=== PATIENT | female | born 1935 | race Caucasian/White ===

== ENCOUNTER 2016-07-22 18:20 | Inpatient (IN) ==
[2016-07-22] MEDS ORDERED: HYDROmorphone 2 MG/1 ML VIAL IV STA ×2 (19:20→23:40)
[2016-07-22] MEDS ORDERED: SODIUM CHLORIDE 0.9% 1,000 ML IV STA (19:20)
[2016-07-22] MEDS ORDERED: ONDANSETRON 4 MG/2 ML VIAL IV STA (19:20)
[2016-07-22 19:30] LABS: Basophils # 0.1 10*3/uL (0.0-0.2); Basophils % 0.7 % (0.0-0.8); Eosinophils % 0.1 % (0.00-10.9); Hematocrit 42.9 VOL% (35.7-47.0); Hemoglobin 14.5 GM/DL (12.0-16.0); Immature Granulocytes % 0.4 %; Immature Granulocytes Absolute 0.08 #; Lymphocytes # 6.6 10*3/uL (1.4-4.0); Lymphocytes % 33.1 % (21.3-54.2); Mean Corpuscular HGB Conc 33.8 GM/DL (32-36); Mean Corpuscular Hemoglobin 32 PG (27-34); Mean Corpuscular Volume 93.9 FL (87-102); Mean Platelet Volume 10.7 FL (9.6-12.0); Monocytes # 0.7 10*3/uL (0.11-0.8); Monocytes % 3.7 % (1.7-12.7); Neutrophils # 12.3 10*3/uL (1.4-7.4); Platelet Count 189 T/CUMM (130-400); Red Blood Count 4.57 MC/CUMM (3.8-5.5); Red Cell Distribution Width 12.9 % (9.3-17.3); White Blood Count 19.8 T/CUMM (4-12)
[2016-07-22 19:52] LABS: Alanine Aminotransferase 14 U/L (13-56); Albumin 3.2 G/DL (3.4-5.0); Alkaline Phosphatase 75 U/L (45-117); Aspartate Amino Transferase 17 U/L (0-37); Blood Urea Nitrogen 15 MG/DL (7-18); Calcium 8.5 MG/DL (8.5-10.1); Glucose 131 MG/DL (74-106); Magnesium 1.8 MG/DL (1.8-2.4); Osmolality,Calculated 277.7 MOS/KG (273-304); Potassium 3.8 MMOL/L (3.5-5.1); Sodium 138 MMOL/L (136-145); Total Protein 5.5 G/DL (6.4-8.3); Troponin I Only < 0.015 NG/ML (0.00-0.045)
[2016-07-22] MEDS ORDERED: HYDROmorphone 2 MG/1 ML VIAL ONE (19:52)
[2016-07-22] MEDS ORDERED: ONDANSETRON 4 MG/2 ML VIAL ONE (19:52)
--- NOTE | 2016-07-22 19:53 | EKG Report ---
Stationary ECG Study 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
--- NOTE | 2016-07-22 20:13 | CT Report ---
Referring physician: Michelle Estrella DO EXAM: CT abdomen and pelvis with contrast DATE: 07/22/2016 COMPARISON: 03/21/2010 REASON: Generalized abdominal and pelvic pain TECHNIQUE: Axial images of the abdomen and pelvis were obtained after administration of 100 cc of Omnipaque 350 IV contrast. Coronal and sagittal reformatted images were also provided. Total DLP is 382.8 mGy*cm. FINDINGS: Chronic scarring with progressive atelectasis/infiltration especially in the right lower lobe. Persistent right paraspinal abnormalities at the level of T10-T11 and T11-T12. Some of the measurements fall in the water density range. The more superior finding measures 22 mm on both exams. The more inferior finding measures 28 mm compared to 26 mm. The liver is normal in size with no masses or significant dilatation of the bile ducts in patient with prior cholecystectomy. Calcified granuloma in the nonenlarged spleen. The pancreas is atrophic in size with unremarkable adrenal glands. No acute findings in the kidneys. Calcification in the aortic wall with no significant adjacent adenopathy. Small hiatal hernia with ring like device at the GE junction. Mild gaseous distention of the stomach with dilatation of the small bowel. The small bowel is distended with fluid with the largest loop measuring 37 mm in diameter. There is a transition zone with more distal small bowel nondilated. The transition zone appears to be in the ileum in the pelvis. Diverticulosis of the colon with increased fecal material. No evidence of diverticulitis, appendicitis, or free air. Minimal free fluid in the pelvis. Prior hysterectomy with decompressed urinary bladder. Levoscoliosis of the lumbar spine with degenerative changes and postoperative changes. IMPRESSION: Persistent right paraspinal abnormalities at T10-T11 and T11-T12. The findings have not changed significantly in size and are probably related to neurogenic cysts, etc. Prior cholecystectomy, hysterectomy, laminectomy and postoperative findings in the stomach with ringlike device at the GE junction. Findings consistent with recurrent small bowel obstruction with minimal ascites. Diverticulosis of the colon with increased fecal material. Atrophic pancreas with progress and levoscoliosis of the lumbar spine and degenerative changes. The CT exam was performed using one or more of the following dose reduction techniques: Automated exposure control and adjustment of the mA and/or kV according to patient size. PROCEDURE INTERPRETED AT [facility] DEPARTMENT OF RADIOLOGY Final Report Signed by: Dr. Rosette Perdomo
[2016-07-22 20:23] LABS: Lactic Acid 1.6 MMOL/L (0.4-2.0)
[2016-07-22 21:52] LABS: Apearance,Urine CLEAR (Clear); Bacteria,Urine Occasional /HPF (Few); Bilirubin,Urine Negative (Negative); Blood, Urine Moderate mg/dL (Negative); Glucose,Urine (UA) Negative (Negative); Ketones,Urine 5 mg/dL (Negative); Mucus,Urine Occasional /LPF (Occasional); Nitrite,Urine Negative (Negative); Protein,Urine Negative; RBC,Urine 34 /HPF (0-4); Squamous Epithelial Cell,Urine Occasional /HPF (0-10); Urine Color Yellow (Yellow); Urine Specific Gravity > 1.060 (1.001-1.035); Urine Urobilinogen < 2.0 EU/DL (0.2-1.0)
[2016-07-22] MEDS ORDERED: HYDROmorphone 2 MG/1 ML VIAL IV PRN (22:54)
--- NOTE | 2016-07-22 22:54 | Emergency Department Note ---
Roger Richardson Brittany, am scribing for, and in the presence of, Michelle Estrella DO 19:16. Sameer Richardson Catherine, DO, personally performed the services described in this documentation, ascribed by Cherie Duran in my presence, and it is both accurate and complete . Arrival - Arrival Chief Complaint: Abdominal / Flank Pain Stated Complaint: abdominal pain ED Nursing Triage Note: Brought in per EMS from home with c/o abdominal pain onset yesterday. Describes as cramping. +nausea/vomiting. +subjective fever-- 99.1. Last bowel movement this am--describes as hard. Also c/o cough. Mode of Arrival: Stretcher Limitations: No Limitations Source: Patient, RN Notes Reviewed Time Seen by Provider: 07/22/16 18:39 - History of Present Illness HPI Narrative: Patient is a 81 y/o white female with a history significant for Diverticulitis presenting to the ED with c/o severe lower abdominal pain with an onset of yesterday. Patient reports that she has had some associated nausea and vomiting , but denies having any diarrhea. Patient notes last bowel movement was this morning, but describes consistency as hard. Last normal bowel movement without difficulties was 2-3 days ago. Patient states that she has ran a fever today, but attributes this to recent upper respiratory symptoms. Patient reports that she has not been seen by PCP Dr. Monsivais in about 3 months due to difficulty trying to get in to see him. Patient was diagnosed with Diverticulitis some years ago after having a Upper GI Scope. She was in the process of getting a Colonoscopy prior to the Upper GI Scope, but was not able to fulfill due to collapse of her colon. Patient notes that current GI upset secondary to Diverticulitis is the first in 3 years. She reports that she has been taking Coreg and a Potassium supplement as prescribed. No other complaint/pain. Patient has a surgical history of Cholecystectomy, Appendectomy, Hysterectomy, Caesarean Section x2, Lumpectomy. Onset (ago): day(s) (1) Consistency: constant Severity: severe Severity scale (1-10): 9 Quality: aching Allergies/Adverse Reactions: Allergies Allergy/AdvReac Type Severity Reaction Status Date / Time aspirin Allergy Palpitation Verified 07/22/16 18:29 s levofloxacin [From Levaquin] Allergy HIVES Verified 07/22/16 19:56 Penicillins Allergy UNCONSCIOUS Verified 07/22/16 18:29 Sulfa (Sulfonamide Allergy HIVES Verified 07/22/16 18:29 Antibiotics) Home Medications: Home Medications Medication Instructions Recorded Confirmed Type HYDROcodone/ACETAMIN 7.5-325 1 tablet PO Q4H PRN #20 tablet 03/15/16 07/22/16 Rx [[place] 7.5-325] Carvedilol [Coreg] 12.5 mg PO BID 07/22/16 07/22/16 History Losartan [Cozaar] 25 mg PO BEDTIME 07/22/16 07/22/16 History Review of System - Review of System 12 point system: reviewed and no additional remarkable complaints except as stated - Review of System Constitutional: Present: fever. Absent: chills Eyes: Absent: vision change Head/Ears/Nose/Throat: Present: nasal drainage, sore throat Respiratory: Present: cough. Absent: respiratory distress Cardiovascular: Absent: chest pain Gastrointestinal: Present: as per HPI, abdominal pain, nausea, vomiting. Absent : diarrhea, constipation Genitourinary female: Absent: dysuria, frequency, urgency Musculoskeletal: Absent: arm pain, back pain, leg pain, neck pain Skin: Absent: rash Neurological: Absent: headache Psychiatric: Absent: anxiety, depression Hematological/Lymphatic: Absent: easy bleeding, easy bruising Medical,Surgical,& Family Hx - Medical History Cardio: History of: Cardiac Dysrhythmia (history of SVT ), Hypertension, [place] Neurology: History of: Cerebrovascular Accident, Migraine Respiratory: History of: Bronchitis Gastrointestinal: History of: Diverticulitis/ Diverticulosis, GI Problems ( constipation) Musculoskeletal: History of: Herniated Disk, Musculoskeletal Problems (arthritis ) Other: No history of: Cancer - Surgical History Cardiac Surgeries: Sugical HX of: Cardiac Catheterization Thoracic Surgeries: Patient denies;: Organ Transplant Abdominal Surgeries: Surgical HX of: Appendectomy, Cholecystectomy Reproductive Surgeries: Surgical HX of;: Section, Hysterectomy Orthopedic Surgeries: Surgical HX of;: Orthopedic Surgery - Family History Family History: Reports;: Family Cancer (two sisters (breast cancer)), Family Heart Disease (mother and father), Family Hypertension (mother and father), Family Stroke (mother and father) - Social History Smoking Status: Former smoker Frequency of Alcohol Use: None Type of Drug Use: None Exam Vital Signs: Vital Signs Temperature 98.0 F 04/14/17 18:43 Pulse Rate 70 07/22/16 18:43 Respiratory Rate 18 07/22/16 18:43 Blood Pressure 134/69 07/22/16 18:43 O2 Sat by Pulse Oximetry 96 07/22/16 18:20 - General General appearance: alert, in no apparent distress - Head Head exam: Present: atraumatic, normocephalic, normal inspection - Eye Eye exam: Present: normal appearance, PERRL, EOMI - ENT ENT exam: Present: normal exam, normal oropharynx, mucous membranes moist - Neck Neck exam: Present: normal inspection, full ROM, trachea midline - Chest Chest inspection: Present: normal inspection, symmetric chest wall rise - Respiratory Respiratory exam: Present: normal lung sounds bilaterally. Absent: rales, rhonchi, wheezes - Cardiovascular Cardiovascular exam: Present: regular rate, normal rhythm, normal heart sounds. Absent: murmur, rubs, gallop - Abdominal Exam Abdominal exam: Present: soft, tenderness (diffuse lower abdominal pain to palpation), normal bowel sounds. Absent: distention - Extremities Exam Extremities exam: Present: normal inspection - Back Exam Back exam: Present: normal inspection - Neurological Exam Neurological exam: Present: alert, oriented X3, CN II-XII intact. Absent: motor sensory deficit - Psychiatric Psychiatric exam: Present: normal affect - Skin Skin exam: Present: warm, dry Course Course Narrative: This is an 81-year-old female who is coming into the ER today complaining of 2 days of lower abdominal pain. She does have a history of diverticulitis and thought that that's what was going on. She reports she is unable to E because it causes pain she's been having normal bowel movements however she was slightly constipated this morning she's had no urinary complaints she's had no fever or chills. Her sense that she normally does not complain and was very uncomfortable today with her pain. She was last admitted for her diverticulitis approximately 3-4 months ago. No symptoms are reported physical exam she is awake alert viral signs are stable HEENT exam is drawn neck is supple heart is regular rhythm her lungs are clear abdomen is round soft she is diffusely tender but she seems to localize her pain to the left lower quadrant and the suprapubic area did not appreciate rebound or guarding bowel sounds are hyperactive at this time. History of his were intact neurologic exam is nonfocal treatment included IV hydration we did give her 70 for pain and placed an NG tube and a full workup. Her CT scan shows a partial small bowel obstruction. Her blood work was also reviewed. I did place a phone call to the general surgeon Dr. Hardy we will be placing her inside the hospital for treatment of the diverticulitis. She will be placed on clindamycin and given an NG tube. The patient and her family's agreement with this treatment. - Consultations Consultation #1: Dr. Noland Time: 22:53 Results - Labs CBC & BMP: 07/22/16 19:14 07/22/16 19:14 Lab Results: I have reviewed the patients labs - EKG EKG results: WNL, no acute changes - Diagnostic Findings Procedure: CT Abdomen and Pelvis: report reviewed by me (partial SBO) Disposition Clinical Impression: Abdominal pain, Small bowel obstruction Case discussed with: patient, patient's family Disposition: Still a Patient Condition: Stable Time of Disposition: 22:54
[2016-07-23] MEDS: SODIUM CHLORIDE 0.9% 1,000 ML IV SCH ×2 (00:46→14:18)
[2016-07-23] MEDS: CLINDAMYCIN INJ 600 MG in PREMIX 1 EACH IV SCH ×3 (01:23→16:41)
[2016-07-23] MEDS ORDERED: AMIODARONE INJ 450 MG in DEXTROSE 5% 241 ML IV SCH ×2 (04:00→22:00)
--- NOTE | 2016-07-23 08:09 | XRay Report ---
Portable chest Date: 07/23/2016 Clinical history: Nasogastric tube placement Comparison: 03/14/2016 Technique: Portable AP sitting chest Findings: The heart is normal in size. Chronic scarring in the lungs with minimal atelectasis. The nasogastric tube is in satisfactory position. Postoperative findings in the upper abdomen with gaseous distention of the visualized bowel. Impression: Nasogastric tube in satisfactory position in the stomach. Chronic scarring in the lungs with atelectasis. Postoperative findings in the upper abdomen. PROCEDURE INTERPRETED AT [facility] DEPARTMENT OF RADIOLOGY Final Report Signed by: Dr. Rosette Perdomo
--- NOTE | 2016-07-23 08:24 | General Surg History&Physical ---
Assessment and Plan - Time spent with patient Time spent with patient: Greater than 30 minutes (1) Small bowel obstruction Status: Acute Assessment and plan: She has a small bowel obstruction likely secondary to intra-abdominal adhesions. I reviewed her CT scan and she has a patent superior mesenteric artery and I think it would be unlikely that she has ischemic bowel. She has nothing that shows acidosis or signs of ischemia on her lab work. Her white blood cell count is a little bit elevated. Patient states she recently has had a urinary tract infection recently had an upper respiratory infection. We will check follow-up lab work. I'm going to treat her with IV fluids and nasogastric suction for now. I explained to her that if her small bowel obstruction does not resolve with this conservative treatment and we may need to look at surgery. Current Visit: Yes (2) Leukocytosis Status: Acute Assessment and plan: It is unclear if this is related to her intra-abdominal process. I'm treating her with IV antibiotics and IV fluids. Current Visit: Yes History of Present Illness Chief complaint: abdominal pain History of present illness: Ms. Ryan is a 81 year old female Yesterday morning had a gradual onset of lower abdominal pain which was cramping and poorly localized. She describes the pain is moderately severe and actually feels a little bit better this morning. She had a nasogastric tube placed several hours ago and is had about 700 mL of output. She describes the pain is being in her lower abdomen more on the left side than the right side. She does not know of any aggravating or alleviating factors. She is recently had an upper respiratory infection and has had some low-grade fever related to this couple of days ago. She is had some cough as well. CT scan was obtained last night showing a small bowel obstruction. She has had multiple previous abdominal operations. Home Medications Medication Instructions Recorded Confirmed Type HYDROcodone/ACETAMIN 7.5-325 1 tablet PO Q4H PRN #20 tablet 03/15/16 07/22/16 Rx [[place] 7.5-325] Carvedilol [Coreg] 12.5 mg PO BID 07/22/16 07/22/16 History Losartan [Cozaar] 25 mg PO BEDTIME 07/22/16 07/22/16 History Allergies Allergy/AdvReac Type Severity Reaction Status Date / Time aspirin Allergy Palpitation Verified 07/22/16 18:29 s levofloxacin [From Levaquin] Allergy HIVES Verified 07/22/16 19:56 Penicillins Allergy UNCONSCIOUS Verified 07/22/16 18:29 Sulfa (Sulfonamide Allergy HIVES Verified 07/22/16 18:29 Antibiotics) Medical,Surgical,& Family Hx - Medical History Cardio: History of: Cardiac Dysrhythmia (history of SVT ), Hypertension, [place] Neurology: History of: Cerebrovascular Accident, Migraine HEENT: History of: Eye Problem Respiratory: History of: Bronchitis Gastrointestinal: History of: Diverticulitis/ Diverticulosis, GI Problems ( constipation) Musculoskeletal: History of: Herniated Disk, Musculoskeletal Problems (arthritis ) Other: No history of: Cancer - Surgical History Cardiac Surgeries: Sugical HX of: Cardiac Catheterization Thoracic Surgeries: Patient denies;: Organ Transplant Abdominal Surgeries: Surgical HX of: Appendectomy, Cholecystectomy Reproductive Surgeries: Surgical HX of;: Section, Hysterectomy Orthopedic Surgeries: Surgical HX of;: Orthopedic Surgery - Family History Family History: Reports;: Family Cancer (two sisters (breast cancer)), Family Heart Disease (mother and father), Family Hypertension (mother and father), Family Stroke (mother and father) - Social History Smoking Status: Former smoker Frequency of Alcohol Use: None Type of Drug Use: None Exam - Constitutional Vitals: Period Temp Pulse Resp BP Sys/Watt Pulse Ox Last 24 Hr 70 F-98.3 F 59-63 14-18 116-129/51-57 95-98 General appearance: no acute distress - Head Head exam: Present: normocephalic - Eye Eye exam: Absent: scleral icterus - ENT Mouth exam: Present: normal voice - Neck Neck exam: Present: trachea midline. Absent: tenderness - Respiratory Respiratory exam: Present: clear to auscultation bilaterally. Absent: accessory muscle use - Cardiovascular Cardiovascular exam: Present: RRR - GI/Abdominal GI/Abdominal exam: Present: hyperactive bowel sounds, soft. Absent: distended, tenderness, rebound - Extremities Exam Extremities exam: Absent: edema - Neurological Exam Neurological exam: Present: alert, oriented X3. Absent: motor sensory deficit Speech: Present: normal - Skin Skin exam: Present: normal color - Constitutional Constitutional: Present: anorexia. Absent: chills, fever(s), weight loss - EENT Nose, mouth and throat: Absent: dysphagia - Cardiovascular Cardiovascular: Absent: chest pain at rest, chest pain with activity, dyspnea, dyspnea on exertion, palpitations, syncope - Respiratory Respiratory: Present: cough. Absent: dyspnea, hemoptysis, dyspnea on exertion - Gastrointestinal Gastrointestinal: Present: abdominal pain, bloating, cramping, nausea, vomiting. Absent: coffee ground emesis, diarrhea, hematemesis, hematochezia, melena, jaundice - Genitourinary Genitourinary: Absent: hematuria - Musculoskeletal Musculoskeletal: Absent: back pain - Neurological Neurological: Absent: focal weakness, syncope - Endocrine Endocrine: Absent: polyuria Hematologic/Lymphatic: Absent: easy bleeding, easy bruising Results - Labs CBC & BMP: 07/22/16 19:14 07/22/16 19:14 Lab Results: I have reviewed the past 24 hour labs - Diagnostic Findings Procedure: CT Abdomen and Pelvis: image reviewed by me, report reviewed by me
[2016-07-23] MEDS: MORPHINE 2 MG/1 ML SYRINGE IV PRN ×2 (09:32→13:35)
[2016-07-23] MEDS: ONDANSETRON 4 MG/2 ML VIAL IV PRN (09:34)
[2016-07-23] MEDS ORDERED: METOPROLOL TARTRATE 5 MG/5 ML VIAL IV ONE ×2 (20:00)
[2016-07-23 20:17] LABS: Basophils # 0.1 10*3/uL (0.0-0.2); Basophils % 0.7 % (0.0-0.8); Eosinophils % 0.1 % (0.00-10.9); Hematocrit 40.9 VOL% (35.7-47.0); Hemoglobin 13.5 GM/DL (12.0-16.0); Immature Granulocytes % 0.5 %; Immature Granulocytes Absolute 0.09 #; Lymphocytes % 32.5 % (21.3-54.2); Mean Corpuscular Hemoglobin 32 PG (27-34); Mean Platelet Volume 10.6 FL (9.6-12.0); Monocytes # 1.2 10*3/uL (0.11-0.8); Monocytes % 6.4 % (1.7-12.7); Neutrophils % 59.8 % (38.7-73.9); Platelet Count 178 T/CUMM (130-400); Red Blood Count 4.26 MC/CUMM (3.8-5.5); Red Cell Distribution Width 13.1 % (9.3-17.3); White Blood Count 18.5 T/CUMM (4-12)
--- NOTE | 2016-07-23 20:17 | XRay Report ---
Portable chest Date: 07/23/2016 Clinical history: Chest pain Comparison: 07/23/2016 Technique: Portable AP sitting chest Findings: The heart is normal in size. Chronic scarring in the lungs with progressive atelectasis/infiltration at right lung base. Nasogastric tube in the stomach. Postoperative findings in the upper abdomen. Osteopenia with degenerative changes. Impression: Nasogastric tube remains in satisfactory position. Progressive atelectasis/infiltration at right lung base. PROCEDURE INTERPRETED AT [facility] DEPARTMENT OF RADIOLOGY Final Report Signed by: Dr. Rosette Perdomo
[2016-07-23 20:31] LABS: Magnesium 1.7 MG/DL (1.8-2.4); Phosphorous 3.5 MG/DL (2.5-4.9)
--- NOTE | 2016-07-23 21:02 | Hospitalist Consult Note ---
Assessment and Plan - Time spent with patient Time spent with patient: Greater than 30 minutes (45 minutes of critical care time spent with this patient.) (1) Chest pain Status: Acute Current Visit: Yes Qualifiers: Chest pain type: chest pain due to myocardial ischemia Ischemic chest pain type: unspecified angina pectoris type Qualified Code(s): I20.9 - Angina pectoris, unspecified (2) Atrial fibrillation with RVR Status: Acute Assessment and plan: Admit to CCU. Amiodarone drip. Telemetry. Cardiac markers. ECHO. Replace lytes as needed. Check TSH. Cardiology consult in AM. Add Arixtra. Current Visit: No (3) Small bowel obstruction Status: Acute Assessment and plan: Management per primary service Current Visit: Yes (4) Hypertension Status: Acute Assessment and plan: Blood pressure was actually low likely due to tachycardia and decreased cardiac output. Will monitor closely. Gentle IVF. Current Visit: Yes History of Present Illness - Data of Consult Consult date: 07/23/16 Requesting Physician: Omar Noland III. - Consult Narrative Reason for consult: cardiac alert History of present illness: Ms. Ryan is a 81 year old female with a history of afib, HTN, CAD s /p VT and COPD and multiple abdominal surgeries who presented to the hospital with nausea, vomiting and abdominal pain. She was found to have SBO and was being treated by surgery with conservative treatment. We were called to see patient via cardiac alert due to complaints of left sided intermittent sharp/ dull chest pain that radiated to left arm associated with SOB. No nausea, vomiting, abdominal pain, diaphoresis. She has had a wet sounding coarse cough. No fever. No lightheadedness or dizziness. She reports a moderate throbbing diffuse headache without photo/phonophobia, parasthesias, or paralysis. No neck stiffness. EKG showed afib with RPR at [address] depression in V4-V6. Cardiac panel, BMP , MG, Phos were ordered Stat. CXR showed hyperaeration chronic interstitial findings but no infiltrate or edema. She was given Lopressor 5mg IV x 1. She developed hypotension to 80/50's. She was transferred to CCU for further treatment. A 10-point review of systems was reviewed with the patient and was otherwise unremarkable. CC: Omar Noland III., - Home Medications and Allergies Home Medications: Home Medications Medication Instructions Recorded Confirmed Type HYDROcodone/ACETAMIN 7.5-325 1 tablet PO Q4H PRN #20 tablet 03/15/16 07/22/16 Rx [[place] 7.5-325] Carvedilol [Coreg] 12.5 mg PO BID 07/22/16 07/22/16 History Losartan [Cozaar] 25 mg PO BEDTIME 07/22/16 07/22/16 History Allergies/Adverse Reactions: Allergies Allergy/AdvReac Type Severity Reaction Status Date / Time aspirin Allergy Palpitation Verified 07/22/16 18:29 s levofloxacin [From Levaquin] Allergy HIVES Verified 07/22/16 19:56 Penicillins Allergy UNCONSCIOUS Verified 07/22/16 18:29 Sulfa (Sulfonamide Allergy HIVES Verified 07/22/16 18:29 Antibiotics) Medical,Surgical,& Family Hx - Medical History Cardio: History of: Cardiac Dysrhythmia (history of SVT ), Hypertension, [place] Neurology: History of: Cerebrovascular Accident, Migraine HEENT: History of: Eye Problem Respiratory: History of: Bronchitis Gastrointestinal: History of: Diverticulitis/ Diverticulosis, GI Problems ( constipation) Musculoskeletal: History of: Herniated Disk, Musculoskeletal Problems (arthritis ) Other: No history of: Cancer - Surgical History Cardiac Surgeries: Sugical HX of: Cardiac Catheterization Thoracic Surgeries: Patient denies;: Organ Transplant Abdominal Surgeries: Surgical HX of: Appendectomy, Cholecystectomy Reproductive Surgeries: Surgical HX of;: Section, Hysterectomy Orthopedic Surgeries: Surgical HX of;: Orthopedic Surgery - Family History Family History: Reports;: Family Cancer (two sisters (breast cancer)), Family Heart Disease (mother and father), Family Hypertension (mother and father), Family Stroke (mother and father) - Social History Smoking Status: Former smoker Frequency of Alcohol Use: None Type of Drug Use: None 12 point system: reviewed and no additional remarkable complaints except as stated Exam - Constitutional Vitals: Period Temp Pulse Resp BP Sys/Watt Pulse Ox Last 24 Hr 70 F-100.1 F 59-75 14-18 116-147/51-83 90-99 General appearance: no acute distress, cachectic, other (chronically ill appearing, elderly) Exam: GEN: chronically ill appearing, elderly, NAD HEENT: PERRL, EOMI, sclera clear, conjunctiva slightly pale NECK: supple, no thyromegaly or masses appreciated. No JVD CV: irregularly irregular rate and rhythm, No obvious murmursm rubs, gallops LUNGS: slightly coarse bilaterally, fair aeration, nonlabored breathing noted ABDOMEN: Soft, hypoactive bowel sounds, NTTP, no HSM or masses appreciated EXTREMITIES: Warm no c/c/e. NEURO: CN2-12 intact, 4/5 strength of upper and lower extremities bilaterally. No dysmetria noted. Sensory exam grossly intact. Gait not assessed. Results - Labs CBC & BMP: 07/23/16 20:03 07/22/16 19:14 - EKG EKG shows: atrial fibrillation - Diagnostic Findings Procedure: Chest x-ray: image reviewed by me (hyperaeration with no acute process noted.)
[2016-07-23] MEDS ORDERED: KETOROLAC 15 MG/1 ML VIAL IV ONE (21:17)
[2016-07-23 21:18] LABS: Albumin 3.1 G/DL (3.4-5.0); Calcium 8.2 MG/DL (8.5-10.1); Magnesium 1.7 MG/DL (1.8-2.4); Osmolality,Calculated 281.3 MOS/KG (273-304); Potassium 3.7 MMOL/L (3.5-5.1); Total Protein 5.3 G/DL (6.4-8.3); Troponin I Only 0.022 NG/ML (0.00-0.045)
[2016-07-23] MEDS ORDERED: AMIODARONE 150 MG/3 ML VIAL ONE (21:22)
[2016-07-23] MEDS ORDERED: MAGNESIUM SULF RIDER 4 GM in PREMIX 1 EACH IV PRN (21:26)
[2016-07-23] MEDS ORDERED: AMIODARONE INJ 150 MG in DEXTROSE 5% 100 ML IV ONE (21:30)
[2016-07-23] MEDS: MAGNESIUM SULF RIDER 2 GM in PREMIX 1 EACH IV PRN (22:14)
[2016-07-23 22:18] LABS: Troponin I Only 0.035 NG/ML (0.00-0.045)
[2016-07-23] MEDS: BUDESONIDE/FORMOTEROL 80-4.5 INHALER 6.9 GM INH SCH (22:21)
[2016-07-23 22:23] LABS: Free T4 (Free Thyroxine) 1.55 NG/DL (0.76-1.46); Thyroid Stimulating Hormone 0.728 uIU/ml (0.358-3.74)
[2016-07-23] MEDS: LEVALBUTEROL 1.25 MG/3 ML NEB RESP TX SCH (22:48)
[2016-07-24] MEDS: CLINDAMYCIN INJ 600 MG in PREMIX 1 EACH IV SCH ×3 (00:11→17:12)
--- NOTE | 2016-07-24 00:58 | Event Note ---
Patient is on amiodarone infusion for atrial fibrillation with rapid ventricular rate reported to have some frequent sinus pauses. Her blood pressure is low in 90s over 60s I will stop amiodarone infusion patient to be seen by cardiology. Will watch and start on Cardizem if rate remained elevated and the patient able to tolerate
[2016-07-24] MEDS ORDERED: SODIUM CHLORIDE 0.9% 500 ML IV ONE (01:06)
[2016-07-24] MEDS: DILTIAZEM INJ 100 MG in SODIUM CHLORIDE 0.9% 100 ML IV SCH ×2 (01:30→05:22)
[2016-07-24] MEDS: SODIUM CHLORIDE 0.9% 1,000 ML IV SCH ×4 (01:50→22:05)
[2016-07-24 02:09] LABS: Apearance,Urine Slightly Hazy (Clear); Bilirubin,Urine Negative (Negative); Blood, Urine Large mg/dL (Negative); Glucose,Urine (UA) Negative (Negative); Hyaline Casts,Urine 13 /LPF (0-3); Ketones,Urine 20 mg/dL (Negative); Mucus,Urine Occasional /LPF (Occasional); Nitrite,Urine Negative (Negative); Protein,Urine 30 MG/DL; RBC,Urine 7 /HPF (0-4); Squamous Epithelial Cell,Urine Occasional /HPF (0-10); Urine Color Yellow (Yellow); Urine Specific Gravity 1.018 (1.001-1.035); Urine Urobilinogen < 2.0 EU/DL (0.2-1.0); WBC,Urine 3 /HPF (0-6)
[2016-07-24] MEDS ORDERED: AMIODARONE INJ 450 MG in DEXTROSE 5% 241 ML IV SCH ×2 (04:00→13:30)
[2016-07-24 05:03] LABS: Basophils # 0.2 10*3/uL (0.0-0.2); Eosinophils % 0.1 % (0.00-10.9); Hematocrit 39.7 VOL% (35.7-47.0); Immature Granulocytes % 0.4 %; Immature Granulocytes Absolute 0.06 #; Lymphocytes # 6.6 10*3/uL (1.4-4.0); Lymphocytes % 38.9 % (21.3-54.2); Mean Corpuscular HGB Conc 32.7 GM/DL (32-36); Mean Corpuscular Hemoglobin 32 PG (27-34); Mean Corpuscular Volume 96.4 FL (87-102); Mean Platelet Volume 11.3 FL (9.6-12.0); Monocytes # 1.1 10*3/uL (0.11-0.8); Monocytes % 6.5 % (1.7-12.7); Neutrophils % 53.1 % (38.7-73.9); Platelet Count 151 T/CUMM (130-400); Red Blood Count 4.12 MC/CUMM (3.8-5.5); Red Cell Distribution Width 13.1 % (9.3-17.3); White Blood Count 16.9 T/CUMM (4-12)
[2016-07-24 05:37] LABS: Magnesium 2.4 MG/DL (1.8-2.4); Osmolality,Calculated 278.3 MOS/KG (273-304); Potassium 3.5 MMOL/L (3.5-5.1)
[2016-07-24 05:38] LABS: Albumin 2.5 G/DL (3.4-5.0); Calcium 7.9 MG/DL (8.5-10.1); Osmolality,Calculated 278.3 MOS/KG (273-304); Phosphorous 3.4 MG/DL (2.5-4.9); Potassium 3.6 MMOL/L (3.5-5.1)
[2016-07-24 06:07] LABS: Troponin I Only 0.059 NG/ML (0.00-0.045)
[2016-07-24] MEDS ORDERED: KETOROLAC 15 MG/1 ML VIAL IV ONE (06:07)
--- NOTE | 2016-07-24 06:22 | General Surgery Progress Note ---
Assessment and Plan (1) Small bowel obstruction Status: Acute Assessment and plan: She has a small bowel obstruction likely secondary to intra-abdominal adhesions. I reviewed her CT scan and she has a patent superior mesenteric artery and I think it would be unlikely that she has ischemic bowel. She has nothing that shows acidosis or signs of ischemia on her lab work. Her white blood cell count is a little bit elevated. Patient states she recently has had a urinary tract infection recently had an upper respiratory infection. We will check follow-up lab work. I'm going to treat her with IV fluids and nasogastric suction for now. I explained to her that if her small bowel obstruction does not resolve with this conservative treatment and we may need to look at surgery. 07/24: She denies any abdominal pain this morning. Her abdomen seems less distended and is not tender at all. During the night she went into atrial fibrillation with a rapid ventricular response is a question whether or not there was a cardiac event. She is moved to the CCU in her right has been managed by Hospital medicine and cardiology has been consulted. There is also question of developing pneumonia in her right lower lobe. She is on IV antibiotics. His may be the source of her elevated white blood cell count. It appears that her small bowel obstruction is responding to conservative treatment. Certainly we would like to avoid surgery if possible in this patient with multiple other medical issues. Current Visit: Yes (2) Leukocytosis Status: Acute Assessment and plan: It is unclear if this is related to her intra-abdominal process. I'm treating her with IV antibiotics and IV fluids. Current Visit: Yes Subjective Patient reports: Present: feels better. Absent: still having pain, nausea, vomiting, fever Exam - Constitutional Vitals: Period Temp Pulse Resp BP Sys/Watt Pulse Ox Last 24 Hr 97 F-100.1 F 64-145 12-26 59-147/47-87 90-100 General appearance: no acute distress - Head Head exam: Present: normocephalic - Eye Eye exam: Absent: scleral icterus - ENT Mouth exam: Present: normal voice - Respiratory Respiratory exam: Absent: accessory muscle use - GI/Abdominal GI/Abdominal exam: Present: soft. Absent: distended, guarding, tenderness, rebound - Neurological Exam Neurological exam: Present: alert, oriented X3 Speech: Present: normal Results - Labs CBC & BMP: 07/24/16 04:18 07/24/16 04:18 Lab Results: I have reviewed the past 24 hour labs
[2016-07-24] MEDS: LEVALBUTEROL 1.25 MG/3 ML NEB RESP TX SCH ×3 (07:13→23:14)
--- NOTE | 2016-07-24 07:54 | Cardiology Consult Note ---
History of Present Illness - Data of Consult Patient: new to practice Consult date: 07/24/16 - Consult Narrative History of present illness: Cardiology consult 81-year-old woman admitted with lower abdominal pain. She has small bowel obstruction secondary to adhesions. Today she went into rapid atrial fibrillation with ventricular rates of 140-150. She was placed on IV Cardizem and has been having long pauses of up to 6 seconds. The patient has a history of paroxysmal atrial fibrillation and takes Coreg 12.5 mg twice daily. She has been followed by Dr. Scott for 20 years who recently retired. No history of stroke. She quit smoking 3 years ago but did smoke 60 years. She does not drink any alcohol. No history of diabetes. No history of peptic ulcer disease. She denies melena. She is 5 feet 4 inches tall and weighs 111 pounds. She has always been diminutive. Yesterday's EKG showed sinus rhythm with left axis and ST-T wave changes. Chest x-ray shows a normal heart size with chronic interstitial changes. Surgeries include appendectomy, cholecystectomy, , hysterectomy, lumbar laminectomy, bilateral cataract extractions. Multiple allergies including sulfa penicillin and Levaquin. Aspirin causes tachycardia. Blood pressure 114/76 pulse is 120-140 and irregular. O2 sat is 95% on on 4 L cannula. Alert and responsive. Soft right carotid bruit. Decreased breath sounds but fairly clear. Irregular rhythm and tachycardic no murmur Abdomen mildly tender on the left side femoral pulses 2+ without bruits of pulses 2+ no edema Impression Small bowel obstruction surgery to adhesions Paroxysmal atrial fibrillation with pauses up to 6 seconds while on IV Cardizem Hypertension History of paroxysmal atrial fibrillation on Coreg 12.5 mg twice daily COPD Longtime tobacco abuse. 60 pack years, she quit 2013 Multiple surgeries Multiple allergies Plan Echo now Cardioversion. Her son Ilya is in route to the hospital now CC: Omar Noland, III., - Home Medications and Allergies Home Medications: Home Medications Medication Instructions Recorded Confirmed Type HYDROcodone/ACETAMIN 7.5-325 1 tablet PO Q4H PRN #20 tablet 03/15/16 07/22/16 Rx [Valentine 7.5-325] Carvedilol [Coreg] 12.5 mg PO BID 07/22/16 07/22/16 History Losartan [Cozaar] 25 mg PO BEDTIME 07/22/16 07/22/16 History Allergies/Adverse Reactions: Allergies Allergy/AdvReac Type Severity Reaction Status Date / Time aspirin Allergy Palpitation Verified 07/22/16 18:29 s levofloxacin [From Levaquin] Allergy HIVES Verified 07/22/16 19:56 Penicillins Allergy UNCONSCIOUS Verified 07/22/16 18:29 Sulfa (Sulfonamide Allergy HIVES Verified 07/22/16 18:29 Antibiotics) Medical,Surgical,& Family Hx - Medical History Cardio: History of: Cardiac Dysrhythmia (history of SVT ), Hypertension, [place] Neurology: History of: Cerebrovascular Accident, Migraine HEENT: History of: Eye Problem Respiratory: History of: Bronchitis Gastrointestinal: History of: Diverticulitis/ Diverticulosis, GI Problems ( constipation) Musculoskeletal: History of: Herniated Disk, Musculoskeletal Problems (arthritis ) Other: No history of: Cancer - Surgical History Cardiac Surgeries: Sugical HX of: Cardiac Catheterization Thoracic Surgeries: Patient denies;: Organ Transplant Abdominal Surgeries: Surgical HX of: Appendectomy, Cholecystectomy Reproductive Surgeries: Surgical HX of;: Section, Hysterectomy Orthopedic Surgeries: Surgical HX of;: Orthopedic Surgery - Family History Family History: Reports;: Family Cancer (two sisters (breast cancer)), Family Heart Disease (mother and father), Family Hypertension (mother and father), Family Stroke (mother and father) - Social History Smoking Status: Former smoker Frequency of Alcohol Use: None Type of Drug Use: None Physical Examination Vital Signs Temp Pulse Resp BP Pulse Ox 98.0 F 70 18 134/69 96 07/22/16 18:20 07/22/16 18:20 07/22/16 18:20 07/22/16 18:20 07/22/16 18:20 Result/EKG - Labs CBC & BMP: 07/24/16 04:18 07/24/16 04:18 Labs: Laboratory Results - last 24 hr 07/23/16 07/23/16 07/23/16 20:03 20:03 20:03 WBC 18.5 H RBC 4.26 Hgb 13.5 Hct 40.9 MCV 96.0 MCH 32 MCHC 33.0 RDW 13.1 Plt Count 178 MPV 10.6 Neut % (Auto) 59.8 Lymph % (Auto) 32.5 [place] % (Auto) 6.4 Eos % (Auto) 0.1 Baso % (Auto) 0.7 Neut # (Auto) 11.0 H Lymph # (Auto) 6.0 H [place] # (Auto) 1.2 H Eos # (Auto) 0.0 Baso # (Auto) 0.1 Immature Gran % 0.5 Nucleated RBC % 0.0 Immature Gran # 0.09 Nucleated RBCs # 0.00 Sodium 141 Potassium 3.7 Chloride 104 Carbon Dioxide 25 Anion Gap 15.7 H BUN 12 Creatinine 0.50 L GFR Calculation 79 BUN/Creatinine Ratio 24.00 H Glucose 114 H Calculated Osmolality 281.3 Calcium 8.2 L Phosphorus 3.5 Magnesium 1.7 L 1.7 L Total Bilirubin 1.00 AST 25 ALT 25 Alkaline Phosphatase 76 Total Creatine Kinase CK-MB (CK-2) Troponin I 0.022 Total Protein 5.3 L Albumin 3.1 L Globulin 2.2 L Albumin/Globulin Ratio 1.4 Free T4 TSH 3rd Generation Urine Color Urine Appearance Urine pH Ur Specific Henriette Urine Protein Urine Glucose (UA) Urine Ketones Urine Blood Urine Nitrate Urine Bilirubin Urine Urobilinogen Urine Leukocytes Urine RBC Urine WBC Ur Squamous Epith Cells Hyaline Casts Urine Mucus Ur Culture Indicated? 07/23/16 07/23/16 07/24/16 21:46 21:47 01:45 WBC RBC Hgb Hct MCV MCH MCHC RDW Plt Count MPV Neut % (Auto) Lymph % (Auto) [place] % (Auto) Eos % (Auto) Baso % (Auto) Neut # (Auto) Lymph # (Auto) [place] # (Auto) Eos # (Auto) Baso # (Auto) Immature Gran % Nucleated RBC % Immature Gran # Nucleated RBCs # Sodium Potassium Chloride Carbon Dioxide Anion Gap BUN Creatinine GFR Calculation BUN/Creatinine Ratio Glucose Calculated Osmolality Calcium Phosphorus Magnesium Total Bilirubin AST ALT Alkaline Phosphatase Total Creatine Kinase 30 CK-MB (CK-2) 1.4 Troponin I 0.035 Total Protein Albumin Globulin Albumin/Globulin Ratio Free T4 1.55 H TSH 3rd Generation 0.728 Urine Color Yellow Urine Appearance Slightly hazy Urine pH 5.0 Ur Specific Henriette 1.018 Urine Protein 30 Urine Glucose (UA) Negative Urine Ketones 20 Urine Blood Large Urine Nitrate Negative Urine Bilirubin Negative Urine Urobilinogen < 2.0 H Urine Leukocytes Negative Urine RBC 7 Urine WBC 3 Ur Squamous Epith Cells Occasional Hyaline Casts 13 Urine Mucus Occasional Ur Culture Indicated? Not indicated 07/24/16 07/24/16 07/24/16 04:17 04:17 04:18 WBC 16.9 H RBC 4.12 Hgb 13.0 Hct 39.7 MCV 96.4 MCH 32 MCHC 32.7 RDW 13.1 Plt Count 151 MPV 11.3 Neut % (Auto) 53.1 Lymph % (Auto) 38.9 [place] % (Auto) 6.5 Eos % (Auto) 0.1 Baso % (Auto) 1.0 H Neut # (Auto) 9.0 H Lymph # (Auto) 6.6 H [place] # (Auto) 1.1 H Eos # (Auto) 0.0 Baso # (Auto) 0.2 Immature Gran % 0.4 Nucleated RBC % 0.0 Immature Gran # 0.06 Nucleated RBCs # 0.00 Sodium 141 Potassium 3.5 Chloride 105 Carbon Dioxide 26 Anion Gap 13.5 BUN 10 Creatinine 0.40 L GFR Calculation 85 BUN/Creatinine Ratio 25.00 H Glucose 86 Calculated Osmolality 278.3 Calcium 8.0 L Phosphorus Magnesium 2.4 Total Bilirubin AST ALT Alkaline Phosphatase Total Creatine Kinase 33 CK-MB (CK-2) 1.8 Troponin I 0.059 H D Total Protein Albumin Globulin Albumin/Globulin Ratio Free T4 TSH 3rd Generation Urine Color Urine Appearance Urine pH Ur Specific Henriette Urine Protein Urine Glucose (UA) Urine Ketones Urine Blood Urine Nitrate Urine Bilirubin Urine Urobilinogen Urine Leukocytes Urine RBC Urine WBC Ur Squamous Epith Cells Hyaline Casts Urine Mucus Ur Culture Indicated? 07/24/16 04:18 WBC RBC Hgb Hct MCV MCH MCHC RDW Plt Count MPV Neut % (Auto) Lymph % (Auto) [place] % (Auto) Eos % (Auto) Baso % (Auto) Neut # (Auto) Lymph # (Auto) [place] # (Auto) Eos # (Auto) Baso # (Auto) Immature Gran % Nucleated RBC % Immature Gran # Nucleated RBCs # Sodium 141 Potassium 3.6 Chloride 105 Carbon Dioxide 25 Anion Gap 14.6 BUN 11 Creatinine 0.40 L GFR Calculation 85 BUN/Creatinine Ratio 27.00 H Glucose 86 Calculated Osmolality 278.3 Calcium 7.9 L Phosphorus 3.4 Magnesium Total Bilirubin AST ALT Alkaline Phosphatase Total Creatine Kinase CK-MB (CK-2) Troponin I Total Protein Albumin 2.5 L Globulin Albumin/Globulin Ratio Free T4 TSH 3rd Generation Urine Color Urine Appearance Urine pH Ur Specific Henriette Urine Protein Urine Glucose (UA) Urine Ketones Urine Blood Urine Nitrate Urine Bilirubin Urine Urobilinogen Urine Leukocytes Urine RBC Urine WBC Ur Squamous Epith Cells Hyaline Casts Urine Mucus Ur Culture Indicated?
--- NOTE | 2016-07-24 07:55 | History and Physical Update ---
Sedation H&P Update - History and Physical H&P was reviewed, the patient examined and there: are no changes in the patients condition since last H&P was completed. - Dictation Physical: refer to H&P completed by admitting physician - Physical Exam Mental Status: alert and oriented Heart: regular rate and rhythm Lung: clear to auscultation Abdomen: within normal limits Vitals: within normal limits - Sedation Plan for Sedation: moderate Patient Consent: Procedure disscussed with patient and patinet has consented., Risks and benefits were discussed with patient,including infection,, bleeding, injury to surrounding structures, seizure, temporary nerve, Patient understands and accepts potential risks/benefits and agrees to, proceed. ASA Class: II Airway Assessment: Class II: Soft palate, uvula, fauces visible
--- NOTE | 2016-07-24 09:33 | ECHO Report ---
Francy Ryan Exam Date: 07/24/2016 08:16 Referring Physician: Technologist: Frieda Zamora LRCP Age: 81 Ht (in): 65 Wt (lb): 111 Gender: F Exam Location: [facility] Echo Indications: chest pain, afib, HTN, palp BP: 130 / 62 HR: 100 Rhythm: Atrial fibrillation Technical Quality: Good IMPRESSIONS EF 60 %. Normal right ventricular size. The right atrium is mildly enlarged. Moderately increased left atrial size. Mildly thickened mitral valve. Trace mitral valve regurgitation. Aortic valve sclerosis. No aortic valve regurgitation. Mild tricuspid valve regurgitation. LDH46-97 mmHG. Pulmonic valve not well visualized. No pericardial effusion. Normal size aortic root and proximal ascending aorta. MEASUREMENTS (Male / Female) Normal Values 2D ECHO LV Diastolic Diameter PLAX 2.3 cm 4.2 - 5.9 / 3.9 - 5.3 cm LV Systolic Diameter PLAX 1.8 cm LV Fractional Shortening PLAX 22.6 % IVS Diastolic Thickness 1.6 cm 0.6 - 1.0 / 0.6 - 0.9 cm LVPW Diastolic Thickness 1.2 cm 0.6 - 1.0 / 0.6 - 0.9 cm RV Internal Dim ED PLAX 2.0 cm Aortic Root Diameter 2.3 cm LA Systolic Diameter LX 3.7 cm 3.0 - 4.0 / 2.7 - 3.8 cm DOPPLER TR Peak Velocity 225.0 cm/s TR Peak Gradient 20.3 mmHg FINDINGS Left Ventricle EF 60 %. Right Ventricle Normal right ventricular size. Right Atrium The right atrium is mildly enlarged. Left Atrium Moderately increased left atrial size. Mitral Valve Mildly thickened mitral valve. Trace mitral valve regurgitation. Aortic Valve Aortic valve sclerosis. No aortic valve regurgitation. Tricuspid Valve Morphologically normal tricuspid valve. Mild tricuspid valve regurgitation. WGE53-10 mmHG. Pulmonic Valve Pulmonic valve not well visualized. Pericardium No pericardial effusion. Aorta Normal size aortic root and proximal ascending aorta. Scott Brand (Electronically Signed) Final Date: 24 July 2016 09:32
[2016-07-24] MEDS ORDERED: MIDAZOLAM 10 MG/2 ML VIAL ONE (09:52)
--- NOTE | 2016-07-24 09:57 | EKG Report ---
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
[2016-07-24 10:11] LABS: Apearance,Urine CLOUDY (Clear); Bilirubin,Urine Negative (Negative); Blood, Urine Large mg/dL (Negative); Glucose,Urine (UA) Negative (Negative); Hyaline Casts,Urine 20 /LPF (0-3); Ketones,Urine 20 mg/dL (Negative); Mucus,Urine Many /LPF (Occasional); Nitrite,Urine Negative (Negative); Protein,Urine 30 MG/DL; RBC,Urine 18 /HPF (0-4); Urine Color Amber (Yellow); Urine Specific Gravity 1.018 (1.001-1.035); Urine Urobilinogen < 2.0 EU/DL (0.2-1.0); WBC,Urine 4 /HPF (0-6)
[2016-07-24] MEDS ORDERED: FLUMAZENIL 0.5 MG/5 ML VIAL IV ONE (10:28)
[2016-07-24] MEDS ORDERED: AMIODARONE INJ 150 MG in DEXTROSE 5% 100 ML IV ONE (10:35)
[2016-07-24] MEDS ORDERED: AMIODARONE 150 MG/3 ML VIAL ONE (10:36)
[2016-07-24] MEDS ORDERED: PHENYLEPHRINE DRIP 40 MG/250 ML PREMIX IV ONE (10:43)
--- NOTE | 2016-07-24 10:45 | Event Note ---
Event note. Synchronized cardioversion procedure note Preop diagnosis new onset rapid atrial fib with pauses Postop diagnosis same The patient has a small bowel obstruction due to adhesions. Today she developed rapid atrial fibrillation. While on Cardizem she developed prolonged pauses greater than 6 seconds. Echo shows ejection fraction of 60% with moderate dilated left atrium but no thrombus. I discussed criteria with the patient and with her sons Ilya and Jules and daughter Olga. All questions answered. Consent form was signed. The patient received a total dose of 3 mg IV Versed to achieve and maintain adequate anesthesia throughout the procedure. Continuous O2 sat monitoring was performed. Apical and sternal patches were placed. Synchronized cardioversion was attempted at 200 and 275 J. She had brief P-wave activity but would not hold. Plan IV amiodarone Watch rhythm closely Discussed with family
--- NOTE | 2016-07-24 11:24 | XRay Report ---
Portable chest Date: 07/24/2016 Clinical history: Shortness of breath Comparison: 07/23/2016 Technique: Portable AP sitting chest Findings: The heart is slightly larger in size. Nasogastric tube seen entering the stomach. Artifactual densities limit the exam. Progressive parenchymal findings at the right lung base with small right pleural effusion. Underlying chronic scarring. Stable mediastinum and osseous structures. Postoperative findings in the upper abdomen. Impression: Limited exam. Progressive atelectasis/infiltration/edema at the right lung base with small right pleural effusion. Underlying chronic scarring with nasogastric tube in stomach. PROCEDURE INTERPRETED AT [facility] DEPARTMENT OF RADIOLOGY Final Report Signed by: Dr. Rosette Perdomo
--- NOTE | 2016-07-24 12:47 | EKG Report ---
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
[2016-07-24] MEDS: BUDESONIDE/FORMOTEROL 80-4.5 INHALER 6.9 GM INH SCH ×2 (13:05→21:03)
[2016-07-24] MEDS: MORPHINE 2 MG/1 ML SYRINGE IV PRN ×2 (13:57→21:08)
[2016-07-24] MEDS ORDERED: MIDAZOLAM 2 MG/2 ML VIAL IV ONE ×2 (14:52→14:53)
[2016-07-24] MEDS ORDERED: FLUMAZENIL 1 MG/10 ML VIAL IV ONE (14:52)
--- NOTE | 2016-07-24 14:56 | Hospitalist Progress Note ---
Assessment and Plan - Time spent with patient Time spent with patient: Less than 30 minutes (1) Atrial fibrillation with RVR Status: Acute Assessment and plan: (2) Atrial fibrillation with RVR Assessment and plan: ASs per cardiology continue Amiodarone drip. Telemetry. Cardiac markers. ECHO. Replace lytes as needed. Check TSH. AC once able to from surgical standpoint (3) Small bowel obstruction Status: Acute Assessment and plan: Management per primary service surgical management deferred for now Current Visit: Yes (4) Hypertension Status: Acute Assessment and plan: Blood pressure was actually low likely due to tachycardia and decreased cardiac output. Will monitor closely. Gentle IVF. Current Visit: Yes Current Visit: No (2) Heart palpitations Status: Acute Current Visit: No (3) Abdominal pain Status: Acute Current Visit: Yes (4) Small bowel obstruction Status: Acute Current Visit: Yes Hospitalist: Subjective Interval history: pt was in and out of afib RVR and significant pauses got shocks x2 unsuccessful had to have sedation reversed on amio converted on her own to NSR in the 60s given cardiac issues surgical intervention on hold at the current time pt otherwise feeling improved Exam - Constitutional Vitals: Period Temp Pulse Resp BP Sys/Watt Pulse Ox Last 24 Hr 97 F-98.8 F 55-145 12-27 59-147/47-96 84-100 General appearance: normal weight, no acute distress - Head Head exam: Present: normal inspection, normocephalic - Eye Eye exam: Present: EOMI Pupils: Present: LOVELY - ENT ENT exam: Present: normal exam - Neck Neck exam: Present: normal inspection - Respiratory Respiratory exam: Present: clear to auscultation bilaterally - Cardiovascular Cardiovascular exam: Present: regular rate and rhythm. Absent: diastolic murmur , irregular rhythm, JVD - GI/Abdominal GI/Abdominal exam: Present: normal bowel sounds, guarding, hypoactive bowel sounds, tenderness, soft. Absent: ascites, distended, firm - Extremities Exam Extremities exam: Present: normal inspection, full ROM - Back Exam Back exam: Present: normal inspection. Absent: CVA tenderness (L), CVA tenderness (R) - Neurological Exam Neurological exam: Present: alert, oriented X3 - Psychiatric Psychiatric exam: Present: normal affect, normal mood - Skin Skin exam: Present: normal color, warm Results - Labs CBC & BMP: 07/24/16 04:18 07/24/16 04:18 Lab Results: I have reviewed the past 24 hour labs
[2016-07-24] MEDS: AMIODARONE INJ 450 MG in DEXTROSE 5% 241 ML IV SCH (18:13)
[2016-07-25] MEDS: CLINDAMYCIN INJ 600 MG in PREMIX 1 EACH IV SCH ×3 (00:13→17:51)
[2016-07-25] MEDS: DILTIAZEM INJ 100 MG in SODIUM CHLORIDE 0.9% 100 ML IV SCH (00:46)
[2016-07-25] MEDS: AMIODARONE INJ 450 MG in DEXTROSE 5% 241 ML IV SCH ×2 (02:00→11:35)
[2016-07-25] MEDS: SODIUM CHLORIDE 0.9% 1,000 ML IV SCH ×2 (04:36→19:15)
[2016-07-25] MEDS: MORPHINE 2 MG/1 ML SYRINGE IV PRN ×4 (04:43→21:18)
[2016-07-25 05:25] LABS: Basophils # 0.1 10*3/uL (0.0-0.2); Basophils % 0.9 % (0.0-0.8); Eosinophils # 0.1 10*3/uL (0.0-0.87); Eosinophils % 0.6 % (0.00-10.9); Hematocrit 35.7 VOL% (35.7-47.0); Hemoglobin 11.5 GM/DL (12.0-16.0); Immature Granulocytes % 0.4 %; Immature Granulocytes Absolute 0.05 #; Lymphocytes # 4.7 10*3/uL (1.4-4.0); Lymphocytes % 34.7 % (21.3-54.2); Mean Corpuscular HGB Conc 32.2 GM/DL (32-36); Mean Corpuscular Hemoglobin 32 PG (27-34); Mean Corpuscular Volume 97.8 FL (87-102); Mean Platelet Volume 11.4 FL (9.6-12.0); Monocytes % 7.3 % (1.7-12.7); Neutrophils # 7.7 10*3/uL (1.4-7.4); Neutrophils % 56.1 % (38.7-73.9); Platelet Count 155 T/CUMM (130-400); Red Blood Count 3.65 MC/CUMM (3.8-5.5); Red Cell Distribution Width 13.1 % (9.3-17.3); White Blood Count 13.6 T/CUMM (4-12)
[2016-07-25 05:47] LABS: Calcium 7.6 MG/DL (8.5-10.1); Osmolality,Calculated 287.7 MOS/KG (273-304); Potassium 3.8 MMOL/L (3.5-5.1)
[2016-07-25] MEDS: LEVALBUTEROL 1.25 MG/3 ML NEB RESP TX SCH ×2 (07:30→14:26)
--- NOTE | 2016-07-25 07:48 | General Surgery Progress Note ---
Assessment and Plan - Time spent with patient Time spent with patient: Less than 30 minutes (1) Small bowel obstruction Status: Acute Assessment and plan: She has a small bowel obstruction likely secondary to intra-abdominal adhesions. I reviewed her CT scan and she has a patent superior mesenteric artery and I think it would be unlikely that she has ischemic bowel. She has nothing that shows acidosis or signs of ischemia on her lab work. Her white blood cell count is a little bit elevated. Patient states she recently has had a urinary tract infection recently had an upper respiratory infection. We will check follow-up lab work. I'm going to treat her with IV fluids and nasogastric suction for now. I explained to her that if her small bowel obstruction does not resolve with this conservative treatment and we may need to look at surgery. 07/24: She denies any abdominal pain this morning. Her abdomen seems less distended and is not tender at all. During the night she went into atrial fibrillation with a rapid ventricular response is a question whether or not there was a cardiac event. She is moved to the CCU in her right has been managed by Hospital medicine and cardiology has been consulted. There is also question of developing pneumonia in her right lower lobe. She is on IV antibiotics. His may be the source of her elevated white blood cell count. It appears that her small bowel obstruction is responding to conservative treatment. Certainly we would like to avoid surgery if possible in this patient with multiple other medical issues. 07/25: She feels better from an abdominal standpoint. She is not having chest pain or shortness of breath. She denies any abdominal pain and is had some flatus. She still has some nasogastric output. I will keep her nasogastric tube today. I am okay with her going to the floor if it is okay with cardiology. I will leave it up to them since she did have a cardioversion yesterday. Hopefully we can avoid surgical intervention on her abdomen appears to be improving. Current Visit: Yes (2) Leukocytosis Status: Acute Assessment and plan: It is unclear if this is related to her intra-abdominal process. I'm treating her with IV antibiotics and IV fluids. Current Visit: Yes Subjective Patient reports: Present: feels better, flatus, no bowel movement. Absent: still having pain, nausea, vomiting Exam - Constitutional Vitals: Period Temp Pulse Resp BP Sys/Watt Pulse Ox Last 24 Hr 97 F-97.6 F 59-138 12-27 86-147/35-96 84-100 General appearance: no acute distress - Head Head exam: Present: normocephalic - Eye Eye exam: Absent: scleral icterus - Respiratory Respiratory exam: Absent: accessory muscle use - GI/Abdominal GI/Abdominal exam: Present: soft. Absent: distended, tenderness - Extremities Exam Extremities exam: Absent: edema - Neurological Exam Neurological exam: Present: alert, oriented X3 Speech: Present: normal Results - Labs CBC & BMP: 07/25/16 04:28 07/25/16 04:28 Lab Results: I have reviewed the past 24 hour labs
--- NOTE | 2016-07-25 08:29 | Hospitalist Progress Note ---
Assessment and Plan (1) Atrial fibrillation with RVR Status: Acute Assessment and plan: Impression: 1. Atrial fibrillation with rapid ventricular rate 2. Headache, possibly migraine 3. Small bowel obstruction Plan: We will continue current care for the atrial fibrillation. She remains on an amiodarone infusion while the NG tube is in place. With regard to headache, we are somewhat limited and therapeutic options due to the NG tube being in place. We will try some Reglan and see if this is helpful This note was completed using [employer] voice recognition software. There may be liquor inspector errors as a result. Current Visit: No Hospitalist: Subjective Interval history: Follow-up atrial fibrillation and small bowel obstruction. The patient remains in sinus mechanism on the monitor. Her only complaint is a left-sided headache. She says that she had migraines many years ago, but has not really been bothered with them lately. She describes a dull left-sided headache with nausea but denies photophobia or throbbing. She reports positive bowel sounds and flatus, but has not passed any stool. Exam - Constitutional Vitals: Period Temp Pulse Resp BP Sys/Watt Pulse Ox Last 24 Hr 97 F-97.6 F 59-138 12-27 86-147/35-96 84-100 Heart is regular with a 2/6 systolic murmur. Chest is clear. Abdomen has positive bowel sounds with no significant mass or tenderness. Results - Labs CBC & BMP: 07/25/16 04:28 07/25/16 04:28 Lab Results: I have reviewed the past 24 hour labs
--- NOTE | 2016-07-25 08:31 | Physician Query Form ---
CLICK EDIT DOCUMENT TO SELECT QUERY ANSWER --> OK --> SIGN Deborah Agustin RN, CCDS Certified Clinical Resolution Manager W) [phone] (f) [phone] [email or web address] PROVIDERS: Make your selection(s) from the choices in EACH section by typing an "x" and enter comments in the comment section. Please use your independent medical judgment in providing your response. This request does not imply that any particular answer is desired or expected. CLINICAL INDICATORS: (Providers should not edit this section) The below diagnosis was documented in the record, but is not consistently noted in subsequent documentation. The medical record indicates that the patient was admitted with a small bowel obstruction, WBC 19.8, "also question of developing pneumonia in her right lower lobe" and the patient is on Antibiotics. Chest X-ray on the : "Progressive Atelectasis/ infiltrate at right lung base". Diagnosis: PNEUMONIA Please clarify the following: ( ) The above diagnosis was monitored, evaluated, and/or treated and is a confirmed diagnosis ( X) The above diagnosis was ruled out ( ) The above diagnosis is still a likely, suspected, probable diagnosis ( ) Other, please specify: ( ) Clinically unable to determine COMMENTS: Use of terms such as suspected, likely, or probable (associated with a specific diagnosis that is being evaluated, monitored, or treated as if it exists) are acceptable and can be restated in the discharge summary if not ruled out. MTDD
[2016-07-25] MEDS ORDERED: METOCLOPRAMIDE 10 MG/2 ML VIAL IV ONE (08:32)
[2016-07-25] MEDS ORDERED: METOPROLOL TARTRATE 5 MG/5 ML VIAL IV ONE (10:30)
--- NOTE | 2016-07-25 10:52 | Cardiology Progress Note ---
<Arleth Romero E - Last Filed: 07/25/16 10:46> Assessment and Plan - Time spent with patient Time spent with patient: Less than 30 minutes (1) Atrial fibrillation with RVR Status: Acute Assessment and plan: Currently on IV amiodarone. Has had recurrent paroxysmal atrial fibrillation since admission. She is currently NPO due to SBO. We gave her a one time dose of IV Lopressor this morning after she went back into AF RVR and this has helped her HR some. We will add this scheduled and monitor closesly. Current Visit: No (2) Paroxysmal atrial fibrillation Status: Chronic Assessment and plan: She also has a history of SVT. Has not previously been on chronic anticoagulation. Given her recent events of PAF, will further discuss with Dr. Serrano to determine if patient is a candidate for long-term anticoagulation. Current Visit: Yes (3) Small bowel obstruction Status: Acute Assessment and plan: Currently being treated conservatively with IV fluids and nasogastric suctioning. General surgery is following. Current Visit: Yes (4) COPD (chronic obstructive pulmonary disease) Status: Chronic Assessment and plan: Breathing comfortably on O2 via NBP. Current Visit: Yes (5) Hypertension Status: Chronic Assessment and plan: Currently well controlled. All PO medications are currently on hold. Will continue to monitor and treat accordingly. Current Visit: Yes (6) Leukocytosis Status: Acute Assessment and plan: Currently being followed by hospital medicine and general surgery. She is being treated with IVF and IV antibiotics. It is unclear if this is related to her intra-abdominal process. Blood and urine cultures have been negative. WBC is down to 13.6 from 16.9 today. Current Visit: Yes (7) Former tobacco use Status: Chronic Assessment and plan: Quit in 2013. Current Visit: Yes Cardiology - PN: Subj Interval history: TURBINE ROOM ATTENDANT: DR. HDZ - would like to establish care with Dr. Brand Ms. Ryan is an 81-year-old female who is admitted on 07/23/2016 with a small bowel obstruction likely secondary to intra-abdominal adhesions. She is being treated conservatively with IV fluids and low intermittent nasogastric suction for now. She has a history of paroxysmal atrial fibrillation and on the night of admission she went into atrial fibrillation with rapid ventricular response. She was placed on IV Cardizem and was noted to have long pauses of up to 6 seconds. Synchronized cardioversion was attempted at 200 and 275J yesterday but was unsuccessful. She was subsequently placed on an amiodarone infusion and subsequently converted to normal sinus rhythm in the 60s. Echocardiogram shows ejection fraction of 60% with moderate dilated left atrium but no thrombus. This morning she had been in normal sinus rhythm with rates in the 60s when she had coughing spell and went back into atrial fibrillation with increased ventricular response. She has had rates in the 130s-140s. She remains n.p.o. with an NG tube to low intermittent wall suction. We have given her a one-time dose of 5 mg IV Lopressor and this seems to be helping her heart rate a little bit. We may need to continue this scheduled until she is able to tolerate p.o. medications. I discussed this plan with the patient and her family and they voiced understanding. She had a cardiac catheterization done in 2012 that did not reveal any significant disease. She had a small nondominant right with possibly a 40% lesion. Exam (Progress Note) - Constitutional Vitals: Period Temp Pulse Resp BP Sys/Watt Pulse Ox Last 24 Hr 96.9 F-97.6 F 59-74 12-25 86-160/35-91 96-100 Exam: General: Present: Appears Well, No Apparent Distress. Pleasant and cooperative. Appears comfortable. HEENT: Present: PERRL, Normocephaly, atraumatic. Mucus Membranes Moist. No jaundice noted. Conjunctiva moist and clear, sclerae anicteric. NG tube in place , connected to LIWS. Neck: Present: Supple Neck, Midline Trachea, No Masses, No Bruit, No tenderness Cardiac: Present: Irregular Rate and Rhythm, No Murmur Lungs: Present: Clear to auscultation bilaterally, diminished breath sounds to bilateral bases. Neuro: Present: Awake, alert, and oriented x3. Moves all extremities well without hemiparesis or paralysis. Grossly Intact. Absent: Resting Tremor, Essential Tremor Abdomen: Present: Soft, Active Bowel Sounds, No Masses, Non-Tender, nondistended. No abdominal bruit or thrill noted. Skin: Present: Clear. Absent: Rash, No skin breakdown. Back: Normal inspection, no vertebral tenderness. Musculoskeletal: Present: No Fluid Collection, No Pain, Normal Range of Motion Extremities: Present: Normal Gait, No Clubbing, No Cyanosis, Upper Extr. Pulses 2+, Lower Extr. Pulses diminished, No edema. Capillary refill less than 3 seconds. Result/EKG - Labs CBC & BMP: 07/25/16 04:28 07/25/16 04:28 Lab Results: I have reviewed the past 24 hour labs Labs: Laboratory Results - last 24 hr 07/25/16 07/25/16 04:28 04:28 WBC 13.6 H RBC 3.65 L Hgb 11.5 L Hct 35.7 MCV 97.8 MCH 32 MCHC 32.2 RDW 13.1 Plt Count 155 MPV 11.4 Neut % (Auto) 56.1 Lymph % (Auto) 34.7 [place] % (Auto) 7.3 Eos % (Auto) 0.6 Baso % (Auto) 0.9 H Neut # (Auto) 7.7 H Lymph # (Auto) 4.7 H [place] # (Auto) 1.0 H Eos # (Auto) 0.1 Baso # (Auto) 0.1 Immature Gran % 0.4 Nucleated RBC % 0.0 Immature Gran # 0.05 Nucleated RBCs # 0.00 Sodium 145 Potassium 3.8 Chloride 109 H Carbon Dioxide 23 Anion Gap 16.8 H BUN 14 Creatinine 0.30 L GFR Calculation 93 BUN/Creatinine Ratio 46.00 H Glucose 85 Calculated Osmolality 287.7 Calcium 7.6 L Magnesium 2.0 - EKG EKG results: interpreted by me EKG shows: atrial fibrillation <Ruben Serrano - Last Filed: 07/25/16 11:30> Cardiology - PN: Subj Interval history: Patient's chart reviewed and the patient interviewed and examined. Discussed case with Shane Romero RODBUSTER. Patient bowel obstruction and with recurrent atrial fibrillation. She converted yesterday and IV amiodarone to sinus rhythm but this morning had a coughing event and went back into atrial fibrillation. She fell on cardioversion yesterday. Her heart rates are all facet this time but is nothing by mouth. Her echocardiogram on review of report reveals ejection fraction 60% with normal left ventricular size and right atrium mildly dilated and moderate dilation of the left atrium. Nose isn't valve abnormalities noted. Her blood pressures are stable in the biggest issue now is her rate management. She may tolerate IV metoprolol which. She is given one dose previously and now has ordered when necessary. We will continue to monitor her rates and be cautious about causing pauses or bradycardia arrhythmia with her medications. Cardioversion may be in the future. I don't see any contraindications to her being on low dose DVT prophylaxis with Lovenox. Exam (Progress Note) - Constitutional Vitals: Period Temp Pulse Resp BP Sys/Watt Pulse Ox Last 24 Hr 96.9 F-97.6 F 59-74 12-25 86-160/35-91 96-100 Exam: At the time of my examination she was tachycardic and irregular. She was certain though in no distress. Exam is as noted. Result/EKG - Labs CBC & BMP: 07/25/16 04:28 07/25/16 04:28 Labs: Laboratory Results - last 24 hr 07/25/16 07/25/16 04:28 04:28 WBC 13.6 H RBC 3.65 L Hgb 11.5 L Hct 35.7 MCV 97.8 MCH 32 MCHC 32.2 RDW 13.1 Plt Count 155 MPV 11.4 Neut % (Auto) 56.1 Lymph % (Auto) 34.7 [place] % (Auto) 7.3 Eos % (Auto) 0.6 Baso % (Auto) 0.9 H Neut # (Auto) 7.7 H Lymph # (Auto) 4.7 H [place] # (Auto) 1.0 H Eos # (Auto) 0.1 Baso # (Auto) 0.1 Immature Gran % 0.4 Nucleated RBC % 0.0 Immature Gran # 0.05 Nucleated RBCs # 0.00 Sodium 145 Potassium 3.8 Chloride 109 H Carbon Dioxide 23 Anion Gap 16.8 H BUN 14 Creatinine 0.30 L GFR Calculation 93 BUN/Creatinine Ratio 46.00 H Glucose 85 Calculated Osmolality 287.7 Calcium 7.6 L Magnesium 2.0
[2016-07-25] MEDS ORDERED: METOPROLOL TARTRATE 5 MG/5 ML VIAL IV PRN (11:08)
[2016-07-25] MEDS: BUDESONIDE/FORMOTEROL 80-4.5 INHALER 6.9 GM INH SCH ×2 (11:33→21:21)
[2016-07-25] MEDS: ENOXAPARIN 40 MG/0.4 ML SYRINGE SUBCUT SCH (13:05)
[2016-07-25] MEDS: ONDANSETRON 4 MG/2 ML VIAL IV PRN (21:24)
[2016-07-26] MEDS: CLINDAMYCIN INJ 600 MG in PREMIX 1 EACH IV SCH ×3 (01:07→18:41)
[2016-07-26] MEDS: MORPHINE 2 MG/1 ML SYRINGE IV PRN ×4 (01:07→21:18)
[2016-07-26] MEDS: DILTIAZEM INJ 100 MG in SODIUM CHLORIDE 0.9% 100 ML IV SCH (01:08)
[2016-07-26] MEDS: LEVALBUTEROL 1.25 MG/3 ML NEB RESP TX SCH ×3 (01:24→15:58)
[2016-07-26] MEDS: ONDANSETRON 4 MG/2 ML VIAL IV PRN (03:57)
[2016-07-26] MEDS: AMIODARONE INJ 450 MG in DEXTROSE 5% 241 ML IV SCH ×2 (04:04→22:23)
[2016-07-26 04:44] LABS: Basophils # 0.1 10*3/uL (0.0-0.2); Eosinophils # 0.1 10*3/uL (0.0-0.87); Eosinophils % 0.5 % (0.00-10.9); Hematocrit 33.2 VOL% (35.7-47.0); Hemoglobin 11.2 GM/DL (12.0-16.0); Immature Granulocytes % 0.7 %; Lymphocytes # 5.6 10*3/uL (1.4-4.0); Lymphocytes % 38.3 % (21.3-54.2); Mean Corpuscular HGB Conc 33.7 GM/DL (32-36); Mean Corpuscular Hemoglobin 31 PG (27-34); Mean Corpuscular Volume 92.7 FL (87-102); Mean Platelet Volume 10.4 FL (9.6-12.0); Monocytes # 1.3 10*3/uL (0.11-0.8); Monocytes % 8.8 % (1.7-12.7); Neutrophils # 7.4 10*3/uL (1.4-7.4); Neutrophils % 50.7 % (38.7-73.9); Platelet Count 184 T/CUMM (130-400); Red Blood Count 3.58 MC/CUMM (3.8-5.5); Red Cell Distribution Width 12.8 % (9.3-17.3); White Blood Count 14.5 T/CUMM (4-12)
[2016-07-26 05:14] LABS: Calcium 7.2 MG/DL (8.5-10.1); Magnesium 1.7 MG/DL (1.8-2.4); Osmolality,Calculated 270.8 MOS/KG (273-304); Potassium 3.2 MMOL/L (3.5-5.1)
--- NOTE | 2016-07-26 07:32 | General Surgery Progress Note ---
Assessment and Plan (1) Small bowel obstruction Status: Acute Assessment and plan: She has a small bowel obstruction likely secondary to intra-abdominal adhesions. I reviewed her CT scan and she has a patent superior mesenteric artery and I think it would be unlikely that she has ischemic bowel. She has nothing that shows acidosis or signs of ischemia on her lab work. Her white blood cell count is a little bit elevated. Patient states she recently has had a urinary tract infection recently had an upper respiratory infection. We will check follow-up lab work. I'm going to treat her with IV fluids and nasogastric suction for now. I explained to her that if her small bowel obstruction does not resolve with this conservative treatment and we may need to look at surgery. 07/24: She denies any abdominal pain this morning. Her abdomen seems less distended and is not tender at all. During the night she went into atrial fibrillation with a rapid ventricular response is a question whether or not there was a cardiac event. She is moved to the CCU in her right has been managed by Hospital medicine and cardiology has been consulted. There is also question of developing pneumonia in her right lower lobe. She is on IV antibiotics. His may be the source of her elevated white blood cell count. It appears that her small bowel obstruction is responding to conservative treatment. Certainly we would like to avoid surgery if possible in this patient with multiple other medical issues. 07/25: She feels better from an abdominal standpoint. She is not having chest pain or shortness of breath. She denies any abdominal pain and is had some flatus. She still has some nasogastric output. I will keep her nasogastric tube today. I am okay with her going to the floor if it is okay with cardiology. I will leave it up to them since she did have a cardioversion yesterday. Hopefully we can avoid surgical intervention on her abdomen appears to be improving. 07/26: She has no abdominal complaints this morning. It appears that her small bowel obstruction is resolved. We will discontinue her nasogastric tube. She apparently had another episode of rapid ventricular rate yesterday. I will leave it up to the medical service as to when she is ready to be moved out of the ICU. Current Visit: Yes (2) Leukocytosis Status: Acute Assessment and plan: It is unclear if this is related to her intra-abdominal process. I'm treating her with IV antibiotics and IV fluids. Current Visit: Yes Subjective Patient reports: Present: feels better, flatus. Absent: still having pain, nausea, vomiting, shortness of breath Exam - Constitutional Vitals: Period Temp Pulse Resp BP Sys/Watt Pulse Ox Last 24 Hr 96.9 F-99.9 F 57-131 12-29 92-167/37-131 94-100 General appearance: no acute distress - Head Head exam: Present: normocephalic - Eye Eye exam: Absent: scleral icterus - ENT Mouth exam: Present: normal voice - Respiratory Respiratory exam: Absent: accessory muscle use - GI/Abdominal GI/Abdominal exam: Present: soft. Absent: distended, tenderness Results - Labs CBC & BMP: 07/26/16 04:26 07/26/16 04:26 Lab Results: I have reviewed the past 24 hour labs
--- NOTE | 2016-07-26 10:00 | Cardiology Progress Note ---
<Arleth Romero E - Last Filed: 07/26/16 09:57> Assessment and Plan - Time spent with patient Time spent with patient: Less than 30 minutes (1) Atrial fibrillation with RVR Status: Acute Assessment and plan: Currently on IV amiodarone. Has had recurrent paroxysmal atrial fibrillation since admission. We added IV metoprolol as needed yesterday and with the amiodarone, this has kept her rate controlled. Sometime this morning, she converted to normal sinus rhythm. We will attempt to reintroduce her p.o. medications and wean her from the IV amiodarone if okay with her general surgeon and medical doctor. Will further discuss with Dr. Serrano, but I believe she can be transferred to the floor with a monitored bed from a cardiology standpoint. Current Visit: No (2) Paroxysmal atrial fibrillation Status: Chronic Assessment and plan: She also has a history of SVT. Has not previously been on chronic anticoagulation. She has been started on low-dose Lovenox daily. Current Visit: Yes (3) Small bowel obstruction Status: Acute Assessment and plan: General surgery is following. Her small bowel obstruction is felt to be resolved at this point. Her NG tube has been discontinued. Current Visit: Yes (4) COPD (chronic obstructive pulmonary disease) Status: Chronic Assessment and plan: Breathing comfortably on O2 via NBP. Current Visit: Yes (5) Hypertension Status: Chronic Assessment and plan: Currently well controlled. Will continue to monitor and treat accordingly. Current Visit: Yes (6) Leukocytosis Status: Acute Assessment and plan: Currently being followed by [facility] medicine and general surgery. She is being treated with IVF and IV antibiotics. It is unclear if this is related to her intra-abdominal process. Blood and urine cultures have been negative. Current Visit: Yes (7) Former tobacco use Status: Chronic Assessment and plan: Quit in 2013. Current Visit: Yes Cardiology - PN: Subj Interval history: MANAGER EVENT: DR. HDZ - WOULD LIKE TO ESTABLISH CARE WITH DR. BARRAZA Ms. Ryan is doing well today. She has remained on IV amiodarone and did require IV metoprolol throughout the night for elevated heart rate, but has since converted to normal sinus rhythm with rates in the 60s. She has been seen by general surgery this morning and appears her small bowel obstruction has resolved. Her NG tube has been discontinued. She is tolerating a few ice chips and sips of water at this time. If it is okay with her medical doctor and general surgeon, we will resume some of her p.o. medications and try to wean her from the IV amiodarone. She denies any cardiac complaints this morning. She only reports that her stomach is gurgling and she feels hungry. Exam (Progress Note) - Constitutional Vitals: Period Temp Pulse Resp BP Sys/Watt Pulse Ox Last 24 Hr 97.5 F-99.9 F 57-131 12-29 92-167/37-131 94-100 Exam: General: Present: Appears Well, No Apparent Distress. Pleasant and cooperative. Appears comfortable. HEENT: Present: PERRL, Normocephaly, atraumatic. Mucus Membranes Moist. No jaundice noted. Conjunctiva moist and clear, sclerae anicteric. Neck: Present: Supple Neck, Midline Trachea, No Masses, No Bruit, No tenderness Cardiac: Present: Regular Rate and Rhythm, No Murmur Lungs: Present: Clear to auscultation bilaterally, diminished breath sounds to bilateral bases. Neuro: Present: Awake, alert, and oriented x3. Moves all extremities well without hemiparesis or paralysis. Grossly Intact. Absent: Resting Tremor, Essential Tremor Abdomen: Present: Soft, Active Bowel Sounds, No Masses, Non-Tender, nondistended. No abdominal bruit or thrill noted. Skin: Present: Clear. Absent: Rash, No skin breakdown. Back: Normal inspection, no vertebral tenderness. Musculoskeletal: Present: No Fluid Collection, No Pain, Normal Range of Motion Extremities: Present: Normal Gait, No Clubbing, No Cyanosis, Upper Extr. Pulses 2+, Lower Extr. Pulses diminished, No edema. Capillary refill less than 3 seconds. Result/EKG - Labs CBC & BMP: 07/26/16 04:26 07/26/16 04:26 Lab Results: I have reviewed the past 24 hour labs Labs: Laboratory Results - last 24 hr 07/26/16 07/26/16 04:26 04:26 WBC 14.5 H RBC 3.58 L Hgb 11.2 L Hct 33.2 L MCV 92.7 MCH 31 MCHC 33.7 RDW 12.8 Plt Count 184 MPV 10.4 Neut % (Auto) 50.7 Lymph % (Auto) 38.3 [place] % (Auto) 8.8 Eos % (Auto) 0.5 Baso % (Auto) 1.0 H Neut # (Auto) 7.4 Lymph # (Auto) 5.6 H [place] # (Auto) 1.3 H Eos # (Auto) 0.1 Baso # (Auto) 0.1 Immature Gran % 0.7 Nucleated RBC % 0.0 Immature Gran # 0.10 Nucleated RBCs # 0.00 Sodium 137 Potassium 3.2 L Chloride 101 Carbon Dioxide 27 Anion Gap 12.2 BUN 6 L Creatinine 0.40 L GFR Calculation 85 BUN/Creatinine Ratio 15.00 Glucose 92 Calculated Osmolality 270.8 L Calcium 7.2 L Magnesium 1.7 L - EKG EKG results: interpreted by me, sinus rhythm <Ruben Serrano - Last Filed: 07/26/16 10:51> Cardiology - PN: Subj Interval history: Patient personally interviewed and examined by me and chart reviewed. Have reviewed the case with Shane Romero BUTCHER APPRENTICE and agree with his assessment. The patient's bowel obstruction is noted has apparently resolved NG tube is out. We would like to switch her to oral amiodarone but we need to make sure she is committed to take oral fluids before stopping the amiodarone. She is in sinus rhythm at this time. She has no pacific complaints is stable. Her exam is as noted in unremarkable and stable. We'll continue present therapy. I think it is okay for the patient to go to a monitored bed but while she is on IV amiodarone will require telemetry bed. Exam (Progress Note) - Constitutional Vitals: Period Temp Pulse Resp BP Sys/Watt Pulse Ox Last 24 Hr 97.5 F-99.9 F 57-131 12-29 92-167/37-131 94-100 Result/EKG - Labs CBC & BMP: 07/26/16 04:26 07/26/16 04:26 Labs: Laboratory Results - last 24 hr 07/26/16 07/26/16 04:26 04:26 WBC 14.5 H RBC 3.58 L Hgb 11.2 L Hct 33.2 L MCV 92.7 MCH 31 MCHC 33.7 RDW 12.8 Plt Count 184 MPV 10.4 Neut % (Auto) 50.7 Lymph % (Auto) 38.3 [place] % (Auto) 8.8 Eos % (Auto) 0.5 Baso % (Auto) 1.0 H Neut # (Auto) 7.4 Lymph # (Auto) 5.6 H [place] # (Auto) 1.3 H Eos # (Auto) 0.1 Baso # (Auto) 0.1 Immature Gran % 0.7 Nucleated RBC % 0.0 Immature Gran # 0.10 Nucleated RBCs # 0.00 Sodium 137 Potassium 3.2 L Chloride 101 Carbon Dioxide 27 Anion Gap 12.2 BUN 6 L Creatinine 0.40 L GFR Calculation 85 BUN/Creatinine Ratio 15.00 Glucose 92 Calculated Osmolality 270.8 L Calcium 7.2 L Magnesium 1.7 L
[2016-07-26] MEDS: BUDESONIDE/FORMOTEROL 80-4.5 INHALER 6.9 GM INH SCH ×2 (11:29→20:42)
--- NOTE | 2016-07-26 12:09 | Hospitalist Progress Note ---
Assessment and Plan (1) Atrial fibrillation with RVR Status: Acute Assessment and plan: Impression: 1. Atrial fibrillation with rapid ventricular rate 2. Headache, possibly migraine 3. Small bowel obstruction Plan: She has improved. We will transfer to the floor. Will place on monitored bed in order to follow rhythm. This note was completed using [employer] voice recognition software. There may be real estate operations manager errors as a result. Current Visit: No Hospitalist: Subjective Interval history: Follow-up atrial fibrillation, headache, and small bowel obstruction. The patient continues to do well. Her NG tube has been removed. She offers no new complaints. She would like to move out of the ICU. This has been cleared by cardiology and the primary service. Exam - Constitutional Vitals: Period Temp Pulse Resp BP Sys/Watt Pulse Ox Last 24 Hr 97.5 F-99.9 F 57-131 12-29 92-167/37-131 94-100 Heart is regular with no murmur or gallop. Lungs are clear with no rales or wheezes. Abdomen is soft. Bowel sounds are present. Results - Labs CBC & BMP: 07/26/16 04:26 07/26/16 04:26 Lab Results: I have reviewed the past 24 hour labs
[2016-07-26] MEDS: PANTOPRAZOLE 40 MG TABLET PO SCH (16:14)
[2016-07-26] MEDS: CARVEDILOL 12.5 MG TABLET PO SCH ×2 (16:14→20:43)
[2016-07-26] MEDS: ENOXAPARIN 40 MG/0.4 ML SYRINGE SUBCUT SCH (16:22)
[2016-07-26] MEDS: POTASSIUM CHLORIDE RIDER 10 MEQ in PREMIX 1 EACH IV PRN (17:42)
[2016-07-26] MEDS: SODIUM CHLORIDE 0.9% 1,000 ML IV SCH (21:10)
[2016-07-27] MEDS: LEVALBUTEROL 1.25 MG/3 ML NEB RESP TX SCH ×4 (00:31→22:30)
[2016-07-27] MEDS: CLINDAMYCIN INJ 600 MG in PREMIX 1 EACH IV SCH ×3 (00:57→17:25)
[2016-07-27] MEDS: MORPHINE 2 MG/1 ML SYRINGE IV PRN ×4 (01:40→22:54)
[2016-07-27] MEDS: ONDANSETRON 4 MG/2 ML VIAL IV PRN ×3 (01:40→18:26)
[2016-07-27 04:50] LABS: Basophils # 0.1 10*3/uL (0.0-0.2); Basophils % 0.8 % (0.0-0.8); Eosinophils % 0.4 % (0.00-10.9); Hematocrit 31.8 VOL% (35.7-47.0); Hemoglobin 10.9 GM/DL (12.0-16.0); Immature Granulocytes Absolute 0.11 #; Lymphocytes # 3.5 10*3/uL (1.4-4.0); Lymphocytes % 32.1 % (21.3-54.2); Mean Corpuscular HGB Conc 34.3 GM/DL (32-36); Mean Corpuscular Hemoglobin 32 PG (27-34); Mean Corpuscular Volume 93.8 FL (87-102); Mean Platelet Volume 11.1 FL (9.6-12.0); Monocytes # 0.9 10*3/uL (0.11-0.8); Monocytes % 8.7 % (1.7-12.7); Neutrophils # 6.1 10*3/uL (1.4-7.4); Platelet Count 186 T/CUMM (130-400); Red Blood Count 3.39 MC/CUMM (3.8-5.5); Red Cell Distribution Width 12.5 % (9.3-17.3); White Blood Count 10.8 T/CUMM (4-12)
[2016-07-27 05:17] LABS: Calcium 7.6 MG/DL (8.5-10.1); Osmolality,Calculated 274.5 MOS/KG (273-304); Potassium 3.2 MMOL/L (3.5-5.1)
[2016-07-27] MEDS: POTASSIUM CHLORIDE RIDER 10 MEQ in PREMIX 1 EACH IV PRN ×4 (06:05→10:07)
--- NOTE | 2016-07-27 08:06 | General Surgery Progress Note ---
Assessment and Plan (1) Small bowel obstruction Status: Acute Assessment and plan: She has a small bowel obstruction likely secondary to intra-abdominal adhesions. I reviewed her CT scan and she has a patent superior mesenteric artery and I think it would be unlikely that she has ischemic bowel. She has nothing that shows acidosis or signs of ischemia on her lab work. Her white blood cell count is a little bit elevated. Patient states she recently has had a urinary tract infection recently had an upper respiratory infection. We will check follow-up lab work. I'm going to treat her with IV fluids and nasogastric suction for now. I explained to her that if her small bowel obstruction does not resolve with this conservative treatment and we may need to look at surgery. 07/24: She denies any abdominal pain this morning. Her abdomen seems less distended and is not tender at all. During the night she went into atrial fibrillation with a rapid ventricular response is a question whether or not there was a cardiac event. She is moved to the CCU in her right has been managed by Hospital medicine and cardiology has been consulted. There is also question of developing pneumonia in her right lower lobe. She is on IV antibiotics. His may be the source of her elevated white blood cell count. It appears that her small bowel obstruction is responding to conservative treatment. Certainly we would like to avoid surgery if possible in this patient with multiple other medical issues. 07/25: She feels better from an abdominal standpoint. She is not having chest pain or shortness of breath. She denies any abdominal pain and is had some flatus. She still has some nasogastric output. I will keep her nasogastric tube today. I am okay with her going to the floor if it is okay with cardiology. I will leave it up to them since she did have a cardioversion yesterday. Hopefully we can avoid surgical intervention on her abdomen appears to be improving. 07/26: She has no abdominal complaints this morning. It appears that her small bowel obstruction is resolved. We will discontinue her nasogastric tube. She apparently had another episode of rapid ventricular rate yesterday. I will leave it up to the medical service as to when she is ready to be moved out of the ICU. 07/27: She has no abdominal complaints this morning and feels like her abdomen is back to its baseline. She is had sips of liquids which gone okay and she is passing some flatus. Appears that her small bowel obstructions resolved. We' ll put her on a soft diet today. She understands that should if she shows further signs of bowel obstruction that she will probably need operative treatment but I think that her bowel obstruction has probably resolved with conservative treatment. Current Visit: Yes (2) Leukocytosis Status: Acute Assessment and plan: It is unclear if this is related to her intra-abdominal process. I'm treating her with IV antibiotics and IV fluids. Current Visit: Yes Subjective Patient reports: Present: feels better, flatus, no bowel movement. Absent: still having pain, nausea Exam - Constitutional Vitals: Period Temp Pulse Resp BP Sys/Watt Pulse Ox Last 24 Hr 97.8 F-99.4 F 59-71 12-24 99-152/43-77 91-100 General appearance: no acute distress - Head Head exam: Present: normocephalic - Eye Eye exam: Absent: scleral icterus - ENT Mouth exam: Present: normal voice - Respiratory Respiratory exam: Absent: accessory muscle use - GI/Abdominal GI/Abdominal exam: Present: soft. Absent: distended, tenderness, rebound Results - Labs CBC & BMP: 07/27/16 03:47 07/27/16 03:47 Lab Results: I have reviewed the past 24 hour labs
[2016-07-27] MEDS: DILTIAZEM INJ 100 MG in SODIUM CHLORIDE 0.9% 100 ML IV SCH (08:14)
[2016-07-27] MEDS: PANTOPRAZOLE 40 MG TABLET PO SCH (09:52)
[2016-07-27] MEDS: CARVEDILOL 12.5 MG TABLET PO SCH ×2 (09:52→23:02)
[2016-07-27] MEDS: BUDESONIDE/FORMOTEROL 80-4.5 INHALER 6.9 GM INH SCH ×2 (09:59→23:03)
[2016-07-27] MEDS: SODIUM CHLORIDE 0.9% 1,000 ML IV SCH ×2 (10:31→23:03)
[2016-07-27] MEDS: ENOXAPARIN 40 MG/0.4 ML SYRINGE SUBCUT SCH (11:54)
--- NOTE | 2016-07-27 12:13 | Hospitalist Progress Note ---
Assessment and Plan - Time spent with patient Time spent with patient: Greater than 30 minutes (1) Small bowel obstruction Status: Acute Assessment and plan: Continue current diet plan. Monitor closely. Continue IV antibiotics. Current Visit: Yes (2) Paroxysmal atrial fibrillation Status: Chronic Assessment and plan: Continue current treatment plan. Afib but rate controlled now. Cardiology f/u. Current Visit: Yes (3) Hypokalemia Status: Acute Assessment and plan: Replenish K. BMP in am. Current Visit: No (4) Hypertension Status: Chronic Assessment and plan: Continue current medical treatment regimen. Current Visit: Yes (5) COPD (chronic obstructive pulmonary disease) Status: Chronic Assessment and plan: Continue current treatment plan regimen Current Visit: Yes Hospitalist: Subjective Interval history: No overnight acute event. Afib rate controlled. On IV amiodarone drip and IV metoprolol PRN. Cardiology f/u. On diet for SBO. Deny fever, chest pain, cough, dairrhea, dysuria or edema, leukocytosis improving. On IV antibiotics. Interval history: Follow-up atrial fibrillation, headache, and small bowel obstruction. The patient continues to do well. Pt is on diet per Surgery. She offers no new complaints. Afib but rate controlled and Cardiology f/u. Exam - Constitutional Vitals: Period Temp Pulse Resp BP Sys/Watt Pulse Ox Last 24 Hr 97.4 F-99.4 F 59-71 18-24 99-152/57-77 96-100 Exam: GENERAL: Lying in bed supine, AAOx3. HEENT: Pupils equally round and reactive to light, conjunctivae clear. Normal lips, teeth and gums. NECK: Supple without mass. CHEST: Normal shape, good air movement, no retractions. CV: Irregularly irregular, 2+ peripheral pulses LUNGS: Clear to auscultation; no rales, rhonchi, or wheezes. ABDOMEN: Soft, mildly distended. +BS, SKIN: No rash or edema. NEURO: No gross motor deficits noted. Results - Labs CBC & BMP: 07/27/16 03:47 07/27/16 03:47
--- NOTE | 2016-07-27 12:33 | Cardiology Progress Note ---
<Arleth Romero E - Last Filed: 07/27/16 12:28> Assessment and Plan - Time spent with patient Time spent with patient: Less than 30 minutes (1) Atrial fibrillation with RVR Status: Acute Assessment and plan: Currently on IV amiodarone. Has had recurrent paroxysmal atrial fibrillation since admission. She has also had IV metoprolol as needed for rate control. This morning she was in a normal rhythm with rates in the 60s, however since then she has had some tachycardia bradycardia with rate dropping into the 30s. After discussing with Dr. Serrano, we will plan on dual-chamber pacemaker placement tomorrow. Current Visit: No (2) Paroxysmal atrial fibrillation Status: Chronic Assessment and plan: She also has a history of SVT. Has not previously been on chronic anticoagulation. She has been started on low-dose Lovenox daily. Current Visit: Yes (3) Small bowel obstruction Status: Acute Assessment and plan: General surgery is following. Her small bowel obstruction is felt to be resolved at this point. Her NG tube has been discontinued. Current Visit: Yes (4) COPD (chronic obstructive pulmonary disease) Status: Chronic Assessment and plan: Breathing comfortably on O2 via NBP. Current Visit: Yes (5) Hypertension Status: Chronic Assessment and plan: Currently well controlled. Will continue to monitor and treat accordingly. Current Visit: Yes (6) Leukocytosis Status: Acute Assessment and plan: Currently being followed by hospital medicine and general surgery. She is being treated with IVF and IV antibiotics. It is unclear if this is related to her intra-abdominal process. Blood and urine cultures have been negative. Current Visit: Yes (7) Former tobacco use Status: Chronic Assessment and plan: Quit in 2013. Current Visit: Yes (8) Migraine headache Status: Acute Assessment and plan: Ms. Ryan reports she has had a severe headache since Monday. This is been associated with nausea and occasional vomiting. She has been receiving IV morphine and Zofran as needed. We will get a CT of her head and ask neurology for their input. Current Visit: Yes Cardiology - PN: Subj Interval history: PUPPY SITTER: DR. HDZ - WOULD LIKE TO ESTABLISH CARE WITH DR. BARRAZA Ms. Ryan was transferred to telemetry last night. She remains on IV amiodarone. We had hoped today of transitioning her to p.o. since her heart rates this morning where sinus rhythm in the 60s but upon exam, she is back in atrial fibrillation with elevated heart rate. She is also having periods of tachybradycardia with rates dropping into the 30s and 40s periodically. This severely limits however able to treat her atrial fibrillation and after discussing with Dr. Serrano, he believes she may require pacemaker placement in the near future. We will continue with IV amiodarone and current therapy for now. She has had some leukocytosis during this hospitalization and has received prophylactic treatment with IV fluids and IV antibiotics. It has been unclear if this is related to her intra-abdominal process. However blood and urine cultures have both been negative and she has shown no signs of infection. She did have a low-grade temperature of 100.1 on July 23. She has also been complaining of a severe headache since Monday. This is accompanied by nausea and occasional vomiting. She does report a history of migraines several years ago. She has been receiving Zofran IV and morphine IV as needed. We will get a CT head and neurology consult for further evaluation. Exam (Progress Note) - Constitutional Vitals: Period Temp Pulse Resp BP Sys/Watt Pulse Ox Last 24 Hr 97.4 F-99.4 F 59-71 18-21 99-152/57-77 96-100 Exam: General: Present: Appears Well, No Apparent Distress. Pleasant and cooperative. Appears comfortable. HEENT: Present: PERRL, Normocephaly, atraumatic. Mucus Membranes Moist. No jaundice noted. Conjunctiva moist and clear, sclerae anicteric. Neck: Present: Supple Neck, Midline Trachea, No Masses, No Bruit, No tenderness Cardiac: Present: Irregular rate and Rhythm, No Murmur Lungs: Present: Clear to auscultation bilaterally, diminished breath sounds to bilateral bases. Neuro: Present: Awake, alert, and oriented x3. Moves all extremities well without hemiparesis or paralysis. Grossly Intact. Absent: Resting Tremor, Essential Tremor Abdomen: Present: Soft, Active Bowel Sounds, No Masses, Non-Tender, nondistended. No abdominal bruit or thrill noted. Skin: Present: Clear. Absent: Rash, No skin breakdown. Back: Normal inspection, no vertebral tenderness. Musculoskeletal: Present: No Fluid Collection, No Pain, Normal Range of Motion Extremities: Present: Normal Gait, No Clubbing, No Cyanosis, Upper Extr. Pulses 2+, Lower Extr. Pulses diminished, No edema. Capillary refill less than 3 seconds. Result/EKG - Labs CBC & BMP: 07/27/16 03:47 07/27/16 03:47 Lab Results: I have reviewed the past 24 hour labs Labs: Laboratory Results - last 24 hr 07/27/16 07/27/16 03:47 03:47 WBC 10.8 RBC 3.39 L Hgb 10.9 L Hct 31.8 L MCV 93.8 MCH 32 MCHC 34.3 RDW 12.5 Plt Count 186 MPV 11.1 Neut % (Auto) 57.0 Lymph % (Auto) 32.1 [place] % (Auto) 8.7 Eos % (Auto) 0.4 Baso % (Auto) 0.8 Neut # (Auto) 6.1 Lymph # (Auto) 3.5 [place] # (Auto) 0.9 H Eos # (Auto) 0.0 Baso # (Auto) 0.1 Immature Gran % 1.0 Nucleated RBC % 0.0 Immature Gran # 0.11 Nucleated RBCs # 0.00 Sodium 139 Potassium 3.2 L Chloride 99 Carbon Dioxide 26 Anion Gap 17.2 H BUN 6 L Creatinine 0.20 L GFR Calculation 107 BUN/Creatinine Ratio 30.00 H Glucose 101 Calculated Osmolality 274.5 Calcium 7.6 L Magnesium 2.0 - EKG EKG results: interpreted by me EKG shows: atrial fibrillation (Tachybradycardia) <Ruben Serrano Tez - Last Filed: 07/27/16 13:06> Cardiology - PN: Subj Interval history: Patient is personally interviewed and examined and chart reviewed. Family is present at the time of my seeing the patient. I reviewed this case with Arleth Romero BARREL HEADER. I agree with the history, exam and assessment. In addition estimation the patient had been in sinus rhythm on the IV amiodarone but has just in the last couple hours come back and atrial fibrillation with increased ventricular response and to some degree variable. It is noted though she did having episodes of severe sinus bradycardia with heart rates in the 30s. She has a normal ejection fraction 60% based on echocardiogram. In reviewing her chart we see that on diltiazem and she had long pauses up to 6 seconds was limited her therapy initially. With her bradycardia and other symptomatology I suspect this patient is going to have issues with tachycardia bradycardia/sick sinus syndrome due to sinus node dysfunction. She certainly has indications for pacemaker and would benefit from from this and allow medical treatment for her dysrhythmia. She had had elevated white count on admission he may have been associated with her intra- abdominal process but there is no gross evidence of infection with her blood cultures urine cultures all being negative. White count is now normal. Certainly her elevated white count/leukocytosis could be related to acute intra- abdominal process that would be noninfectious. This is all stable at this time. I have discussed pacemaker implantation with the patient and her family. I reviewed the the indication procedure as well as how would be carried out the risk. I discussed pacemaker implantation procedure with the patient and available family. I reviewed with them the indications of the procedure as well as the basis of how the procedure itself would be carried out. I also reviewed with them the possible risks which include but not necessarily limited to surgical site bruising pain swelling or pocket hematoma that may require surgical evacuation. Discussed that the pain, swelling, bruising could be significant. Also discussed the possibility of surgical site or pocket infection that may require oral or IV antibiotics or even the possibility of surgical drainage of the pocket or even removal of the pacemaker system. Also discussed the possibility of hemothorax or pneumothorax that may require chest tube and possible blood transfusion. Also discussed the possibility of myocardial perforation that may lead to pericardial tamponade and the need for pericardiocentesis and blood transfusion. They voice understanding and agree to proceed. We will plan on carrying this out tomorrow. We may have to carry out cardioversion to time of the procedure in order to better obtain placement atrial lead. She is complaining of severe headaches. We will proceed with getting a CT of the head and asking neurology see the patient. She has a prior history that is remote of having migraine headaches. Exam (Progress Note) - Constitutional Vitals: Period Temp Pulse Resp BP Sys/Watt Pulse Ox Last 24 Hr 97.4 F-99.4 F 59-123 18-21 99-152/57-78 92-100 Result/EKG - Labs CBC & BMP: 07/27/16 03:47 07/27/16 03:47 Labs: Laboratory Results - last 24 hr 07/27/16 07/27/16 03:47 03:47 WBC 10.8 RBC 3.39 L Hgb 10.9 L Hct 31.8 L MCV 93.8 MCH 32 MCHC 34.3 RDW 12.5 Plt Count 186 MPV 11.1 Neut % (Auto) 57.0 Lymph % (Auto) 32.1 [place] % (Auto) 8.7 Eos % (Auto) 0.4 Baso % (Auto) 0.8 Neut # (Auto) 6.1 Lymph # (Auto) 3.5 [place] # (Auto) 0.9 H Eos # (Auto) 0.0 Baso # (Auto) 0.1 Immature Gran % 1.0 Nucleated RBC % 0.0 Immature Gran # 0.11 Nucleated RBCs # 0.00 Sodium 139 Potassium 3.2 L Chloride 99 Carbon Dioxide 26 Anion Gap 17.2 H BUN 6 L Creatinine 0.20 L GFR Calculation 107 BUN/Creatinine Ratio 30.00 H Glucose 101 Calculated Osmolality 274.5 Calcium 7.6 L Magnesium 2.0
[2016-07-27] MEDS ORDERED: diphenhydrAMINE CAP 25 MG CAPSULE PO ONE (12:50)
[2016-07-27] MEDS ORDERED: MAGNESIUM SULF RIDER 2 GM in PREMIX 1 EACH IV PRN (13:06)
[2016-07-27] MEDS ORDERED: POTASSIUM CHLORIDE RIDER 10 MEQ in PREMIX 1 EACH IV PRN (13:06)
--- NOTE | 2016-07-27 13:43 | CT Report ---
CT brain Indication: Headache Comparison: 14 July 2011 Technique: Axial CT imaging of the brain is performed without contrast with 3 mm increments. Findings: No evidence of hemorrhage, mass mass effect midline shift or acute infarct seen. The brain parenchyma attenuation and differentiation appears within normal limits. The ventricles and cisterns are normal in caliber. No cranial or skull base abnormality is identified. Impression: No evidence of abnormality demonstrated. This CT exam was performed using one or more the following dose reduction techniques: Automated exposure control, adjustment of the MA and/or KV according to patient size, or use of iterative reconstruction technique. PROCEDURE INTERPRETED AT [facility] DEPARTMENT OF RADIOLOGY Final Report Signed by: Dr. Kong Marina
[2016-07-27] MEDS: AMIODARONE INJ 450 MG in DEXTROSE 5% 241 ML IV SCH (15:00)
[2016-07-27] MEDS: POTASSIUM CHLORIDE 20 MEQ PACK PO SCH (23:02)
[2016-07-28] MEDS: CLINDAMYCIN INJ 600 MG in PREMIX 1 EACH IV SCH ×3 (02:17→16:45)
[2016-07-28] MEDS: DILTIAZEM INJ 100 MG in SODIUM CHLORIDE 0.9% 100 ML IV SCH (02:37)
[2016-07-28 04:04] LABS: Basophils # 0.2 10*3/uL (0.0-0.2); Basophils % 1.2 % (0.0-0.8); Eosinophils % 0.1 % (0.00-10.9); Hematocrit 35.6 VOL% (35.7-47.0); Hemoglobin 12.4 GM/DL (12.0-16.0); Immature Granulocytes Absolute 0.29 #; Lymphocytes # 5.4 10*3/uL (1.4-4.0); Lymphocytes % 38.1 % (21.3-54.2); Mean Corpuscular HGB Conc 34.8 GM/DL (32-36); Mean Corpuscular Hemoglobin 32 PG (27-34); Mean Corpuscular Volume 90.6 FL (87-102); Mean Platelet Volume 11.3 FL (9.6-12.0); Monocytes # 1.1 10*3/uL (0.11-0.8); Monocytes % 7.9 % (1.7-12.7); Neutrophils # 7.2 10*3/uL (1.4-7.4); Neutrophils % 50.7 % (38.7-73.9); Platelet Count 233 T/CUMM (130-400); Red Blood Count 3.93 MC/CUMM (3.8-5.5); Red Cell Distribution Width 12.8 % (9.3-17.3); White Blood Count 14.2 T/CUMM (4-12)
[2016-07-28 04:34] LABS: Calcium 7.7 MG/DL (8.5-10.1); Magnesium 1.8 MG/DL (1.8-2.4); Osmolality,Calculated 268.1 MOS/KG (273-304); Potassium 3.6 MMOL/L (3.5-5.1)
[2016-07-28] MEDS: ONDANSETRON 4 MG/2 ML VIAL IV PRN ×2 (05:34→21:15)
[2016-07-28] MEDS: AMIODARONE INJ 450 MG in DEXTROSE 5% 241 ML IV SCH ×2 (06:21→07:22)
[2016-07-28] MEDS: LEVALBUTEROL 1.25 MG/3 ML NEB RESP TX SCH ×3 (06:51→23:21)
[2016-07-28] MEDS ORDERED: diphenhydrAMINE CAP 25 MG CAPSULE PO ONE (07:00)
[2016-07-28] MEDS ORDERED: DIAZEPAM 5 MG TABLET PO ONE ×2 (07:00→07:10)
[2016-07-28] MEDS ORDERED: diphenhydrAMINE CAP 50 MG CAPSULE PO ONE (07:10)
--- NOTE | 2016-07-28 07:12 | EKG Report ---
Stationary ECG Study [facility] Test Date: 07/28/2016 7:11:22 AM Pat Name: SHANEL SHORT Department: Room: 264 Gender: F Movie Projectionist: BRENNEN : 1935 Requested by: Ruben Reagan Order Number: [id number] Reading MD: DEJON DONOVAN Intervals [place] Rate: 59 P: 63 [place]: 161 QRS: 39 QRSD: 86 T: 71 QT: 358 QTc: 358 Interpretive Statements SINUS RHYTHM NONSPECIFIC T-WAVE ABNORMALITY Electronically Signed On 08-01-16 11:38:39 CDT by DEJON DONOVAN [email or web address]
--- NOTE | 2016-07-28 07:14 | Cardiology Progress Note ---
Assessment and Plan (1) Sick sinus syndrome due to SA node dysfunction Status: Acute Assessment and plan: This led to the patient having a lot of atrial fibrillation and RVR as well as episodes of sinus rhythm with severe bradycardia heart rates in the lower 30s that are symptomatic. The patient needs a dual-chamber pacemaker with ATP capabilities. Again I have discussed this with the patient today as well as yesterday. We will plan on carrying this out today. Current Visit: Yes (2) Bradycardia Status: Acute Assessment and plan: This is secondary to her sick sinus syndrome and severe bradycardia symptomatic. Dual-chamber pacemaker is noted is plan for today. Current Visit: Yes (3) Paroxysmal atrial fibrillation Status: Chronic Assessment and plan: This morning her rhythm is sinus. Hopefully we will beta manages to some degree with pacemaker. Current Visit: Yes (4) Leukocytosis Status: Acute Assessment and plan: Her white count is still up and down. She has no overt evidence for infection. Her temperature is normal. Current Visit: Yes (5) Hypertension Status: Chronic Assessment and plan: This is stable. Current Visit: Yes (6) Former tobacco use Status: Chronic Current Visit: Yes (7) COPD (chronic obstructive pulmonary disease) Status: Chronic Current Visit: Yes Cardiology - PN: Subj Interval history: The patient generally has had an uneventful night. She has no complaints is morning. She's had no difficulty swallowing the pills preoperatively for her pacemaker but this is not new. This is not new and she has is recurrently. She denies any chest pain or shortness of breath. She denies any palpitations. Her rhythm this morning is sinus with normal rates. Her blood pressures are stable with systolics a little on the high side. She is afebrile. Her chemistries are stable. The patient is for dual-chamber pacemaker this morning I discussed this with the patient and the family again. Again reviewed indication procedure high be carried out in the risk. They voice understanding and agree to proceed. Exam (Progress Note) - Constitutional Vitals: Period Temp Pulse Resp BP Sys/Watt Pulse Ox Last 24 Hr 96.6 F-97.4 F 56-123 16-20 130-147/63-86 92-99 Exam: General appearance: She is a thin frail appearing female in no acute distress HEENT exam: normal inspection, atraumatic, some temporal wasting. Mucous membranes are moist. Neck exam: normal inspection no JVD. No carotid bruit. Trachea is in midline Respiratory/lungs exam: clear to auscultation bilaterally good air movement. Cardiovascular exam: regular rate and rhythm, no murmur or gallop or rub. No precordial lift. Chest wall exam: nontender GI/Abdominal exam: normal bowel sounds, soft, nontender, no abdominal bruits or pulsatile masses. Extremeties/musculoskeletal: normal inspection without edema or cyanosis. Neurological exam: alert, oriented X3, no focal deficits Psychiatric exam: normal affect, normal mood. Cognitive function is grossly normal. Skin exam: normal color, warm Result/EKG - Labs CBC & BMP: 07/28/16 03:05 07/28/16 03:05 Lab Results: I have reviewed the past 24 hour labs Labs: Laboratory Results - last 24 hr 07/28/16 07/28/16 03:05 03:05 WBC 14.2 H D RBC 3.93 Hgb 12.4 Hct 35.6 L MCV 90.6 MCH 32 MCHC 34.8 RDW 12.8 Plt Count 233 D MPV 11.3 Neut % (Auto) 50.7 Lymph % (Auto) 38.1 [place] % (Auto) 7.9 Eos % (Auto) 0.1 Baso % (Auto) 1.2 H Neut # (Auto) 7.2 Lymph # (Auto) 5.4 H [place] # (Auto) 1.1 H Eos # (Auto) 0.0 Baso # (Auto) 0.2 Immature Gran % 2.0 Nucleated RBC % 0.0 Immature Gran # 0.29 Nucleated RBCs # 0.00 Sodium 135 L Potassium 3.6 Chloride 98 Carbon Dioxide 26 Anion Gap 14.6 BUN 7 Creatinine 0.40 L GFR Calculation 89 BUN/Creatinine Ratio 17.00 Glucose 120 H Calculated Osmolality 268.1 L Calcium 7.7 L Magnesium 1.8 - Impressions Impressions: ECG this morning reveals sinus rhythm with a rate of 59. There are no acute changes. Telemetry continued to reveal sinus rhythm.
[2016-07-28] MEDS: SODIUM CHLORIDE 0.9% 1,000 ML IV SCH ×2 (07:22→15:12)
--- NOTE | 2016-07-28 07:41 | History and Physical Update ---
Sedation H&P Update - History and Physical H&P was reviewed, the patient examined and there: are no changes in the patients condition since last H&P was completed. - Dictation Physical: refer to H&P completed by admitting physician - Physical Exam Mental Status: alert and oriented Heart: regular rate and rhythm Lung: clear to auscultation Abdomen: within normal limits Vitals: within normal limits History and Physical Changes: none - Sedation Plan for Sedation: moderate Patient Consent: Procedure disscussed with patient and patinet has consented., Risks and benefits were discussed with patient,including infection,, bleeding, injury to surrounding structures, seizure, temporary nerve, Patient understands and accepts potential risks/benefits and agrees to, proceed. ASA Class: III Airway Assessment: Class II: Soft palate, uvula, fauces visible
[2016-07-28] MEDS ORDERED: LIDOCAINE 1% 20 ML VIAL ONE (07:43)
[2016-07-28] MEDS ORDERED: VANCOMYCIN 500 MG VIAL ONE ×2 (07:44→07:54)
[2016-07-28] MEDS ORDERED: MIDAZOLAM 2 MG/2 ML VIAL ONE (07:58)
[2016-07-28] MEDS ORDERED: fentaNYL 100 MCG/2 ML VIAL ONE (07:58)
--- NOTE | 2016-07-28 08:39 | Event Note ---
Patient gone for cardiac cath
[2016-07-28] MEDS ORDERED: TISSUE ADHESIVE 1 EACH APPLICATOR TOP ONE (08:46)
--- NOTE | 2016-07-28 09:15 | Operative Note ---
Date of procedure: 07/28/16 Procedure Preformed: Dual-chamber pacemaker system implantation Surgeon / Physician: Ruben Serrano Dramatic Critic: Vika Asencio Post-op diagnosis: same Findings: Successful implantation of dual-chamber pacemaker system without any complication. Specimens: none sent Estimated blood loss: minimal Condition: stable Anesthesia: local, conscious sedation Disposition: floor (clonidine 0.1 mg by mouth)
[2016-07-28] MEDS ORDERED: cloNIDine 0.1 MG TABLET ONE (09:16)
[2016-07-28] MEDS ORDERED: cloNIDine 0.1 MG TABLET PO PRN (09:18)
--- NOTE | 2016-07-28 09:38 | Cardiac Pacemaker ---
- Preoperative diagnosis Date of Procedure:: 07/28/16 Preoperative Diagnosis: Documented nonreversible symptomatic bradycardia due to , sinus node dysfunction Pre-op Diagnosis: Sick sinus syndrome due to sinus node dysfunction with severe bradycardia and that symptomatic. Post-op diagnosis: same Procedure: History: 81-year-old female who is having severe bradycardia heart rates in the 30s that is symptomatic. She also has paroxysmal atrial fibrillation with tachycardia/RVR requiring medications to manage this. The patient will be on medications that may exacerbate her bradycardia. Pre-Op diagnosis: Sick sinus syndrome due to sinus node dysfunction with symptomatic bradycardia Postop diagnosis: Same Procedures: 1. Left subclavian venogram. 2. Fluoroscopic positioning of right atrial and right ventricular leads. 3. Threshold testing of right atrial and right ventricular leads. 4. Surgical implantation dual-chamber pacemaker left chest. Contrast: Visipaque 10 ml. Medications: Preoperative Benadryl and Valium given orally. Lidocaine 1% SQ 20 ml; Versed 1 mgms total IVP; fentanyl 50 mcgs total IVP, vancomycin 1 gm IVPB, vancomycin flush. Estimated blood loss: minimal Sponge count: Correct Pacemaker equipment: 1. Pacemaker generator: [employer] Advisa MRI DR , model# A2DR01 , serial# [id number] . 2. Atrial lead: Medtronic model# 5076-52 , serial# [id number] . This is a bipolar active fixation lead. Sensed P-wave is 2.3 mv. At a pulse width of 0.5 ms the threshold is 1.4 volts, current 1.8 mA, resistance 776 ohms, slew rate 0.4 . 3. Ventricular lead: Medtronic model# 5076-58 , serial# [id number] . This is a bipolar active fixation lead. Sensed R-wave is 6.2 mv. At a pulse width of 0.5 ms the threshold is 1.0 volts, current 1.0 mA, resistance 1045 ohms, slew rate 0.9 . Discription of procedure: After informed consent the patient was given preoperative medication. They were then brought to the catheterization laboratory where their upper chest was prepped and draped in the usual sterile fashion. Patient then received IV sedation. Fluoroscopy and cinematography was used to obtain a left subclavian venogram for mapping. Local anesthesia with lidocaine below the left clavicle was obtained. Sharp dissection with scalpel was then used to cut through the skin and subcutaneous tissue to the pectoralis fascia. The Metzenbaums scissors were then used to create a superior and inferior pocket with also using blunt dissection. At this point using fluoroscopy and the subclavian venogram the subclavian vein was cannulated using needlestick and guidewires. Sheaths were then placed into the vein. Through the medial sheath the ventricular lead was advanced, through the lateral sheath the atrial lead was advanced. Under fluoroscopy the right ventricular lead was advanced into the RV outflow track and then positioned into the ventricle into a good position. It should be noted multiple attempts were made to place the lead on the intraventricular septum but either we had extremely poor sensing or extremely high impedance or thresholds. Eventually an apical position was obtained with good sensing and thresholds that remained stable. The atrial lead was then positioned and obtained good spot with good thresholds that remained stable. Sheaths were then peeled away. The leads were then sutured in position using 2- 0 Ethibond with 2 stitches on each sleeve. The pocket was irrigated with antibiotic solution. Stylettes were completely removed from the leads and final thresholds were measured that remained stable. Pacemaker generator was then connected to the ventricular and atrial lead. Each lead was identified by its serial number and then placed into the appropriate header position. Each header set screw was tightened on the appropriate lead and then each lead was tugged on demonstrating it was well seated. Counts were correct. Pacemaker generator was then placed into the pocket and sutured in position with one stitch of 2-0 Ethibond. Pacemaker pocket was then closed using 2 layers of 3-0 Vicryl and one subreticular layer of 4-0 Vicryl. Exofin was used to seal the wound. Patient, tolerated the procedure well and there were no immediate complications. Patient was returned to their room. Implants: See above Anesthesia: local, moderate conscious sedation Surgeon / Physician: Ruben Serrano Acid Extractor: other (Vika RIVERA) Estimated blood loss: minimal Specimens: none sent Condition: stable Disposition: floor - Medications / Follow-up
--- NOTE | 2016-07-28 09:42 | XRay Report ---
XR chest 1V portable Indication: Lead placement Comparison: 24 July 2016 Findings: The heart and mediastinum are stable in size and configuration. Pacemaker device is has been placed and appears in good position. The pulmonary vascularity is increased with bilateral increased interstitial lung density. No other lung infiltrates, effusions, pneumothorax or other abnormality is demonstrated. Impression: Findings suggest cardiac decompensation. Pacemaker appears within normal limits. PROCEDURE INTERPRETED AT [facility] DEPARTMENT OF RADIOLOGY Final Report Signed by: Dr. Kong Marina
[2016-07-28] MEDS: BUDESONIDE/FORMOTEROL 80-4.5 INHALER 6.9 GM INH SCH ×2 (09:52→22:00)
[2016-07-28] MEDS ORDERED: AMIODARONE 200 MG TABLET PO SCH ×2 (10:01→21:00)
--- NOTE | 2016-07-28 10:25 | Event Note ---
Patient is doing well post-pacemaker plantation. Her pacemaker site is without bruising or swelling. Chest x-ray looks good without pneumothorax or hemothorax. Leads in good position. The patient is waking up some. She certainly is arousable. The patient's family was not immediately available post procedure but were available in the room and eventually. I discussed our findings in status with them. We will continue to monitor her post procedure.
[2016-07-28] MEDS: POTASSIUM CHLORIDE 20 MEQ PACK PO SCH ×2 (10:33→21:21)
[2016-07-28] MEDS: CARVEDILOL 12.5 MG TABLET PO SCH ×2 (10:33→21:21)
[2016-07-28] MEDS: PANTOPRAZOLE 40 MG TABLET PO SCH (10:33)
[2016-07-28] MEDS: AMIODARONE 200 MG TABLET PO SCH ×2 (10:33→21:21)
--- NOTE | 2016-07-28 10:33 | General Surgery Progress Note ---
Assessment and Plan (1) Small bowel obstruction Status: Acute Assessment and plan: She has a small bowel obstruction likely secondary to intra-abdominal adhesions. I reviewed her CT scan and she has a patent superior mesenteric artery and I think it would be unlikely that she has ischemic bowel. She has nothing that shows acidosis or signs of ischemia on her lab work. Her white blood cell count is a little bit elevated. Patient states she recently has had a urinary tract infection recently had an upper respiratory infection. We will check follow-up lab work. I'm going to treat her with IV fluids and nasogastric suction for now. I explained to her that if her small bowel obstruction does not resolve with this conservative treatment and we may need to look at surgery. 07/24: She denies any abdominal pain this morning. Her abdomen seems less distended and is not tender at all. During the night she went into atrial fibrillation with a rapid ventricular response is a question whether or not there was a cardiac event. She is moved to the CCU in her right has been managed by Hospital medicine and cardiology has been consulted. There is also question of developing pneumonia in her right lower lobe. She is on IV antibiotics. His may be the source of her elevated white blood cell count. It appears that her small bowel obstruction is responding to conservative treatment. Certainly we would like to avoid surgery if possible in this patient with multiple other medical issues. 07/25: She feels better from an abdominal standpoint. She is not having chest pain or shortness of breath. She denies any abdominal pain and is had some flatus. She still has some nasogastric output. I will keep her nasogastric tube today. I am okay with her going to the floor if it is okay with cardiology. I will leave it up to them since she did have a cardioversion yesterday. Hopefully we can avoid surgical intervention on her abdomen appears to be improving. 07/26: She has no abdominal complaints this morning. It appears that her small bowel obstruction is resolved. We will discontinue her nasogastric tube. She apparently had another episode of rapid ventricular rate yesterday. I will leave it up to the medical service as to when she is ready to be moved out of the ICU. 07/27: She has no abdominal complaints this morning and feels like her abdomen is back to its baseline. She is had sips of liquids which gone okay and she is passing some flatus. Appears that her small bowel obstructions resolved. We' ll put her on a soft diet today. She understands that should if she shows further signs of bowel obstruction that she will probably need operative treatment but I think that her bowel obstruction has probably resolved with conservative treatment. 07/28: This note is a late entry. I actually saw the patient early this morning. Patient has had episodes of bradycardia and is planned for a pacemaker today. She had some nausea and vomiting yesterday. She is not having abdominal cramping or abdominal pain. We will check an abdominal x-ray. It is unclear if her small bowel obstruction is resolving. She is a very poor surgical candidate unfortunately. We may have no choice but to operate if this has not resolved. Current Visit: Yes (2) Leukocytosis Status: Acute Assessment and plan: It is unclear if this is related to her intra-abdominal process. I'm treating her with IV antibiotics and IV fluids. Current Visit: Yes Subjective Patient reports: Present: no flatus, no bowel movement, nausea, vomiting. Absent: still having pain Exam - Constitutional Vitals: Period Temp Pulse Resp BP Sys/Watt Pulse Ox Last 24 Hr 96.6 F-98 F 56-123 16-20 130-176/63-86 92-98 General appearance: no acute distress - Eye Eye exam: Absent: scleral icterus - Respiratory Respiratory exam: Absent: accessory muscle use - GI/Abdominal GI/Abdominal exam: Present: soft. Absent: distended, tenderness, rebound - Neurological Exam Neurological exam: Present: alert, oriented X3 Results - Labs CBC & BMP: 07/28/16 03:05 07/28/16 03:05 Lab Results: I have reviewed the past 24 hour labs Quality Measures - VTE Contraindication to Pharmacological VTE Prophylaxis: High Risk of Bleeding
[2016-07-28] MEDS: ENOXAPARIN 40 MG/0.4 ML SYRINGE SUBCUT SCH (11:31)
--- NOTE | 2016-07-28 12:53 | XRay Report ---
Exam: XR abdomen 1V Date: 07/28/2016 10:33 AM Indication: Small bowel obstruction Comparison: 03/24/2010 Findings: Low volume effusions are present with atelectatic change present bilaterally. Cardiac pacing device with atrial ventricular leads present. Mild cardiac enlargement. The nasogastric tube has been removed compared to previous exam. There is a curvilinear elliptical density in the left upper abdomen unchanged from prior exam with previous surgical changes in the right and left upper quadrant. Some dilated the loops of the large and small bowel are present. Moderate fecal debris in the rectal ampulla. Liver shadow is unremarkable. The spleen shadow reveal some granuloma changes the renal shadows are not well seen. Compound scoliosis is present with degenerative changes. Impression: 1. Removal nasogastric tube compared to the previous study 2. Interval placement of a pacing device with atrial ventricular leads 3. Cardiomegaly with low volume effusions and shunt vascularity suspected 4. Abdominal ileus pattern suspected with mild to moderate fecal debris early obstruction cannot be totally excluded without evidence of pneumoperitoneum PROCEDURE INTERPRETED AT [facility] DEPARTMENT OF RADIOLOGY Final Report Signed by: Dr. Trever Menard
--- NOTE | 2016-07-28 14:55 | Hospitalist Progress Note ---
Assessment and Plan - Time spent with patient Time spent with patient: Greater than 30 minutes (1) Small bowel obstruction Status: Acute Assessment and plan: Continue current diet plan. Monitor closely. Continue IV antibiotics. May need to insert NGT with suction in am if still no improvement. May have to do surgery per General Surgery though she is a poor candidate. Current Visit: Yes (2) Paroxysmal atrial fibrillation Status: Chronic Assessment and plan: Continue current treatment plan. Afib but rate controlled now. Cardiology f/u. Current Visit: Yes (3) Hypokalemia Status: Acute Assessment and plan: BMP in am. Current Visit: No (4) Hypertension Status: Chronic Assessment and plan: Continue current medical treatment regimen. Current Visit: Yes (5) COPD (chronic obstructive pulmonary disease) Status: Chronic Assessment and plan: Continue current treatment plan regimen Current Visit: Yes Hospitalist: Subjective Interval history: 07/28/16: Feeling nausea. Not passing gas yet. No bm. Had PM insertion this am. WBC 14 today. Sugery and Cardiology f/u. May need to reinsert NGT in am if still no improvement. 07/27/16:No overnight acute event. Afib rate controlled. On IV amiodarone drip and IV metoprolol PRN. Cardiology f/u. On diet for SBO. Deny fever, chest pain, cough, dairrhea, dysuria or edema, leukocytosis improving. On IV antibiotics. Interval history: Follow-up atrial fibrillation, headache, and small bowel obstruction. The patient continues to do well. Pt is on diet per Surgery. She offers no new complaints. Afib but rate controlled and Cardiology f/u. Exam - Constitutional Vitals: Period Temp Pulse Resp BP Sys/Watt Pulse Ox Last 24 Hr 96.6 F-98.4 F 56-103 16-20 124-176/55-86 92-98 Exam: GENERAL: Lying in bed supine, AAOx3. HEENT: Pupils equally round and reactive to light, conjunctivae clear. Normal lips, teeth and gums. NECK: Supple without mass. CHEST: Normal shape, good air movement, no retractions. CV: Irregularly irregular, 2+ peripheral pulses LUNGS: Clear to auscultation; no rales, rhonchi, or wheezes. ABDOMEN: Soft, mildly distended. Diminished BS, SKIN: No rash or edema. NEURO: No gross motor deficits noted. Results - Labs CBC & BMP: 07/28/16 03:05 07/28/16 03:05 Quality Measures - VTE Contraindication to Pharmacological VTE Prophylaxis: High Risk of Bleeding
[2016-07-28] MEDS ORDERED: SODIUM PHOSPHATE ENEMA 133 ML BOTTLE RECTAL ONE (14:57)
[2016-07-28] MEDS: MORPHINE 2 MG/1 ML SYRINGE IV PRN (15:59)
[2016-07-29] MEDS: CLINDAMYCIN INJ 600 MG in PREMIX 1 EACH IV SCH ×3 (01:33→17:38)
[2016-07-29] MEDS: SODIUM CHLORIDE 0.9% 1,000 ML IV SCH ×2 (01:36→17:38)
[2016-07-29] MEDS: ONDANSETRON 4 MG/2 ML VIAL IV PRN (03:13)
[2016-07-29] MEDS: MORPHINE 2 MG/1 ML SYRINGE IV PRN (04:25)
[2016-07-29 06:13] LABS: Basophils # 0.1 10*3/uL (0.0-0.2); Basophils % 0.9 % (0.0-0.8); Eosinophils # 0.1 10*3/uL (0.0-0.87); Eosinophils % 0.5 % (0.00-10.9); Hematocrit 33.1 VOL% (35.7-47.0); Hemoglobin 11.6 GM/DL (12.0-16.0); Immature Granulocytes % 3.2 %; Immature Granulocytes Absolute 0.41 #; Lymphocytes # 4.5 10*3/uL (1.4-4.0); Lymphocytes % 34.6 % (21.3-54.2); Mean Corpuscular Hemoglobin 32 PG (27-34); Mean Corpuscular Volume 91.9 FL (87-102); Mean Platelet Volume 10.2 FL (9.6-12.0); Monocytes # 0.9 10*3/uL (0.11-0.8); Monocytes % 7.3 % (1.7-12.7); Neutrophils # 6.9 10*3/uL (1.4-7.4); Neutrophils % 53.5 % (38.7-73.9); Platelet Count 195 T/CUMM (130-400); Red Cell Distribution Width 12.5 % (9.3-17.3); White Blood Count 12.9 T/CUMM (4-12)
[2016-07-29 06:36] LABS: Hypochromasia 1+; Platelet Estimate Normal
[2016-07-29 07:14] LABS: Calcium 7.4 MG/DL (8.5-10.1); Magnesium 1.5 MG/DL (1.8-2.4); Potassium 3.1 MMOL/L (3.5-5.1)
--- NOTE | 2016-07-29 07:24 | XRay Report ---
XR chest 2V Indication: Lead placement Comparison: 28 July 2016 Findings: The heart and mediastinum are stable in size and configuration. Pacemaker device is unchanged in position. The pulmonary vascularity is increased with bilateral increased interstitial lung density. There is increased right lower lung density and small effusion similar to previous. No other other lung infiltrates, effusions, pneumothorax or other abnormality is demonstrated. Impression: Findings suggest cardiac decompensation similar to previous. PROCEDURE INTERPRETED AT [facility] DEPARTMENT OF RADIOLOGY Final Report Signed by: Dr. Kong Marina
[2016-07-29] MEDS: LEVALBUTEROL 1.25 MG/3 ML NEB RESP TX SCH ×3 (08:03→23:38)
--- NOTE | 2016-07-29 08:15 | EKG Report ---
Stationary ECG Study [facility] Test Date: 07/29/2016 8:15:10 AM Pat Name: SHANEL SHORT Department: Room: 264 Gender: F Applications Engineer: JAKY : [id number] Requested by: Ruben Reagan Order Number: [id number] Reading MD: DEJON DONOVAN Intervals [place] Rate: 65 P: 175 NH: 203 QRS: -7 QRSD: 71 T: 51 QT: 395 QTc: 406 Interpretive Statements ELECTRONIC ATRIAL PACEMAKER LOW QRS COMPLEXES Electronically Signed On 08-01-16 12:16:09 CDT by DEJON DONOVAN [email or web address]
--- NOTE | 2016-07-29 09:43 | General Surgery Progress Note ---
Assessment and Plan (1) Small bowel obstruction Status: Acute Assessment and plan: She has a small bowel obstruction likely secondary to intra-abdominal adhesions. I reviewed her CT scan and she has a patent superior mesenteric artery and I think it would be unlikely that she has ischemic bowel. She has nothing that shows acidosis or signs of ischemia on her lab work. Her white blood cell count is a little bit elevated. Patient states she recently has had a urinary tract infection recently had an upper respiratory infection. We will check follow-up lab work. I'm going to treat her with IV fluids and nasogastric suction for now. I explained to her that if her small bowel obstruction does not resolve with this conservative treatment and we may need to look at surgery. 07/24: She denies any abdominal pain this morning. Her abdomen seems less distended and is not tender at all. During the night she went into atrial fibrillation with a rapid ventricular response is a question whether or not there was a cardiac event. She is moved to the CCU in her right has been managed by Hospital medicine and cardiology has been consulted. There is also question of developing pneumonia in her right lower lobe. She is on IV antibiotics. His may be the source of her elevated white blood cell count. It appears that her small bowel obstruction is responding to conservative treatment. Certainly we would like to avoid surgery if possible in this patient with multiple other medical issues. 07/25: She feels better from an abdominal standpoint. She is not having chest pain or shortness of breath. She denies any abdominal pain and is had some flatus. She still has some nasogastric output. I will keep her nasogastric tube today. I am okay with her going to the floor if it is okay with cardiology. I will leave it up to them since she did have a cardioversion yesterday. Hopefully we can avoid surgical intervention on her abdomen appears to be improving. 07/26: She has no abdominal complaints this morning. It appears that her small bowel obstruction is resolved. We will discontinue her nasogastric tube. She apparently had another episode of rapid ventricular rate yesterday. I will leave it up to the medical service as to when she is ready to be moved out of the ICU. 07/27: She has no abdominal complaints this morning and feels like her abdomen is back to its baseline. She is had sips of liquids which gone okay and she is passing some flatus. Appears that her small bowel obstructions resolved. We' ll put her on a soft diet today. She understands that should if she shows further signs of bowel obstruction that she will probably need operative treatment but I think that her bowel obstruction has probably resolved with conservative treatment. 07/28: This note is a late entry. I actually saw the patient early this morning. Patient has had episodes of bradycardia and is planned for a pacemaker today. She had some nausea and vomiting yesterday. She is not having abdominal cramping or abdominal pain. We will check an abdominal x-ray. It is unclear if her small bowel obstruction is resolving. She is a very poor surgical candidate unfortunately. We may have no choice but to operate if this has not resolved. 07/28: Her abdomen looks and feels better to her. She had an enema yesterday and may have had an element of impaction which is been relieved. She is eating a diet this morning. She is tolerating this fine this morning. She did have some nausea yesterday. I feel like her initial small bowel obstruction problem resolved with conservative treatment would probably have some issues with ileus and constipation. She is eating better but if this does not improve she may need supplemental nutrition. Current Visit: Yes (2) Leukocytosis Status: Acute Assessment and plan: It is unclear if this is related to her intra-abdominal process. I'm treating her with IV antibiotics and IV fluids. Current Visit: Yes Subjective Patient reports: Present: feels better, nausea. Absent: still having pain, vomiting, shortness of breath Exam - Constitutional Vitals: Period Temp Pulse Resp BP Sys/Watt Pulse Ox Last 24 Hr 98.4 F-99.2 F 59-70 16-20 124-166/55-81 91-96 General appearance: no acute distress - Head Head exam: Present: normocephalic - Eye Eye exam: Absent: scleral icterus - Respiratory Respiratory exam: Absent: accessory muscle use - GI/Abdominal GI/Abdominal exam: Present: soft. Absent: distended, guarding, tenderness, rebound Results - Labs CBC & BMP: 07/29/16 05:52 07/29/16 05:52 Lab Results: I have reviewed the past 24 hour labs - Diagnostic Findings Procedure: KUB x-ray: image reviewed by me Quality Measures - VTE Contraindication to Pharmacological VTE Prophylaxis: High Risk of Bleeding
[2016-07-29] MEDS: CARVEDILOL 12.5 MG TABLET PO SCH ×2 (10:15→21:05)
[2016-07-29] MEDS: POTASSIUM CHLORIDE 20 MEQ PACK PO SCH ×2 (10:16→21:05)
[2016-07-29] MEDS: LOSARTAN 25 MG TABLET PO SCH (10:16)
[2016-07-29] MEDS: PANTOPRAZOLE 40 MG TABLET PO SCH (10:16)
[2016-07-29] MEDS: AMIODARONE 200 MG TABLET PO SCH ×2 (10:21→21:06)
[2016-07-29] MEDS: BUDESONIDE/FORMOTEROL 80-4.5 INHALER 6.9 GM INH SCH ×2 (10:28→22:57)
--- NOTE | 2016-07-29 11:12 | Hospitalist Progress Note ---
Assessment and Plan - Time spent with patient Time spent with patient: Less than 30 minutes (1) Ileus Status: Acute Assessment and plan: Patient will have an NG tube placed today to suction intermittent Gomco. That peripheral nutrition with pericolic 50 mL/h. Supplement potassium and magnesium may have some influence on this ileus. Current Visit: Yes (2) Atrial fibrillation with RVR Status: Acute Assessment and plan: Rate today's below 100. We will continue to observe if there is any tachyarrhythmias appropriate measures to be taken. Patient's blood pressures are optimal at this point. Current Visit: No (3) Hypomagnesemia Status: Acute Assessment and plan: Supplement magnesium. Recheck BMP and magnesium in the morning. Current Visit: Yes (4) Hypokalemia Status: Acute Assessment and plan: Supplement potassium. Recheck BMP and magnesium tomorrow. Current Visit: No Hospitalist: Subjective Interval history: Patient is seen interviewed and examined and chart has been reviewed. Admitted to the hospital with GI dysmotility initially thought to be small bowel obstruction with patient was found to have ileus by CT scan. Her main complaint at this point is nausea and every now and then vomiting denies and ongoing abdominal pain that is tender to touch. She is acknowledging flatulence and burping she does have bowel sounds. NG tube was removed today for yesterday with intention to observe her however she has not improved I do believe she needs to have an NG tube suctioning. I will start her on peripheral nutrition at least. Exam - Constitutional Vitals: Period Temp Pulse Resp BP Sys/Watt Pulse Ox Last 24 Hr 98.4 F-99.2 F 59-70 16-20 124-166/55-81 91-96 General appearance: normal weight - Head Head exam: Present: normocephalic, atraumatic - Eye Eye exam: Present: EOMI Pupils: Present: LOVELY - ENT ENT exam: Present: normal oropharynx - Neck Neck exam: Present: normal inspection - Respiratory Respiratory exam: Present: clear to auscultation bilaterally - Cardiovascular Cardiovascular exam: Present: irregular rhythm, other (Rate below 100) - GI/Abdominal GI/Abdominal exam: Present: normal bowel sounds, soft, other - Extremities Exam Extremities exam: Present: other (Generalized weakness) - Psychiatric Psychiatric exam: Present: other (Subdued affect) - Skin Skin exam: Present: normal color, warm, dry Results - Labs CBC & BMP: 07/29/16 05:52 07/29/16 05:52 Lab Results: I have reviewed the past 24 hour labs (Noted modest elevation of white count of 12,900 with neutrophilia, patient also has type of kalemia and hypomagnesemia of 1.5 mg percent both of which need to be supplemented) Quality Measures - VTE Contraindication to Pharmacological VTE Prophylaxis: High Risk of Bleeding
[2016-07-29] MEDS ORDERED: MAGNESIUM SULF RIDER 2 GM in PREMIX 1 EACH IV PRN (11:22)
[2016-07-29] MEDS ORDERED: MAGNESIUM SULF RIDER 4 GM in PREMIX 1 EACH IV PRN (11:22)
[2016-07-29] MEDS: ENOXAPARIN 40 MG/0.4 ML SYRINGE SUBCUT SCH (11:56)
[2016-07-29] MEDS ORDERED: ZIPRASIDONE 20 MG/1 ML VIAL IM ONE (12:10)
--- NOTE | 2016-07-29 14:06 | Neurology Consult Note ---
History of Present Illness History of present illness: Ms. Ryan is a 81 year old right-handed white lady who is status post pacemaker placement complaining of headaches for last several days. Patient reported that she has had headache in the past. She is hurting presently in the left occipital region. A CT of the head done reveals no acute abnormalities. She reported similar to the headache is 6-7/10. Throbbing in character. Associated at times with nausea. No vision difficulties. Home Medications Medication Instructions Recorded Confirmed Type HYDROcodone/ACETAMIN 7.5-325 1 tablet PO Q4H PRN #20 tablet 03/15/16 07/22/16 Rx [[place] 7.5-325] Carvedilol [Coreg] 12.5 mg PO BID 07/22/16 07/22/16 History Losartan [Cozaar] 25 mg PO BEDTIME 07/22/16 07/22/16 History Allergies Allergy/AdvReac Type Severity Reaction Status Date / Time aspirin Allergy Palpitation Verified 07/22/16 18:29 s levofloxacin [From Levaquin] Allergy HIVES Verified 07/22/16 19:56 Penicillins Allergy UNCONSCIOUS Verified 07/22/16 18:29 Sulfa (Sulfonamide Allergy HIVES Verified 07/22/16 18:29 Antibiotics) 12 point system: reviewed and no additional remarkable complaints except as stated Medical,Surgical,& Family Hx - Medical History Cardio: History of: Cardiac Dysrhythmia (history of SVT ), Hypertension, [place] Neurology: History of: Cerebrovascular Accident, Migraine No history of: Seizures HEENT: History of: Eye Problem Respiratory: History of: Bronchitis Gastrointestinal: History of: Diverticulitis/ Diverticulosis, GI Problems ( constipation) Musculoskeletal: History of: Herniated Disk, Musculoskeletal Problems (arthritis ) Other: No history of: Cancer - Surgical History Cardiac Surgeries: Sugical HX of: Cardiac Catheterization Thoracic Surgeries: Patient denies;: Organ Transplant Abdominal Surgeries: Surgical HX of: Appendectomy, Cholecystectomy Reproductive Surgeries: Surgical HX of;: Section, Hysterectomy Orthopedic Surgeries: Surgical HX of;: Orthopedic Surgery - Family History Family History: Reports;: Family Cancer (two sisters (breast cancer)), Family Heart Disease (mother and father), Family Hypertension (mother and father), Family Stroke (mother and father) - Social History Smoking Status: Former smoker Frequency of Alcohol Use: None Type of Drug Use: None Exam - Constitutional Vitals: Period Temp Pulse Resp BP Sys/Watt Pulse Ox Last 24 Hr 97.8 F-99.2 F 63-98 16-20 129-166/67-89 91-96 Exam: GENERAL: Patient is in no acute distress. NECK: Neck is supple. There is no JVD. No carotid bruits present. No thyroid masses. CVS: First and second heart sounds are normal. There is no S3 present. Regular rate and rhythm. RESPIRATORY: Lungs are clear to auscultation without any rales or rhonchi. ABDOMEN: Soft and non-tender. Bowel sounds are present. There is no hepatosplenomegaly. EXT: There is no palpable edema. Peripheral pulses are present. Skin: No rashes Central Nervous system: General: Alert, awake and Oriented x 3 Speech: Fluent Comprehension: Intact and normal Facial expressions: Normal Cranial Nerves: CN1/Olfactory: Normal CN II/ Optic: Normal, Visual Mann unreliable CN III, and : LOVELY & EOMI CN V: Normal & intact CN VII: face is symmetric CNVIII: Normal CN XI/X/XI/XII: Intact and Normal Motor: Bulk and Tone is normal. Strength symmetrical Sensory: Grossly intact for all the modalities of PP, LT and temp sense Reflexes: 1+ and symmetrical Cerebellar function: Normal finger to nose and heel to rowland testing. Toes: Equivocal Gait: Not tested Results - Labs CBC & BMP: 07/29/16 05:52 07/29/16 05:52 Assessment and Plan (1) Migraine headache Status: Acute Assessment and plan: Geodon 20 mg IM 1 dose now No preventive treatment indicated at this time We will watch her closely Thank you for the consult Current Visit: Yes
[2016-07-29] MEDS: MAGNESIUM SULF RIDER 2 GM in PREMIX 1 EACH IV PRN (17:37)
[2016-07-29] MEDS: AMINO ACIDS/DEXT/LYTES 4.25-5% 2,000 ML IV SCH (19:04)
[2016-07-29] MEDS: POTASSIUM CHLORIDE RIDER 10 MEQ in PREMIX 1 EACH IV PRN ×2 (21:22→22:55)
[2016-07-29] MEDS: ACETAMINOPHEN 325 MG TABLET PO PRN (23:42)
[2016-07-30] MEDS: POTASSIUM CHLORIDE RIDER 10 MEQ in PREMIX 1 EACH IV PRN ×2 (00:31→02:06)
[2016-07-30] MEDS: CLINDAMYCIN INJ 600 MG in PREMIX 1 EACH IV SCH ×3 (01:54→16:54)
[2016-07-30 05:08] LABS: Basophils # 0.1 10*3/uL (0.0-0.2); Eosinophils # 0.1 10*3/uL (0.0-0.87); Eosinophils % 1.2 % (0.00-10.9); Hematocrit 32.2 VOL% (35.7-47.0); Hemoglobin 10.9 GM/DL (12.0-16.0); Immature Granulocytes % 2.3 %; Immature Granulocytes Absolute 0.27 #; Lymphocytes # 5.2 10*3/uL (1.4-4.0); Lymphocytes % 43.9 % (21.3-54.2); Mean Corpuscular HGB Conc 33.9 GM/DL (32-36); Mean Corpuscular Hemoglobin 32 PG (27-34); Mean Corpuscular Volume 93.3 FL (87-102); Mean Platelet Volume 10.2 FL (9.6-12.0); Monocytes # 0.7 10*3/uL (0.11-0.8); Neutrophils # 5.4 10*3/uL (1.4-7.4); Neutrophils % 45.6 % (38.7-73.9); Platelet Count 167 T/CUMM (130-400); Red Blood Count 3.45 MC/CUMM (3.8-5.5); White Blood Count 11.9 T/CUMM (4-12)
[2016-07-30] MEDS: SODIUM CHLORIDE 0.9% 1,000 ML IV SCH ×2 (05:32→17:09)
[2016-07-30 05:37] LABS: Hypochromasia Slight
[2016-07-30 05:38] LABS: Microcytosis 1+; Platelet Estimate Adequate
[2016-07-30 05:49] LABS: Calcium 7.4 MG/DL (8.5-10.1); Magnesium 2.3 MG/DL (1.8-2.4); Osmolality,Calculated 276.5 MOS/KG (273-304); Potassium 3.8 MMOL/L (3.5-5.1)
[2016-07-30] MEDS: LEVALBUTEROL 1.25 MG/3 ML NEB RESP TX SCH ×3 (06:47→23:49)
[2016-07-30] MEDS: AMIODARONE 200 MG TABLET PO SCH ×2 (09:56→20:52)
[2016-07-30] MEDS: POTASSIUM CHLORIDE 20 MEQ PACK PO SCH ×2 (09:56→20:52)
[2016-07-30] MEDS: PANTOPRAZOLE 40 MG TABLET PO SCH (09:56)
[2016-07-30] MEDS: LOSARTAN 25 MG TABLET PO SCH (09:56)
[2016-07-30] MEDS: CARVEDILOL 12.5 MG TABLET PO SCH ×2 (09:56→20:52)
[2016-07-30] MEDS: BUDESONIDE/FORMOTEROL 80-4.5 INHALER 6.9 GM INH SCH ×2 (09:57→20:52)
--- NOTE | 2016-07-30 11:47 | General Surgery Progress Note ---
Assessment and Plan (1) Ileus Status: Acute Assessment and plan: The patient is improving daily. She is passing a lot of gas. No bowel movements yesterday which she had 1 2 days ago. She has not gotten out of bed since she has been in the hospital. Her abdomen is slightly tympanic but she has good bowel sounds and if she appears to be improving so we will give her full liquids today and see how she does. Continue peripheral alimentation for now. Physical therapy consult Current Visit: Yes Subjective Patient reports: Present: no new complaints, feels better, tolerating liquids well, flatus, no bowel movement, afebrile Narrative: The patient had a bowel movement 2 days ago but did not have one yesterday. She feels much better as days go by. She has not gotten out of bed and walk yet. She would like to try a full liquid diet today. She is passing a lot of gas. Exam - Constitutional Vitals: Period Temp Pulse Resp BP Sys/Watt Pulse Ox Last 24 Hr 97.8 F-99.0 F 60-116 14-22 104-143/58-80 90-99 General appearance: normal weight, no acute distress - Head Head exam: Present: normal inspection, normocephalic - Eye Eye exam: Present: EOMI Pupils: Present: LOVELY - ENT ENT exam: Present: normal exam Mouth exam: Present: normal external inspection, normal voice - Neck Neck exam: Present: normal inspection, trachea midline - Respiratory Respiratory exam: Present: clear to auscultation bilaterally. Absent: accessory muscle use, chest wall tenderness - Cardiovascular Cardiovascular exam: Present: RRR. Absent: systolic murmur, tachycardia - GI/Abdominal GI/Abdominal exam: Present: normal bowel sounds, distended, soft, other (The abdomen is tympanic.). Absent: ascites, guarding, tenderness, rebound - Extremities Exam Extremities exam: Present: normal inspection, normal capillary refill - Back Exam Back exam: Present: normal inspection - Neurological Exam Neurological exam: Present: alert, oriented X3 Speech: Present: normal - Skin Skin exam: Present: normal color, warm Results - Labs CBC & BMP: 07/30/16 04:56 07/30/16 04:56 Quality Measures - VTE Contraindication to Pharmacological VTE Prophylaxis: High Risk of Bleeding
[2016-07-30] MEDS: ENOXAPARIN 40 MG/0.4 ML SYRINGE SUBCUT SCH (11:48)
--- NOTE | 2016-07-30 12:51 | Neurology Progress Note ---
Neurology - PN : Subjective Interval history: Patient seems to be doing really well this morning. No more headaches reported. Slept well last night. Exam (Progress Note) - Constitutional Vitals: Period Temp Pulse Resp BP Sys/Watt Pulse Ox Last 24 Hr 96.6 F-99.0 F 60-116 14-22 104-169/58-90 90-99 Exam: GENERAL: Patient is in no acute distress. NECK: Neck is supple. There is no JVD. No carotid bruits present. No thyroid masses. CVS: First and second heart sounds are normal. There is no S3 present. Regular rate and rhythm. RESPIRATORY: Lungs are clear to auscultation without any rales or rhonchi. ABDOMEN: Soft and non-tender. Bowel sounds are present. There is no hepatosplenomegaly. EXT: There is no palpable edema. Peripheral pulses are present. Skin: No rashes Central Nervous system: General: Alert, awake and Oriented x 3 Speech: Fluent Comprehension: Intact and normal Facial expressions: Normal Cranial Nerves: CN1/Olfactory: Normal CN II/ Optic: Normal, Visual Mann unreliable CN III, and : LOVELY & EOMI CN V: Normal & intact CN VII: face is symmetric CNVIII: Normal CN XI/X/XI/XII: Intact and Normal Motor: Bulk and Tone is normal. Strength symmetrical Sensory: Grossly intact for all the modalities of PP, LT and temp sense Reflexes: 1+ and symmetrical Cerebellar function: Normal finger to nose and heel to rowland testing. Toes: Equivocal Gait: Not tested Results - Labs CBC & BMP: 07/30/16 04:56 07/30/16 04:56 Assessment and Plan (1) Migraine headache Status: Acute Assessment and plan: Continue current supportive management No further intervention at this time Current Visit: Yes Quality Measures - VTE Contraindication to Pharmacological VTE Prophylaxis: High Risk of Bleeding
--- NOTE | 2016-07-30 13:11 | Cardiology Progress Note ---
Assessment and Plan (1) Sick sinus syndrome due to SA node dysfunction Status: Acute Assessment and plan: Her bradyarrhythmia secondary to this or managed. Her tachyarrhythmias will hopefully be managed with preferential atrial pacing. We will turn ATP pacing on in 3 months. At present her rhythm is stable electron atrial paced. Current Visit: Yes (2) Bradycardia Status: Acute Assessment and plan: This is now managed with her pacemaker. Current Visit: Yes (3) Paroxysmal atrial fibrillation Status: Chronic Assessment and plan: She is a pacing for most time now. She still had a few breakthroughs of her atrial fibrillation. Current Visit: Yes (4) Leukocytosis Status: Acute Assessment and plan: This is a little better today. Current Visit: Yes (5) Hypertension Status: Chronic Assessment and plan: Blood pressure been up and down some. Current Visit: Yes (6) Former tobacco use Status: Chronic Current Visit: Yes (7) COPD (chronic obstructive pulmonary disease) Status: Chronic Current Visit: Yes (8) Cardiac pacemaker in situ Status: Acute Assessment and plan: This is implanted this admission and is stable. Current Visit: Yes Cardiology - PN: Subj Interval history: She continues to do well now for the last 24 hours from cardiac standpoint. She states she has no pain with her pacemaker. She is pacing most the time atrially but has had some bouts of paroxysmal atrial fibrillation. Her GI issues continue but may be improving. She has other issues including her COPD. Her blood pressure down well. Her migraine headaches apparently been an issue and Dr. Sullivan is seen the patient. The patient's lower today is generally stable. Exam (Progress Note) - Constitutional Vitals: Period Temp Pulse Resp BP Sys/Watt Pulse Ox Last 24 Hr 96.6 F-99.0 F 60-116 14-22 104-169/58-90 90-99 Exam: General appearance: She is a thin frail appearing female in no acute distress HEENT exam: normal inspection, atraumatic, some temporal wasting. Mucous membranes are moist. Neck exam: normal inspection no JVD. No carotid bruit. Trachea is in midline Respiratory/lungs exam: clear to auscultation bilaterally good air movement. Cardiovascular exam: regular rate and rhythm, no murmur or gallop or rub. No precordial lift. Chest wall exam: Left chest pacemaker site is stable and healing well. GI/Abdominal exam: normal bowel sounds, soft, nontender, slightly distended, no abdominal bruits or pulsatile masses. Extremeties/musculoskeletal: normal inspection without edema or cyanosis. Neurological exam: alert, oriented X3, no focal deficits Psychiatric exam: normal affect, normal mood. Cognitive function is grossly normal. Skin exam: normal color, warm Result/EKG - Labs CBC & BMP: 07/30/16 04:56 07/30/16 04:56 Labs: Laboratory Results - last 24 hr 07/30/16 07/30/16 07/30/16 04:56 04:56 04:56 WBC 11.9 RBC 3.45 L Hgb 10.9 L Hct 32.2 L MCV 93.3 MCH 32 MCHC 33.9 RDW 13.0 Plt Count 167 MPV 10.2 Neut % (Auto) 45.6 Lymph % (Auto) 43.9 [place] % (Auto) 6.0 Eos % (Auto) 1.2 Baso % (Auto) 1.0 H Neut # (Auto) 5.4 Lymph # (Auto) 5.2 H [place] # (Auto) 0.7 Eos # (Auto) 0.1 Baso # (Auto) 0.1 Immature Gran % 2.3 Nucleated RBC % 0.0 Immature Gran # 0.27 Nucleated RBCs # 0.00 Platelet Estimate Adequate Hypochromasia Slight Microcytosis 1+ Sodium 139 Potassium 3.8 Chloride 101 Carbon Dioxide 30 Anion Gap 11.8 BUN 11 Creatinine 0.30 L GFR Calculation 99 BUN/Creatinine Ratio 36.00 H Glucose 123 H Calculated Osmolality 276.5 Calcium 7.4 L Phosphorus 3.0 Magnesium 2.3 Albumin 07/30/16 04:56 WBC RBC Hgb Hct MCV MCH MCHC RDW Plt Count MPV Neut % (Auto) Lymph % (Auto) [place] % (Auto) Eos % (Auto) Baso % (Auto) Neut # (Auto) Lymph # (Auto) [place] # (Auto) Eos # (Auto) Baso # (Auto) Immature Gran % Nucleated RBC % Immature Gran # Nucleated RBCs # Platelet Estimate Hypochromasia Microcytosis Sodium Potassium Chloride Carbon Dioxide Anion Gap BUN Creatinine GFR Calculation BUN/Creatinine Ratio Glucose Calculated Osmolality Calcium Phosphorus Magnesium Albumin 2.0 L - Impressions Impressions: Telemetry today with electronic atrial pacing with good AV conduction. Quality Measures - VTE Contraindication to Pharmacological VTE Prophylaxis: High Risk of Bleeding
--- NOTE | 2016-07-30 14:08 | Hospitalist Progress Note ---
Assessment and Plan (1) Ileus Status: Acute Assessment and plan: Stop plans of placing an NG tube at this point; started peripheral nutrition with perical at 50 mL/h. Supplement potassium and magnesium may have some influence on this ileus. Check morning labs tomorrow. Current Visit: Yes (2) Atrial fibrillation with RVR Status: Acute Assessment and plan: Patient has paced beats. Current Visit: No (3) Hypomagnesemia Status: Acute Assessment and plan: Resolved on today's lab Current Visit: Yes (4) Hypokalemia Status: Acute Assessment and plan: Supplement potassium. Recheck BMP and magnesium tomorrow. Current Visit: No Hospitalist: Subjective Interval history: Patient has been seen interviewed and examined chart has been reviewed. I have noted that the surgery will prefer to start oral feedings at this point slowly. Patient still on TPN in the meantime. She still has a Lopez catheter which will need to be discontinued. Is much more animated today compared to yesterday. Exam - Constitutional Vitals: Period Temp Pulse Resp BP Sys/Watt Pulse Ox Last 24 Hr 96.6 F-99.0 F 60-116 14-22 104-169/58-90 90-99 General appearance: normal weight - Head Head exam: Present: normocephalic, atraumatic - Eye Eye exam: Present: EOMI Pupils: Present: LOVELY - ENT ENT exam: Present: normal oropharynx - Neck Neck exam: Present: normal inspection - Respiratory Respiratory exam: Present: clear to auscultation bilaterally - Cardiovascular Cardiovascular exam: Present: regular rate and rhythm, other (Patient has a paced beats) - GI/Abdominal GI/Abdominal exam: Present: normal bowel sounds, other (Abdomen slightly protuberant nontender) - Extremities Exam Extremities exam: Present: other (Generalized weakness but can move her limbs without limitation) - Neurological Exam Neurological exam: Present: alert, oriented X3, CN II-XII intact - Psychiatric Psychiatric exam: Present: normal affect, normal mood - Skin Skin exam: Present: normal color, warm, dry Results - Labs CBC & BMP: 07/30/16 04:56 07/30/16 04:56 Lab Results: I have reviewed the past 24 hour labs Quality Measures - VTE Contraindication to Pharmacological VTE Prophylaxis: High Risk of Bleeding
[2016-07-30] MEDS: AMINO ACIDS/DEXT/LYTES 4.25-5% 2,000 ML IV SCH (17:07)
[2016-07-30] MEDS: ONDANSETRON 4 MG/2 ML VIAL IV PRN (20:46)
[2016-07-31] MEDS: AMIODARONE 200 MG TABLET PO SCH ×3 (00:44→20:49)
[2016-07-31] MEDS: CARVEDILOL 12.5 MG TABLET PO SCH ×3 (00:45→20:49)
[2016-07-31] MEDS: CLINDAMYCIN INJ 600 MG in PREMIX 1 EACH IV SCH ×3 (01:37→16:10)
[2016-07-31] MEDS: ONDANSETRON 4 MG/2 ML VIAL IV PRN (02:46)
[2016-07-31] MEDS: ACETAMINOPHEN 325 MG TABLET PO PRN (02:51)
[2016-07-31 04:45] LABS: Basophils # 0.1 10*3/uL (0.0-0.2); Basophils % 0.9 % (0.0-0.8); Eosinophils # 0.1 10*3/uL (0.0-0.87); Hematocrit 32.8 VOL% (35.7-47.0); Hemoglobin 11.6 GM/DL (12.0-16.0); Immature Granulocytes % 2.1 %; Immature Granulocytes Absolute 0.31 #; Lymphocytes # 4.9 10*3/uL (1.4-4.0); Lymphocytes % 33.6 % (21.3-54.2); Mean Corpuscular HGB Conc 35.4 GM/DL (32-36); Mean Corpuscular Hemoglobin 32 PG (27-34); Mean Corpuscular Volume 91.1 FL (87-102); Mean Platelet Volume 10.9 FL (9.6-12.0); Monocytes # 0.9 10*3/uL (0.11-0.8); Monocytes % 6.1 % (1.7-12.7); Neutrophils # 8.1 10*3/uL (1.4-7.4); Neutrophils % 56.3 % (38.7-73.9); Platelet Count 179 T/CUMM (130-400); White Blood Count 14.4 T/CUMM (4-12)
[2016-07-31 05:27] LABS: Calcium 7.6 MG/DL (8.5-10.1); Magnesium 1.8 MG/DL (1.8-2.4); Osmolality,Calculated 270.1 MOS/KG (273-304); Potassium 3.5 MMOL/L (3.5-5.1)
[2016-07-31] MEDS: SODIUM CHLORIDE 0.9% 1,000 ML IV SCH ×2 (06:26→19:22)
[2016-07-31] MEDS: LEVALBUTEROL 1.25 MG/3 ML NEB RESP TX SCH ×3 (07:37→23:44)
[2016-07-31 08:03] LABS: Apearance,Urine Slightly Hazy (Clear); Bacteria,Urine Occasional /HPF (Few); Bilirubin,Urine Negative (Negative); Blood, Urine Moderate mg/dL (Negative); Glucose,Urine (UA) Negative (Negative); Ketones,Urine Negative (Negative); Mucus,Urine Occasional /LPF (Occasional); Nitrite,Urine Negative (Negative); Protein,Urine Negative; RBC,Urine 10 /HPF (0-4); Squamous Epithelial Cell,Urine Occasional /HPF (0-10); Urine Color Yellow (Yellow); Urine Specific Gravity 1.009 (1.001-1.035); Urine Urobilinogen < 2.0 EU/DL (0.2-1.0); WBC,Urine 1 /HPF (0-6)
[2016-07-31] MEDS ORDERED: ZIPRASIDONE 20 MG/1 ML VIAL IM ONE (08:23)
--- NOTE | 2016-07-31 08:52 | XRay Report ---
History: Nasogastric tube placement. Ileus. History of hypertension and atrial fibrillation Date: 07/31/2016 Study: Chest x-ray AP portable Comparison exam: July 29, 2016 The nasogastric tube is well positioned at the mid to distal stomach body level. The cardiac silhouette is upper normal in size. There is no mediastinal mass. There is hazy opacity overlying the lower lung zones, likely a combination of layering pleural effusion and bibasilar atelectasis. There is slightly improved aeration of the right lower lung compared to the previous study. A left subclavian multiple lead transvenous pacemaker is noted as before. The osseous structures are unchanged. Surgical prosthesis overlies the EG junction level as before. Impression: The nasogastric tube is well positioned. Continued bibasilar atelectasis and pleural effusion PROCEDURE INTERPRETED AT [facility] DEPARTMENT OF RADIOLOGY Final Report Signed by: Dr. Rabia Quiroga
--- NOTE | 2016-07-31 08:55 | Hospitalist Progress Note ---
Assessment and Plan (1) Ileus Status: Acute Assessment and plan: NG tube has been replaced. Continue suction intermittently. Obtain a chest x- ray to evaluate for possibility of aspiration. Patient's white count is going up some. Also check a urinalysis to evaluate for this. Electrolytes are optimal this morning. Current Visit: Yes (2) Atrial fibrillation with RVR Status: Acute Assessment and plan: Patient has paced beats. Current Visit: No (3) Hypomagnesemia Status: Acute Assessment and plan: Resolved on today's lab Current Visit: Yes (4) Hypokalemia Status: Acute Assessment and plan: Resolved on today's labs Current Visit: No Hospitalist: Subjective Interval history: Patient has been seen interviewed and examined and chart has been reviewed. She is evening yesterday patient started nausea and vomiting again. Nasogastric tube with the protein and noticed a large volume of suction material in the receptacle. This is looks brown coffee-ground like. No flank blood. Patient is on the peripheral nutrition at this point. She is was admitted to the hospital with severe ileus. Surgery is on the case. Exam - Constitutional Vitals: Period Temp Pulse Resp BP Sys/Watt Pulse Ox Last 24 Hr 96.6 F-98.2 F 56-64 16-20 147-175/77-90 93-98 General appearance: normal weight - Head Head exam: Present: normocephalic, atraumatic - Eye Eye exam: Present: EOMI Pupils: Present: LOVELY - ENT ENT exam: Present: normal oropharynx, other (She has a nasogastric tube) - Neck Neck exam: Present: normal inspection - Respiratory Respiratory exam: Present: clear to auscultation bilaterally - Cardiovascular Cardiovascular exam: Present: regular rate and rhythm - GI/Abdominal GI/Abdominal exam: Present: normal bowel sounds, other (Slightly protuberant abdomen. Patient does have mild discomfort to palpation in the upper abdomen.) - Extremities Exam Extremities exam: Present: full ROM, other (Generalized weakness) - Back Exam Back exam: Present: normal inspection - Neurological Exam Neurological exam: Present: alert, oriented X3, CN II-XII intact - Psychiatric Psychiatric exam: Present: normal mood, other (Subdued affect) - Skin Skin exam: Present: normal color, warm, dry Results - Labs CBC & BMP: 07/31/16 03:59 07/31/16 03:59 Lab Results: I have reviewed the past 24 hour labs (Noted elevated white count of 14,400 will check UA with reflex culture obtained the bedside chest x-ray) Quality Measures - VTE Contraindication to Pharmacological VTE Prophylaxis: High Risk of Bleeding
--- NOTE | 2016-07-31 10:10 | Cardiology Progress Note ---
Assessment and Plan (1) Sick sinus syndrome due to SA node dysfunction Status: Acute Assessment and plan: She has had pauses and bradycardia arrhythmias. She has pacemaker dysfunction appropriate this time. Current Visit: Yes (2) Bradycardia Status: Acute Assessment and plan: This is now managed with her pacemaker. Current Visit: Yes (3) Paroxysmal atrial fibrillation Status: Chronic Assessment and plan: She is atrial pacing for most time now. No breakthrough dysrhythmia on the last 24 hours. Current Visit: Yes (4) Leukocytosis Status: Acute Assessment and plan: Mild leukocytosis today Current Visit: Yes (5) Hypertension Status: Chronic Assessment and plan: Blood pressure been up and down some. Generally is stable. Current Visit: Yes (6) Former tobacco use Status: Chronic Current Visit: Yes (7) COPD (chronic obstructive pulmonary disease) Status: Chronic Current Visit: Yes (8) Cardiac pacemaker in situ Status: Acute Assessment and plan: Pacemaker site with good and stable. Current Visit: Yes Cardiology - PN: Subj Interval history: This 2 still had a good day yesterday had actually eaten and felt better and the family thought she is doing very well but this morning had acute abdominal distention he had had an NG tube placed. She's been given some pain medication and is somewhat sedated at this time. From a cardiac standpoint she's done well. Her vital signs been fairly stable and her heart rates of been stable. Her rhythm is been atrially paced. I don't see any evidence of breakthrough atrial fibrillation the last 24 hours. Overall her GI issues with her most significant problems. Exam (Progress Note) - Constitutional Vitals: Period Temp Pulse Resp BP Sys/Watt Pulse Ox Last 24 Hr 96.6 F-98.2 F 56-64 16-20 131-175/60-90 93-98 Exam: General appearance: She is a thin frail appearing female in no acute distress but is a little sedate from medication HEENT exam: normal inspection, atraumatic, some temporal wasting. NG tube in place. Neck exam: normal inspection no JVD. No carotid bruit. Trachea is in midline Respiratory/lungs exam: clear to auscultation anteriorly/bilaterally good air movement. Cardiovascular exam: regular rate and rhythm, no murmur or gallop or rub. No precordial lift. Chest wall exam: Left chest pacemaker site is stable and healing well. GI/Abdominal exam: normal bowel sounds, soft, nontender, slightly distended, no abdominal bruits or pulsatile masses. Extremeties/musculoskeletal: normal inspection without edema or cyanosis. Neurological exam: alert, oriented X3, no focal deficits Psychiatric exam: normal affect, normal mood. Cognitive function is grossly normal. Skin exam: normal color, warm Result/EKG - Labs CBC & BMP: 07/31/16 03:59 07/31/16 03:59 Lab Results: I have reviewed the past 24 hour labs Labs: Laboratory Results - last 24 hr 07/31/16 07/31/16 07/31/16 03:59 03:59 07:15 WBC 14.4 H RBC 3.60 L Hgb 11.6 L Hct 32.8 L MCV 91.1 MCH 32 MCHC 35.4 RDW 13.0 Plt Count 179 MPV 10.9 Neut % (Auto) 56.3 Lymph % (Auto) 33.6 [place] % (Auto) 6.1 Eos % (Auto) 1.0 Baso % (Auto) 0.9 H Neut # (Auto) 8.1 H Lymph # (Auto) 4.9 H [place] # (Auto) 0.9 H Eos # (Auto) 0.1 Baso # (Auto) 0.1 Immature Gran % 2.1 Nucleated RBC % 0.0 Immature Gran # 0.31 Nucleated RBCs # 0.00 Sodium 135 L Potassium 3.5 Chloride 97 L Carbon Dioxide 31 Anion Gap 10.5 BUN 12 Creatinine 0.30 L GFR Calculation 99 BUN/Creatinine Ratio 40.00 H Glucose 124 H Calculated Osmolality 270.1 L Calcium 7.6 L Magnesium 1.8 Urine Color Yellow Urine Appearance Slightly hazy Urine pH 8.0 Ur Specific [place] 1.009 Urine Protein Negative Urine Glucose (UA) Negative Urine Ketones Negative Urine Blood Moderate Urine Nitrate Negative Urine Bilirubin Negative Urine Urobilinogen < 2.0 H Urine Leukocytes Negative Urine RBC 10 Urine WBC 1 Ur Squamous Epith Cells Occasional Urine Bacteria Occasional Urine Mucus Occasional Ur Culture Indicated? Not indicated - Impressions Impressions: Telemetry with electronic atrial pacing and good AV conduction. Quality Measures - VTE Contraindication to Pharmacological VTE Prophylaxis: High Risk of Bleeding
[2016-07-31] MEDS: LOSARTAN 25 MG TABLET PO SCH (11:31)
[2016-07-31] MEDS: POTASSIUM CHLORIDE 20 MEQ PACK PO SCH ×2 (11:32→20:22)
[2016-07-31] MEDS: PANTOPRAZOLE 40 MG TABLET PO SCH (11:32)
[2016-07-31] MEDS: BUDESONIDE/FORMOTEROL 80-4.5 INHALER 6.9 GM INH SCH ×2 (12:57→20:49)
[2016-07-31] MEDS: ENOXAPARIN 40 MG/0.4 ML SYRINGE SUBCUT SCH (12:57)
--- NOTE | 2016-07-31 13:22 | General Surgery Progress Note ---
Assessment and Plan (1) Ileus Status: Acute Assessment and plan: The patient's status has declined some since yesterday. She has been vomiting and she is belching even now on trying to talk to her and gagging a little bit. I asked the nurses to replace the NG tube and also a Lopez to prevent aspiration and also to quantify her urine output since she has worsened some. I will also order an abdominal x-ray. I do not think there is any acute indication for operative intervention right now we will continue her peripheral alimentation. Repeat labs tomorrow and potentially get another contrast based studies to see what the status of her intestinal problems are. She is still passing some gas she says. This would lead me against thinking she has any sort of complete obstruction. Current Visit: Yes Subjective Patient reports: Present: no new complaints, still having pain, afebrile Narrative: The patient is not doing as well this morning. She has been having a lot of vomiting and belching overnight. Her Lopez was removed yesterday and she is having difficulty using the bedpan as well. Her stomach is more bloated. Exam - Constitutional Vitals: Period Temp Pulse Resp BP Sys/Watt Pulse Ox Last 24 Hr 97.1 F-99.5 F 56-75 16-20 127-175/60-85 93-98 General appearance: normal weight, no acute distress - Head Head exam: Present: normal inspection, normocephalic - Eye Eye exam: Present: EOMI Pupils: Present: LOVELY - ENT ENT exam: Present: normal exam Mouth exam: Present: normal external inspection, normal voice - Neck Neck exam: Present: normal inspection, trachea midline - Respiratory Respiratory exam: Present: clear to auscultation bilaterally, chest wall tenderness (The patient has expected tenderness over her pacemaker site.). Absent: accessory muscle use - Cardiovascular Cardiovascular exam: Present: RRR. Absent: systolic murmur, tachycardia - GI/Abdominal GI/Abdominal exam: Present: distended, hypoactive bowel sounds, tenderness ( There is no diffuse peritonitis but the patient is slightly more tender than yesterday.), soft - Extremities Exam Extremities exam: Present: normal inspection, normal capillary refill - Back Exam Back exam: Present: normal inspection - Neurological Exam Neurological exam: Present: alert, oriented X3 Speech: Present: normal - Skin Skin exam: Present: normal color, warm Results - Labs CBC & BMP: 07/31/16 03:59 07/31/16 03:59 - Diagnostic Findings Procedure: Chest x-ray: image reviewed by me (Appropriate position of NG tube.) Quality Measures - VTE Contraindication to Pharmacological VTE Prophylaxis: High Risk of Bleeding
--- NOTE | 2016-07-31 13:45 | XRay Report ---
History: Cough and leukocytosis Date: 07/31/2016 at 10:06 AM Study: Chest x-ray AP portable Comparison exam: 07/31/2016 at 7:35 AM The nasogastric tube is well positioned. The cardiomediastinal silhouette is unchanged. There is continued bibasilar atelectasis/infiltrate and pleural effusion, unchanged from the earlier study. There is no new or worsening process. There is no pneumothorax. A left subclavian multiple lead transvenous pacemaker device is in place. Osseous structures are unchanged. Impression: No gross overall change from the earlier study. Continued bibasilar atelectasis/infiltrate and pleural effusion PROCEDURE INTERPRETED AT [facility] [place] DEPARTMENT OF RADIOLOGY Final Report Signed by: Dr. Rabia Quiroga
--- NOTE | 2016-07-31 14:18 | XRay Report ---
History: Ileus Date: 07/31/2016 Study: KUB Comparison exam: July 28, 2016 The nasogastric tube is positioned with its tip at the distal stomach body level. Some occasional scattered nonspecific air-filled loops of large and small bowel are noted throughout the abdomen. There is reduced gaseous distention of the abdomen to a mild degree since the prior study. Surgical clips from previous cholecystectomy overlie the right upper abdomen. Surgical prosthesis overlies the EG junction region. There is prominent degenerative disc disease of the lumbar spine with moderate lumbar levoscoliosis. Impression: Improving ileus compared to the previous study. Nasogastric tube is well-positioned PROCEDURE INTERPRETED AT [facility] DEPARTMENT OF RADIOLOGY Final Report Signed by: Dr. Rabia Quiroga
[2016-07-31] MEDS: POTASSIUM CHLORIDE RIDER 10 MEQ in PREMIX 1 EACH IV PRN ×3 (16:05→18:01)
[2016-07-31] MEDS: AMINO ACIDS/DEXT/LYTES 4.25-5% 2,000 ML IV SCH (18:46)
[2016-08-01] MEDS: CLINDAMYCIN INJ 600 MG in PREMIX 1 EACH IV SCH (00:32)
[2016-08-01 05:13] LABS: Basophils # 0.1 10*3/uL (0.0-0.2); Basophils % 0.8 % (0.0-0.8); Eosinophils # 0.2 10*3/uL (0.0-0.87); Eosinophils % 1.2 % (0.00-10.9); Hematocrit 36.8 VOL% (35.7-47.0); Hemoglobin 12.7 GM/DL (12.0-16.0); Immature Granulocytes % 1.7 %; Immature Granulocytes Absolute 0.27 #; Lymphocytes # 5.7 10*3/uL (1.4-4.0); Lymphocytes % 35.8 % (21.3-54.2); Mean Corpuscular HGB Conc 34.5 GM/DL (32-36); Mean Corpuscular Hemoglobin 32 PG (27-34); Mean Corpuscular Volume 92.2 FL (87-102); Mean Platelet Volume 11.1 FL (9.6-12.0); Monocytes # 0.8 10*3/uL (0.11-0.8); Monocytes % 4.8 % (1.7-12.7); Neutrophils # 8.8 10*3/uL (1.4-7.4); Neutrophils % 55.7 % (38.7-73.9); Platelet Count 186 T/CUMM (130-400); Red Blood Count 3.99 MC/CUMM (3.8-5.5); Red Cell Distribution Width 13.3 % (9.3-17.3); White Blood Count 15.8 T/CUMM (4-12)
[2016-08-01 05:55] LABS: Albumin 2.2 G/DL (3.4-5.0); Bilirubin,Total 1.2 MG/DL (0.2-1.0); Calcium 7.7 MG/DL (8.5-10.1); Magnesium 1.9 MG/DL (1.8-2.4); Osmolality,Calculated 274.7 MOS/KG (273-304); Potassium 3.8 MMOL/L (3.5-5.1); Total Protein 4.2 G/DL (6.4-8.3)
[2016-08-01] MEDS: LEVALBUTEROL 1.25 MG/3 ML NEB RESP TX SCH ×3 (07:00→23:23)
--- NOTE | 2016-08-01 07:33 | General Surgery Progress Note ---
Assessment and Plan (1) Small bowel obstruction Status: Acute Assessment and plan: She has a small bowel obstruction likely secondary to intra-abdominal adhesions. I reviewed her CT scan and she has a patent superior mesenteric artery and I think it would be unlikely that she has ischemic bowel. She has nothing that shows acidosis or signs of ischemia on her lab work. Her white blood cell count is a little bit elevated. Patient states she recently has had a urinary tract infection recently had an upper respiratory infection. We will check follow-up lab work. I'm going to treat her with IV fluids and nasogastric suction for now. I explained to her that if her small bowel obstruction does not resolve with this conservative treatment and we may need to look at surgery. 07/24: She denies any abdominal pain this morning. Her abdomen seems less distended and is not tender at all. During the night she went into atrial fibrillation with a rapid ventricular response is a question whether or not there was a cardiac event. She is moved to the CCU in her right has been managed by Hospital medicine and cardiology has been consulted. There is also question of developing pneumonia in her right lower lobe. She is on IV antibiotics. His may be the source of her elevated white blood cell count. It appears that her small bowel obstruction is responding to conservative treatment. Certainly we would like to avoid surgery if possible in this patient with multiple other medical issues. 07/25: She feels better from an abdominal standpoint. She is not having chest pain or shortness of breath. She denies any abdominal pain and is had some flatus. She still has some nasogastric output. I will keep her nasogastric tube today. I am okay with her going to the floor if it is okay with cardiology. I will leave it up to them since she did have a cardioversion yesterday. Hopefully we can avoid surgical intervention on her abdomen appears to be improving. 07/26: She has no abdominal complaints this morning. It appears that her small bowel obstruction is resolved. We will discontinue her nasogastric tube. She apparently had another episode of rapid ventricular rate yesterday. I will leave it up to the medical service as to when she is ready to be moved out of the ICU. 07/27: She has no abdominal complaints this morning and feels like her abdomen is back to its baseline. She is had sips of liquids which gone okay and she is passing some flatus. Appears that her small bowel obstructions resolved. We' ll put her on a soft diet today. She understands that should if she shows further signs of bowel obstruction that she will probably need operative treatment but I think that her bowel obstruction has probably resolved with conservative treatment. 07/28: This note is a late entry. I actually saw the patient early this morning. Patient has had episodes of bradycardia and is planned for a pacemaker today. She had some nausea and vomiting yesterday. She is not having abdominal cramping or abdominal pain. We will check an abdominal x-ray. It is unclear if her small bowel obstruction is resolving. She is a very poor surgical candidate unfortunately. We may have no choice but to operate if this has not resolved. 07/29: Her abdomen looks and feels better to her. She had an enema yesterday and may have had an element of impaction which is been relieved. She is eating a diet this morning. She is tolerating this fine this morning. She did have some nausea yesterday. I feel like her initial small bowel obstruction problem resolved with conservative treatment would probably have some issues with ileus and constipation. She is eating better but if this does not improve she may need supplemental nutrition. 08/01: She feels better since the nasogastric tube was placed. Her abdomen is nontender and nondistended. Her x-ray is more suggestive of an ileus which would be not surprising considering her multiple other comorbidities. It is still unclear whether this is truly an ileus versus bowel obstruction. She is a very poor operative candidate. We will obtain a CT scan with contrast hopefully better delineate this. Current Visit: Yes (2) Leukocytosis Status: Acute Assessment and plan: It is unclear if this is related to her intra-abdominal process. I'm treating her with IV antibiotics and IV fluids. Current Visit: Yes Subjective Patient reports: Present: feels better, flatus, nausea, vomiting, shortness of breath. Absent: still having pain Exam - Constitutional Vitals: Period Temp Pulse Resp BP Sys/Watt Pulse Ox Last 24 Hr 97.5 F-99.5 F 60-77 16-18 127-183/67-92 90-98 General appearance: no acute distress, cachectic - ENT Mouth exam: Present: normal voice - Neck Neck exam: Present: trachea midline - Respiratory Respiratory exam: Absent: accessory muscle use - GI/Abdominal GI/Abdominal exam: Present: soft. Absent: distended, tenderness, rebound Results - Labs CBC & BMP: 08/01/16 03:44 08/01/16 03:44 Lab Results: I have reviewed the past 24 hour labs - Diagnostic Findings Procedure: KUB x-ray: report reviewed by me Quality Measures - VTE Contraindication to Pharmacological VTE Prophylaxis: High Risk of Bleeding
[2016-08-01] MEDS ORDERED: AZTREONAM 1,000 MG VIAL IM SCH (08:00)
[2016-08-01] MEDS ORDERED: AZTREONAM 1,000 MG VIAL IV SCH (08:27)
[2016-08-01] MEDS: metroNIDAZOLE INJ 500 MG in PREMIX 1 EACH IV SCH ×2 (08:49→21:02)
[2016-08-01] MEDS: LOSARTAN 25 MG TABLET PO SCH (09:15)
[2016-08-01] MEDS: POTASSIUM CHLORIDE 20 MEQ PACK PO SCH ×2 (09:15→21:29)
[2016-08-01] MEDS: CARVEDILOL 12.5 MG TABLET PO SCH ×2 (09:15→21:29)
[2016-08-01] MEDS: AMIODARONE 200 MG TABLET PO SCH ×2 (09:15→21:29)
[2016-08-01] MEDS: PANTOPRAZOLE 40 MG TABLET PO SCH (09:16)
--- NOTE | 2016-08-01 10:07 | Hospitalist Progress Note ---
Assessment and Plan (1) Ileus Status: Acute Assessment and plan: Ileus vs. SBO. General surgery is following. NG tube in place and at intermittent suction. Peripheral nutrition. WBC continues to increase; 15.8. Afebrile. Surgery has ordered CT of abdomen with contrast. Current Visit: Yes (2) Atrial fibrillation with RVR Status: Acute Assessment and plan: Pulse 60. Atrial pacing. Current Visit: No (3) Hypomagnesemia Status: Resolved Current Visit: Yes Hospitalist: Subjective Interval history: Patient seen and examined today. Lying awake in bed and in NAD. NG tube remains in place and to suction. No clinton blood in suction material. She remains on peripheral nutrition. Bowel sounds are present though slightly hypoactive. She was seen by Dr. Noland this morning. He has ordered a CT of the abdomen with contrast to determine ileus vs. SBO. Patient reports no pain and has no new complaints overnight. UA was negative for infection. Will continue to follow recommendations of general surgery. Exam - Constitutional Vitals: Period Temp Pulse Resp BP Sys/Watt Pulse Ox Last 24 Hr 97 F-99.5 F 60-77 14-18 125-183/67-92 90-98 Exam: General appearance: normal weight, no acute distress - Head Head exam: Present: normocephalic, atraumatic - Eye Eye exam: Present: EOMI. Absent: conjunctival injection, nystagmus Pupils: Present: LOVELY, normal accommodation - ENT ENT exam: Present: normal exam, normal external ear exam - Neck Neck exam: Present: normal inspection. Absent: lymphadenopathy, tenderness, thyromegaly - Respiratory Respiratory exam: Present: clear to auscultation bilaterally. Absent: rales, rhonchi, wheezes - Cardiovascular Cardiovascular exam: Present: regular rate and rhythm. Absent: carotid bruit, gallop, rubs - GI/Abdominal GI/Abdominal exam: Present: normal bowel sounds. Absent: ascites, distended, mass - Extremities Exam Extremities exam: Present: normal inspection, normal capillary refill. Absent: edema - Back Exam Back exam: Absent: CVA tenderness (L), CVA tenderness (R) - Neurological Exam Neurological exam: Present: alert, oriented X3, CN II-XII intact - Psychiatric Psychiatric exam: Present: normal affect, normal mood - Skin Skin exam: Present: normal color, warm, dry Results - Labs CBC & BMP: 08/01/16 03:44 08/01/16 03:44 Lab Results: I have reviewed the past 24 hour labs - Diagnostic Findings Procedure: Abdominal x-ray: image reviewed by me, report reviewed by me Quality Measures - VTE Contraindication to Pharmacological VTE Prophylaxis: High Risk of Bleeding
[2016-08-01] MEDS: SODIUM CHLORIDE 0.9% 1,000 ML IV SCH ×2 (11:11→23:32)
[2016-08-01] MEDS: AZTREONAM 1,000 MG in SODIUM CHLORIDE 0.9% 100 ML IV SCH ×2 (11:11→17:34)
[2016-08-01] MEDS: VANCOMYCIN INJ 750 MG in SODIUM CHLORIDE 0.9% 250 ML IV SCH ×2 (11:12→22:35)
[2016-08-01] MEDS: BUDESONIDE/FORMOTEROL 80-4.5 INHALER 6.9 GM INH SCH ×2 (11:12→21:28)
--- NOTE | 2016-08-01 11:33 | CT Report ---
CT abdomen pelvis w con Indication: Small bowel obstruction. Comparison: None. Technique: CT of the abdomen and pelvis was performed following administration of intravenous contrast. The CT examination was performed using one or more of the following dose reduction techniques: Automatic exposure control, adjustment of the mA and kV according to patient size, or iterative reconstruction techniques. Findings: Bilateral pleural effusions are demonstrated. Right-sided pleural effusion measures 2.3 cm in thickness. The left-sided pleural effusion measures 2.6 cm in thickness. Compressive atelectasis of the lower lobes is demonstrated. Cardiac pacemaker is present. NG tube is present which terminates within the stomach. Gallbladder surgically absent. The appearance of the liver and portal vein is unremarkable. The spleen demonstrates multiple punctate calcifications compatible with prior granulomatous disease. No specific abnormality of the pancreas is demonstrated. The adrenal glands as well as kidneys demonstrate no acute findings. Diffuse intimal calcification of the aorta and iliac arteries is demonstrated. The inferior vena cava is unremarkable. Some form of circumferential bariatric device around the GE junction is present. Small bowel loops have decreased in size since comparison study and within the right lower abdomen, there is a moderate length of small bowel but demonstrates prominent mucosal folds and perhaps borderline bowel wall thickening. Significance is uncertain. This could reflect resolving obstruction with residual mucosal edema or infectious/inflammatory process. Diffuse intimal calcification of the aorta and iliac arteries is demonstrated. Small to moderate amount of free fluid is dependently located within the pelvis. Multiple diverticula remain present within the large bowel these appear most numerous within the sigmoid colon. Little interval change in bony structure has occurred. Soft tissues and musculature of the body wall demonstrate no significant abnormalities. Impression: 1. Improved appearance of the small bowel is demonstrated. A segment of small bowel within the lower right abdomen continues to demonstrate prominent mucosal folds and perhaps some areas of bowel wall thickening. No decreased wall enhancement is demonstrated. This may simply reflect some residual mucosal edema or evidence of infection. The appearance is considered nonspecific. 08/01/2016 11:01 AM PROCEDURE INTERPRETED AT [facility] DEPARTMENT OF RADIOLOGY Final Report Signed by: Dr. Shahid Agustin
--- NOTE | 2016-08-01 11:56 | Cardiology Progress Note ---
<Arleth Romero E - Last Filed: 08/01/16 11:33> Assessment and Plan - Time spent with patient Time spent with patient: Less than 30 minutes (1) Sick sinus syndrome due to SA node dysfunction Status: Acute Assessment and plan: She has had pauses and bradycardia arrhythmias. She has appropriate pacemaker function at this time. Current Visit: Yes (2) Bradycardia Status: Acute Assessment and plan: This is now managed with her pacemaker. Current Visit: Yes (3) Paroxysmal atrial fibrillation Status: Chronic Assessment and plan: She is atrial pacing for the majority of the time. She has had no breakthrough dysrhythmia in the last 24 hours. Current Visit: Yes (4) Small bowel obstruction Status: Acute Assessment and plan: General surgery is following. Her SBO was felt to have been resolved but she has had recurrent symptoms and has required placement of her NG tube again. CT abdomen pending. Current Visit: Yes (5) COPD (chronic obstructive pulmonary disease) Status: Chronic Assessment and plan: Breathing comfortably on O2 via NBP. Current Visit: Yes (6) Hypertension Status: Chronic Assessment and plan: Currently well controlled. Has been up and down. Will continue to monitor and treat accordingly. Current Visit: Yes (7) Leukocytosis Status: Acute Assessment and plan: White count has increased today. Current Visit: Yes (8) Former tobacco use Status: Chronic Assessment and plan: Quit in 2013. Current Visit: Yes Cardiology - PN: Subj Interval history: RESISTOR TESTER: NEW PT TO DR. BARRAZA (formerly a [facility] pt) Ms. Ryan is seen lying in bed in no acute distress this morning. Yesterday, she had abdominal distention and had an NG tube placed. She has gone for a CT of her abdomen this morning and is scheduled to receive a PICC line today. From a cardiac standpoint she has done well. She has had no ectopy within the past 24 hours and remains atrial paced currently. Overall, her GI issues seem to be her most significant issues. Exam (Progress Note) - Constitutional Vitals: Period Temp Pulse Resp BP Sys/Watt Pulse Ox Last 24 Hr 97 F-99.5 F 60-77 14-18 125-183/67-92 90-98 Exam: General: Present: Appears Well, No Apparent Distress. Pleasant and cooperative. Appears comfortable. HEENT: Present: PERRL, Normocephaly, atraumatic. Mucus Membranes Moist. No jaundice noted. Conjunctiva moist and clear, sclerae anicteric. NG tube in place to low wall suction. Neck: Present: Supple Neck, Midline Trachea, No Masses, No Bruit, No tenderness Cardiac: Present: Regular rate and Rhythm, No Murmur Lungs: Present: Clear to auscultation bilaterally, diminished breath sounds to bilateral bases. Neuro: Present: Awake, alert, and oriented x3. Moves all extremities well without hemiparesis or paralysis. Grossly Intact. Absent: Resting Tremor, Essential Tremor Abdomen: Present: Soft, Active Bowel Sounds, No Masses, Non-Tender, nondistended. No abdominal bruit or thrill noted. Skin: Present: Clear. Absent: Rash, No skin breakdown. Back: Normal inspection, no vertebral tenderness. Musculoskeletal: Present: No Fluid Collection, No Pain, Normal Range of Motion, Left arm immobilizer in place Extremities: Present: Normal Gait, No Clubbing, No Cyanosis, Upper Extr. Pulses 2+, Lower Extr. Pulses diminished, No edema. Capillary refill less than 3 seconds. Result/EKG - Labs CBC & BMP: 08/01/16 03:44 08/01/16 03:44 Lab Results: I have reviewed the past 24 hour labs Labs: Laboratory Results - last 24 hr 08/01/16 08/01/16 03:44 03:44 WBC 15.8 H RBC 3.99 Hgb 12.7 Hct 36.8 MCV 92.2 MCH 32 MCHC 34.5 RDW 13.3 Plt Count 186 MPV 11.1 Neut % (Auto) 55.7 Lymph % (Auto) 35.8 [place] % (Auto) 4.8 Eos % (Auto) 1.2 Baso % (Auto) 0.8 Neut # (Auto) 8.8 H Lymph # (Auto) 5.7 H [place] # (Auto) 0.8 Eos # (Auto) 0.2 Baso # (Auto) 0.1 Immature Gran % 1.7 Nucleated RBC % 0.0 Immature Gran # 0.27 Nucleated RBCs # 0.00 Sodium 138 Potassium 3.8 Chloride 100 Carbon Dioxide 29 Anion Gap 12.8 BUN 13 Creatinine 0.40 L GFR Calculation 89 BUN/Creatinine Ratio 32.00 H Glucose 98 Calculated Osmolality 274.7 Calcium 7.7 L Magnesium 1.9 Total Bilirubin 1.20 H AST 14 ALT 14 Alkaline Phosphatase 51 Total Protein 4.2 L Albumin 2.2 L Globulin 2.0 L Albumin/Globulin Ratio 1.1 - EKG EKG results: interpreted by me (atrial pacing) Quality Measures - VTE Contraindication to Pharmacological VTE Prophylaxis: High Risk of Bleeding <Nita Bedoya - Last Filed: 08/01/16 16:55> Cardiology - PN: Subj Interval history: I have personally interviewed and evaluated the patient, reviewed the chart and discussed medical decision-making with practitioner Nick. I have read this note and agree with her documentation here in. The pacemaker seems appropriately functioning. She continues with GI distress, abdominal pain predominantly in the right lower quadrant which correlates with an area of abnormality on her CT scan. GI is evaluating the patient. Her cardiac issues are stable. Exam (Progress Note) - Constitutional Vitals: Period Temp Pulse Resp BP Sys/Watt Pulse Ox Last 24 Hr 97 F-98.2 F 60-76 14-20 125-183/69-92 90-98 Result/EKG - Labs CBC & BMP: 08/01/16 03:44 08/01/16 03:44 Labs: Laboratory Results - last 24 hr 08/01/16 08/01/16 08/01/16 03:44 03:44 03:44 WBC 15.8 H RBC 3.99 Hgb 12.7 Hct 36.8 MCV 92.2 MCH 32 MCHC 34.5 RDW 13.3 Plt Count 186 MPV 11.1 Neut % (Auto) 55.7 Lymph % (Auto) 35.8 [place] % (Auto) 4.8 Eos % (Auto) 1.2 Baso % (Auto) 0.8 Neut # (Auto) 8.8 H Lymph # (Auto) 5.7 H [place] # (Auto) 0.8 Eos # (Auto) 0.2 Baso # (Auto) 0.1 Immature Gran % 1.7 Nucleated RBC % 0.0 Immature Gran # 0.27 Nucleated RBCs # 0.00 Sodium 138 Potassium 3.8 Chloride 100 Carbon Dioxide 29 Anion Gap 12.8 BUN 13 Creatinine 0.40 L GFR Calculation 89 BUN/Creatinine Ratio 32.00 H Glucose 98 Calculated Osmolality 274.7 Calcium 7.7 L Magnesium 1.9 Total Bilirubin 1.20 H AST 14 ALT 14 Alkaline Phosphatase 51 C-Reactive Protein 2.60 H Total Protein 4.2 L Albumin 2.2 L Globulin 2.0 L Albumin/Globulin Ratio 1.1
--- NOTE | 2016-08-01 15:02 | Gastrointestinal Consult Note ---
Assessment and Plan (1) Abdominal pain Status: Acute Assessment and plan: 08/01-Two week history of abdominal pain with nausea and vomiting initially resolved during hospital course after findings of small bowel obstruction, now reoccurrence two nights ago following supper. Last endoscopy noted. CT results noted shows improved small bowel obstruction. Plan and addendum to follow by Dr Landry. Current Visit: Yes History of Present Illness Chief complaint: Intractable nausea, vomiting History of present illness: Ms. Ryan is a 81 year old female who presented to the hospital on 07/23 with onset of abdominal pain. Pt reported on admission that the pain started the day before this and was a lower abdominal cramping pain that worsened in severity as the day progressed, worse on the left than the right. She was admitted for further workup at that time. Pt states that she has a history of irritable bowel symptoms at home including episodes of diarrhea and constipation. She states she also has episodes of nausea and vomiting as well but not on a regular basis. She denies any fever or chills associated with the pain. Denies any recent weight loss, melena, hematocheiza. Denies any coffee ground or hemetemesis. She had a CT of abdomen done on admission that showed diverticulosis and recurrent small bowel obstruction with minimal ascites. She had an NG tube placed at that time and had continual improvement with this until it was eventually removed. She did well for a couple of days however she had onset of intractable nausea and vomiting shortly after its removal. The NG tube was then replaced on yesterday with moderate output noted. Pt had a repeat CT scan of abdomen done today which showed improvements in small bowel obstruction with nonspecific findings of right lower abdominal wall thickening. Surgery is following at this time and this felt to be nonsurgical at this time. She has a prior history of appendectomy, hysterectomy, cholecystectomy and section in the past. She has a history of migraine headaches but denies association of her N/V with these. Dr Voss following. WBC also noted to be increased today at 15.8. She is afebrile at this time. She is currently on TPN and had PICC line placement today. Last endoscopy [place] in [address] Logan with narrow colon findings followed by BE with findings of diverticulosis of sigmoid colon. Last EGD 2012 for weight loss with findings of hiatal hernia. She had dual chamber pacemaker placed on 07/28 and cardiology following. Home Medications Medication Instructions Recorded Confirmed Type HYDROcodone/ACETAMIN 7.5-325 1 tablet PO Q4H PRN #20 tablet 03/15/16 07/22/16 Rx [[place] 7.5-325] Carvedilol [Coreg] 12.5 mg PO BID 07/22/16 07/22/16 History Losartan [Cozaar] 25 mg PO BEDTIME 07/22/16 07/22/16 History Allergies Allergy/AdvReac Type Severity Reaction Status Date / Time aspirin Allergy Palpitation Verified 07/22/16 18:29 s levofloxacin [From Levaquin] Allergy HIVES Verified 07/22/16 19:56 Penicillins Allergy UNCONSCIOUS Verified 07/22/16 18:29 Sulfa (Sulfonamide Allergy HIVES Verified 07/22/16 18:29 Antibiotics) Medical,Surgical,& Family Hx - Medical History Cardio: History of: Cardiac Dysrhythmia (history of SVT ), Hypertension, [place] Neurology: History of: Cerebrovascular Accident, Migraine No history of: Seizures HEENT: History of: Eye Problem Respiratory: History of: Bronchitis Gastrointestinal: History of: Diverticulitis/ Diverticulosis, GI Problems ( constipation) Musculoskeletal: History of: Herniated Disk, Musculoskeletal Problems (arthritis ) Other: No history of: Cancer - Surgical History Cardiac Surgeries: Sugical HX of: Cardiac Catheterization Thoracic Surgeries: Patient denies;: Organ Transplant Abdominal Surgeries: Surgical HX of: Appendectomy, Cholecystectomy Reproductive Surgeries: Surgical HX of;: Section, Hysterectomy Orthopedic Surgeries: Surgical HX of;: Orthopedic Surgery - Family History Family History: Reports;: Family Cancer (two sisters (breast cancer)), Family Heart Disease (mother and father), Family Hypertension (mother and father), Family Stroke (mother and father) - Social History Smoking Status: Former smoker Frequency of Alcohol Use: None Type of Drug Use: None 12 point system: reviewed and no additional remarkable complaints except as stated - Constitutional Constitutional: Present: as per HPI - EENT Eyes: Present: as per HPI Ears: Present: as per HPI Nose, mouth and throat: Present: as per HPI - Cardiovascular Cardiovascular: Present: as per HPI - Gastrointestinal Gastrointestinal: Present: as per HPI, abdominal pain, nausea, vomiting - Genitourinary Genitourinary: Present: as per HPI - Musculoskeletal Musculoskeletal: Present: as per HPI - Neurological Neurological: Present: as per HPI - Psychiatric Psychiatric: Present: as per HPI - Endocrine Endocrine: Present: as per HPI - Hematologic/Lymphatic Hematologic/Lymphatic: Present: as per HPI Exam - Constitutional Vitals: Period Temp Pulse Resp BP Sys/Watt Pulse Ox Last 24 Hr 97 F-98.2 F 60-77 14-18 125-183/67-92 90-98 General appearance: normal weight, no acute distress - Head Head exam: Present: normal inspection, normocephalic - Eye Eye exam: Present: other (lids and conjunctiva unremarkable). Absent: scleral icterus - ENT ENT exam: Present: normal exam, normal oropharynx - Neck Neck exam: Present: normal inspection - Respiratory Respiratory exam: Present: clear to auscultation bilaterally. Absent: rales, rhonchi, wheezes - Cardiovascular Cardiovascular exam: Present: regular rate and rhythm. Absent: diastolic murmur , JVD, systolic murmur - GI/Abdominal GI/Abdominal exam: Present: normal bowel sounds, soft. Absent: ascites, distended, mass, organomegaly, tenderness - Extremities Exam Extremities exam: Present: normal inspection, full ROM - Back Exam Back exam: Present: normal inspection - Neurological Exam Neurological exam: Present: alert, oriented X3 - Psychiatric Psychiatric exam: Present: normal affect, normal mood - Skin Skin exam: Present: normal color, warm, dry Results - Labs CBC & BMP: 08/01/16 03:44 08/01/16 03:44 Lab Results: I have reviewed the past 24 hour labs - Diagnostic Findings Procedure: KUB x-ray: report reviewed by me, CT Abdomen and Pelvis: report reviewed by me Quality Measures - VTE Contraindication to Pharmacological VTE Prophylaxis: High Risk of Bleeding
[2016-08-01] MEDS: POTASSIUM CHLORIDE RIDER 10 MEQ in PREMIX 1 EACH IV PRN ×2 (15:25→16:38)
--- NOTE | 2016-08-01 15:33 | Neurology Progress Note ---
Neurology - PN : Subjective Interval history: Patient seems to be doing better at this time however having headaches off and on. It hurts in the bilateral temporal region. Exam (Progress Note) - Constitutional Vitals: Period Temp Pulse Resp BP Sys/Watt Pulse Ox Last 24 Hr 97 F-98.2 F 60-77 14-18 125-183/67-92 90-98 Exam: GENERAL: Patient is in no acute distress. NECK: Neck is supple. There is no JVD. No carotid bruits present. No thyroid masses. CVS: First and second heart sounds are normal. There is no S3 present. Regular rate and rhythm. RESPIRATORY: Lungs are clear to auscultation without any rales or rhonchi. ABDOMEN: Soft and non-tender. Bowel sounds are present. There is no hepatosplenomegaly. EXT: There is no palpable edema. Peripheral pulses are present. Skin: No rashes Central Nervous system: General: Alert, awake and Oriented x 3 Speech: Fluent Comprehension: Intact and normal Facial expressions: Normal Cranial Nerves: CN1/Olfactory: Normal CN II/ Optic: Normal, Visual Mann unreliable CN III, and : LOVELY & EOMI CN V: Normal & intact CN VII: face is symmetric CNVIII: Normal CN XI/X/XI/XII: Intact and Normal Motor: Bulk and Tone is normal. Strength symmetrical Sensory: Grossly intact for all the modalities of PP, LT and temp sense Reflexes: 1+ and symmetrical Cerebellar function: Normal finger to nose and heel to rowland testing. Toes: Equivocal Gait: Not tested Results - Labs CBC & BMP: 08/01/16 03:44 08/01/16 03:44 Assessment and Plan (1) Migraine headache Status: Acute Assessment and plan: Continue current supportive management Try Fioricet 1 tablet every 4 to every 6 as needed Check CRP and ESR Current Visit: Yes Quality Measures - VTE Contraindication to Pharmacological VTE Prophylaxis: High Risk of Bleeding
--- NOTE | 2016-08-01 16:24 | Post Interventional Procedure ---
Pre-op diagnosis: small bowel obstruction, poor/difficult venous access Post-op diagnosis: same Procedure: PICC placement Contrast: none Flouroscopy: 0.3 min Radiologist: Peewee Nicole Anesthesia: local Specimens: none sent Estimated blood loss: minimal (2 mL) Complications: none Condition: stable Description/Findings: Right arm 5 Belgian dual-lumen power PICC line placed via the basilic vein. The catheter is ready for use. Assessment and Plan - Time spent with patient Time spent with patient: Less than 30 minutes
--- NOTE | 2016-08-01 16:28 | Interventional Radiology Rpt ---
IR PICC line insertion, US guide vascular access IR PICC Placement Peripherally-inserted central catheter (PICC) placement using ultrasound and fluoroscopic guidance Ultrasound of the right upper extremity Clinical Information: 81-year-old female with small bowel obstruction and poor/difficult venous access. PICC line is requested. Physician: Dr. Nicole Procedure: The patient was advised of the benefits, risks, and alternatives of the procedure and informed consent was obtained. A time out was performed with verification of the patient's name, MRN, site of procedure, and type of procedure to be performed. The patient was positioned in the supine position on the angiographic table. The site was prepped and draped in the usual sterile fashion. Additionally, maximal sterile barrier technique was employed for the procedure. A grain merchandiser radiograph reveals no relevant abnormality. Ultrasound examination of the right arm demonstrates patent and compressible brachial and basilic veins. The right arm was prepped and draped in the usual sterile fashion. The right basilic vein was again identified. Using ultrasound guidance, a 21 gauge needle was used to access the vein. A permanent ultrasound recording of vascular access was obtained for the patient's record. A 0.018" cope wire was then advanced into the vein. The needle was exchanged for a 5 Emirati peel-away sheath. A 5 Emirati double lumen Bard Solo PICC catheter was measured and trimmed to the 39 cm monica. The PICC line was advanced through the sheath and into the central circulation. The catheter tip was positioned at the cavo-atrial junction. The peel-away sheath was then removed. At the conclusion of the procedure, the catheter was secured in place using a Stat-Lock device. A sterile dressing was applied. The lumens aspirate and flush freely. The catheter is ready for immediate use. The patient tolerated the procedure well and was returned to the PRU in stable condition. EBL: < 5 mL. Complications: None. Fluoroscopy time: 0.3 Total number of images for this study: 2 Conclusion: Successful placement of a 5 Emir[place] double lumen Bard Solo power injectable PICC via the right basilic vein. The catheter is ready for immediate use. PROCEDURE INTERPRETED AT [facility] DEPARTMENT OF RADIOLOGY Final Report Signed by: Peewee Nicole
[2016-08-01] MEDS: AMINO ACIDS/DEXT/LYTES 4.25-5% 2,000 ML IV SCH (17:31)
[2016-08-01] MEDS: ENOXAPARIN 40 MG/0.4 ML SYRINGE SUBCUT SCH (17:34)
[2016-08-01] MEDS: BUTALBITAL/ACETAMIN/CAFFEINE 50-325-40 MG TABLET PO PRN (21:44)
[2016-08-02] MEDS: AZTREONAM 1,000 MG in SODIUM CHLORIDE 0.9% 100 ML IV SCH ×3 (00:07→17:12)
[2016-08-02] MEDS: SODIUM CHLORIDE 0.9% 1,000 ML IV SCH ×2 (01:52→17:13)
[2016-08-02 06:25] LABS: Basophils # 0.1 10*3/uL (0.0-0.2); Eosinophils # 0.3 10*3/uL (0.0-0.87); Hematocrit 34.8 VOL% (35.7-47.0); Immature Granulocytes % 1.7 %; Immature Granulocytes Absolute 0.24 #; Lymphocytes # 5.8 10*3/uL (1.4-4.0); Mean Corpuscular HGB Conc 34.5 GM/DL (32-36); Mean Corpuscular Hemoglobin 32 PG (27-34); Mean Corpuscular Volume 91.3 FL (87-102); Mean Platelet Volume 10.6 FL (9.6-12.0); Monocytes # 0.8 10*3/uL (0.11-0.8); Monocytes % 5.5 % (1.7-12.7); Neutrophils # 6.6 10*3/uL (1.4-7.4); Neutrophils % 47.8 % (38.7-73.9); Platelet Count 170 T/CUMM (130-400); Red Blood Count 3.81 MC/CUMM (3.8-5.5); Red Cell Distribution Width 13.3 % (9.3-17.3); White Blood Count 13.9 T/CUMM (4-12)
--- NOTE | 2016-08-02 07:02 | General Surgery Progress Note ---
Assessment and Plan (1) Small bowel obstruction Status: Acute Assessment and plan: She has a small bowel obstruction likely secondary to intra-abdominal adhesions. I reviewed her CT scan and she has a patent superior mesenteric artery and I think it would be unlikely that she has ischemic bowel. She has nothing that shows acidosis or signs of ischemia on her lab work. Her white blood cell count is a little bit elevated. Patient states she recently has had a urinary tract infection recently had an upper respiratory infection. We will check follow-up lab work. I'm going to treat her with IV fluids and nasogastric suction for now. I explained to her that if her small bowel obstruction does not resolve with this conservative treatment and we may need to look at surgery. 07/24: She denies any abdominal pain this morning. Her abdomen seems less distended and is not tender at all. During the night she went into atrial fibrillation with a rapid ventricular response is a question whether or not there was a cardiac event. She is moved to the CCU in her right has been managed by Hospital medicine and cardiology has been consulted. There is also question of developing pneumonia in her right lower lobe. She is on IV antibiotics. His may be the source of her elevated white blood cell count. It appears that her small bowel obstruction is responding to conservative treatment. Certainly we would like to avoid surgery if possible in this patient with multiple other medical issues. 07/25: She feels better from an abdominal standpoint. She is not having chest pain or shortness of breath. She denies any abdominal pain and is had some flatus. She still has some nasogastric output. I will keep her nasogastric tube today. I am okay with her going to the floor if it is okay with cardiology. I will leave it up to them since she did have a cardioversion yesterday. Hopefully we can avoid surgical intervention on her abdomen appears to be improving. 07/26: She has no abdominal complaints this morning. It appears that her small bowel obstruction is resolved. We will discontinue her nasogastric tube. She apparently had another episode of rapid ventricular rate yesterday. I will leave it up to the medical service as to when she is ready to be moved out of the ICU. 07/27: She has no abdominal complaints this morning and feels like her abdomen is back to its baseline. She is had sips of liquids which gone okay and she is passing some flatus. Appears that her small bowel obstructions resolved. We' ll put her on a soft diet today. She understands that should if she shows further signs of bowel obstruction that she will probably need operative treatment but I think that her bowel obstruction has probably resolved with conservative treatment. 07/28: This note is a late entry. I actually saw the patient early this morning. Patient has had episodes of bradycardia and is planned for a pacemaker today. She had some nausea and vomiting yesterday. She is not having abdominal cramping or abdominal pain. We will check an abdominal x-ray. It is unclear if her small bowel obstruction is resolving. She is a very poor surgical candidate unfortunately. We may have no choice but to operate if this has not resolved. 07/29: Her abdomen looks and feels better to her. She had an enema yesterday and may have had an element of impaction which is been relieved. She is eating a diet this morning. She is tolerating this fine this morning. She did have some nausea yesterday. I feel like her initial small bowel obstruction problem resolved with conservative treatment would probably have some issues with ileus and constipation. She is eating better but if this does not improve she may need supplemental nutrition. 08/01: She feels better since the nasogastric tube was placed. Her abdomen is nontender and nondistended. Her x-ray is more suggestive of an ileus which would be not surprising considering her multiple other comorbidities. It is still unclear whether this is truly an ileus versus bowel obstruction. She is a very poor operative candidate. We will obtain a CT scan with contrast hopefully better delineate this. 08/02: She feels well and has no abdominal pain. It appears that she is having decreased nasogastric output. She is passing flatus and her abdomen appears benign. Her CT scan really did not show an obstructive picture. I think we can look at getting her nasogastric tube out and trying once again to slowly advance her diet. She is on supplemental nutrition Current Visit: Yes (2) Leukocytosis Status: Acute Assessment and plan: It is unclear if this is related to her intra-abdominal process. I'm treating her with IV antibiotics and IV fluids. Current Visit: Yes Subjective Patient reports: Present: feels better, flatus, no bowel movement. Absent: still having pain, nausea, vomiting, shortness of breath Exam - Constitutional Vitals: Period Temp Pulse Resp BP Sys/Watt Pulse Ox Last 24 Hr 97 F-99.3 F 18-70 14-22 122-171/64-81 93-98 General appearance: no acute distress - Head Head exam: Present: normocephalic - Eye Eye exam: Absent: scleral icterus - Respiratory Respiratory exam: Absent: accessory muscle use - GI/Abdominal GI/Abdominal exam: Present: soft. Absent: distended, tenderness, rebound Results - Labs CBC & BMP: 08/02/16 05:54 08/01/16 03:44 Lab Results: I have reviewed the past 24 hour labs - Diagnostic Findings Procedure: CT Abdomen and Pelvis: image reviewed by me, report reviewed by me Quality Measures - VTE Contraindication to Pharmacological VTE Prophylaxis: High Risk of Bleeding
[2016-08-02 07:09] LABS: Albumin 2.3 G/DL (3.4-5.0); Calcium 7.6 MG/DL (8.5-10.1); Magnesium 2.1 MG/DL (1.8-2.4); Osmolality,Calculated 272.8 MOS/KG (273-304); Potassium 3.7 MMOL/L (3.5-5.1); Total Protein 4.3 G/DL (6.4-8.3)
[2016-08-02] MEDS: LEVALBUTEROL 1.25 MG/3 ML NEB RESP TX SCH ×3 (07:34→23:34)
--- NOTE | 2016-08-02 07:37 | Hospitalist Progress Note ---
Assessment and Plan (1) Small bowel obstruction Status: Acute Assessment and plan: The patient appears to be showing some bowel action and she is anticipated for removal of NG tube. Current Visit: Yes (2) Sick sinus syndrome due to SA node dysfunction Status: Acute Assessment and plan: Discovered on this admission to have recurrent paroxysmal atrial fibrillation with excessive SA pako suppression consistent with sick sinus syndrome. Dual- chamber pacemaker implantation completed 28 July with predominant atrial pacing with intact AV conduction. Current Visit: Yes Hospitalist: Subjective Interval history: 81-year-old female presenting with a small bowel obstruction/ileus. Prolonged NG suction is been required with previous failure to successfully remove the NG tube. During the course of the stay the patient was found to have paroxysmal atrial fibrillation with presumptive underlying sick sinus syndrome with placement of a pacemaker on 28 July. Rhythm strips currently indicate atrial pacing with intact AV conduction. The patient has begun to have the passage of flatus with no stool. Her abdomen is slightly sore in the right mid abdominal region with no emesis. Her vital signs overnight were stable without fever. Exam - Constitutional Vitals: Period Temp Pulse Resp BP Sys/Watt Pulse Ox Last 24 Hr 97 F-99.3 F 18-70 16-22 122-171/64-81 93-97 General appearance: under weight - Respiratory Respiratory exam: Present: clear to auscultation bilaterally. Absent: rales, rhonchi, wheezes - Cardiovascular Cardiovascular exam: Present: regular rate and rhythm. Absent: systolic murmur - GI/Abdominal GI/Abdominal exam: Present: hypoactive bowel sounds, tenderness (Slight palpation tenderness in the right lower quadrant right mid abdominal area) - Extremities Exam Extremities exam: Absent: edema - Neurological Exam Neurological exam: Present: alert, oriented X3 Results - Labs CBC & BMP: 08/02/16 05:54 08/02/16 05:54 Quality Measures - VTE Contraindication to Pharmacological VTE Prophylaxis: High Risk of Bleeding
[2016-08-02] MEDS: AMIODARONE 200 MG TABLET PO SCH ×2 (09:05→21:59)
[2016-08-02] MEDS: PANTOPRAZOLE 40 MG TABLET PO SCH (09:05)
[2016-08-02] MEDS: LOSARTAN 25 MG TABLET PO SCH (09:05)
[2016-08-02] MEDS: POTASSIUM CHLORIDE 20 MEQ PACK PO SCH ×2 (09:05→22:02)
[2016-08-02] MEDS: CARVEDILOL 12.5 MG TABLET PO SCH (09:05)
[2016-08-02] MEDS: metroNIDAZOLE INJ 500 MG in PREMIX 1 EACH IV SCH ×2 (09:06→21:14)
[2016-08-02] MEDS: BUDESONIDE/FORMOTEROL 80-4.5 INHALER 6.9 GM INH SCH ×2 (10:39→22:14)
--- NOTE | 2016-08-02 10:55 | Gastrointestinal Progress Note ---
Assessment and Plan (1) Abdominal pain Status: Acute Assessment and plan: 08/02-Abd pain improved. Passing flatus, hypoactive bowel sounds. To have NG removed today and start clear liquid diet. Plan and addendum to follow by DR Quiroga. 08/01-Two week history of abdominal pain with nausea and vomiting initially resolved during hospital course after findings of small bowel obstruction, now reoccurrence two nights ago following supper. Last endoscopy noted. CT results noted shows improved small bowel obstruction. Plan and addendum to follow by Dr Landry. Current Visit: Yes Gastroenterology - PN: Subj Interval history: CC: Small bowel obstruction Pt is seen, awake and alert, sitting up in chair. States she is feeling better today. She is passing flatus at this time and is having less abdominal discomfort. She denies any nausea at present time. Abdomen is soft, hypoactive bowel sounds noted. She is to have the NG tube removed today and trial clear liquid diet again. She is afebrile. ROS: Denies SOB or chest pain Exam (Progress Note) - Constitutional Vitals: Period Temp Pulse Resp BP Sys/Watt Pulse Ox Last 24 Hr 97.4 F-99.3 F 18-70 16-22 122-171/64-81 93-97 - Other Additional findings: General appearance: normal weight, no acute distress - Head Head exam: Present: normal inspection, normocephalic - Eye Eye exam: Present: other (lids and conjunctiva unremarkable). Absent: scleral icterus - ENT ENT exam: Present: normal exam, normal oropharynx - Neck Neck exam: Present: normal inspection - Respiratory Respiratory exam: Present: clear to auscultation bilaterally. Absent: rales, rhonchi, wheezes - Cardiovascular Cardiovascular exam: Present: regular rate and rhythm. Absent: diastolic murmur , JVD, systolic murmur - GI/Abdominal GI/Abdominal exam: Present: hypoactive bowel sounds, soft. Absent: ascites, distended, mass, organomegaly, tenderness - Extremities Exam Extremities exam: Present: normal inspection, full ROM - Back Exam Back exam: Present: normal inspection - Neurological Exam Neurological exam: Present: alert, oriented X3 - Psychiatric Psychiatric exam: Present: normal affect, normal mood - Skin Skin exam: Present: normal color, warm, dry Results - Labs CBC & BMP: 08/02/16 05:54 08/02/16 05:54 Lab Results: I have reviewed the past 24 hour labs
[2016-08-02] MEDS: VANCOMYCIN INJ 750 MG in SODIUM CHLORIDE 0.9% 250 ML IV SCH ×2 (11:32→22:23)
[2016-08-02] MEDS: ENOXAPARIN 40 MG/0.4 ML SYRINGE SUBCUT SCH (11:32)
--- NOTE | 2016-08-02 13:58 | Cardiology Progress Note ---
<Arleth Romero E - Last Filed: 08/02/16 13:38> Assessment and Plan - Time spent with patient Time spent with patient: Less than 30 minutes (1) Sick sinus syndrome due to SA node dysfunction Status: Acute Assessment and plan: She has had pauses and bradycardia arrhythmias. She has appropriate pacemaker function at this time. Current Visit: Yes (2) Bradycardia Status: Acute Assessment and plan: This is now managed with her pacemaker. Current Visit: Yes (3) Paroxysmal atrial fibrillation Status: Chronic Assessment and plan: She is atrial pacing for the majority of the time. She has had no breakthrough dysrhythmia in the last 24 hours. She is on Lovenox for DVT prophylaxis. We will need to monitor for any breakthrough atrial fibrillation. If she has future events, she may require chronic anticoagulation. Will further discuss with Dr. Bedoya. Current Visit: Yes (4) Small bowel obstruction Status: Acute Assessment and plan: General surgery and gastroenterology are following. Her NG tube will be discontinued today and she will be advanced to a clear liquid diet to see how she tolerates. Current Visit: Yes (5) COPD (chronic obstructive pulmonary disease) Status: Chronic Assessment and plan: Breathing comfortably on O2 via NBP. Current Visit: Yes (6) Hypertension Status: Chronic Assessment and plan: Has had multiple elevated blood pressure readings throughout the afternoon yesterday, now with elevated BP at noon. Will increase her Coreg to 25mg PO BID and continue to monitor and treat accordingly. Current Visit: Yes (7) Leukocytosis Status: Acute Assessment and plan: White count has decreased today. Current Visit: Yes (8) Former tobacco use Status: Chronic Assessment and plan: Quit in 2013. 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 Ryan is seen lying in bed in no acute distress this morning. She received PICC line placement yesterday and is now receiving TPN for nutrition. Physical therapy has been working with her and she has been up to the chair this morning for an hour. From a cardiac standpoint, she continues to do well. Her GI issues have been most problematic. She has started passing flatus and is having decreased NG tube output. I believe the plan is to discontinue her NG tube and slowly advance her diet. She is to wear her arm immobilizer continuously until , then may just wear nightly until follow up with her administrative support associate. She continues to be predominantly atrial paced. Until tolerating PO without difficulty, she should continue with Lovenox for DVT prophylaxis. If she has any episodes of breakthrough atrial fibrillation, we may need to discuss placing her on chronic anticoagulation. Will further discuss with Dr. Bedoya and await her recommendations. Exam (Progress Note) - Constitutional Vitals: Period Temp Pulse Resp BP Sys/Watt Pulse Ox Last 24 Hr 97 F-99.3 F 18-70 16-22 122-171/64-81 93-97 Exam: General: Present: Appears Well, No Apparent Distress. Pleasant and cooperative. Appears comfortable. HEENT: Present: PERRL, Normocephaly, atraumatic. Mucus Membranes Moist. No jaundice noted. Conjunctiva moist and clear, sclerae anicteric. NG tube in place to low wall suction. Neck: Present: Supple Neck, Midline Trachea, No Masses, No Bruit, No tenderness Cardiac: Present: Regular rate and Rhythm, No Murmur Lungs: Present: Clear to auscultation bilaterally, diminished breath sounds to bilateral bases. Neuro: Present: Awake, alert, and oriented x3. Moves all extremities well without hemiparesis or paralysis. Grossly Intact. Absent: Resting Tremor, Essential Tremor Abdomen: Present: Soft, Active Bowel Sounds, No Masses, Non-Tender, nondistended. No abdominal bruit or thrill noted. Skin: Present: Clear. Absent: Rash, No skin breakdown. Back: Normal inspection, no vertebral tenderness. Musculoskeletal: Present: No Fluid Collection, No Pain, Normal Range of Motion, Left arm immobilizer in place Extremities: Present: Normal Gait, No Clubbing, No Cyanosis, Upper Extr. Pulses 2+, Lower Extr. Pulses diminished, No edema. Capillary refill less than 3 seconds. Result/EKG - Labs CBC & BMP: 08/02/16 05:54 08/02/16 05:54 Lab Results: I have reviewed the past 24 hour labs Labs: Laboratory Results - last 24 hr 08/01/16 08/01/16 08/02/16 03:44 16:16 05:54 WBC 13.9 H RBC 3.81 Hgb 12.0 Hct 34.8 L MCV 91.3 MCH 32 MCHC 34.5 RDW 13.3 Plt Count 170 MPV 10.6 Neut % (Auto) 47.8 Lymph % (Auto) 42.0 [place] % (Auto) 5.5 Eos % (Auto) 2.0 Baso % (Auto) 1.0 H Neut # (Auto) 6.6 Lymph # (Auto) 5.8 H [place] # (Auto) 0.8 Eos # (Auto) 0.3 Baso # (Auto) 0.1 Immature Gran % 1.7 Nucleated RBC % 0.0 Immature Gran # 0.24 Nucleated RBCs # 0.00 ESR Westergren 23 Sodium Potassium Chloride Carbon Dioxide Anion Gap BUN Creatinine GFR Calculation BUN/Creatinine Ratio Glucose Calculated Osmolality Calcium Magnesium Total Bilirubin AST ALT Alkaline Phosphatase C-Reactive Protein 2.60 H Total Protein Albumin Globulin Albumin/Globulin Ratio 08/02/16 05:54 WBC RBC Hgb Hct MCV MCH MCHC RDW Plt Count MPV Neut % (Auto) Lymph % (Auto) [place] % (Auto) Eos % (Auto) Baso % (Auto) Neut # (Auto) Lymph # (Auto) [place] # (Auto) Eos # (Auto) Baso # (Auto) Immature Gran % Nucleated RBC % Immature Gran # Nucleated RBCs # ESR Westergren Sodium 137 Potassium 3.7 Chloride 99 Carbon Dioxide 29 Anion Gap 12.7 BUN 11 Creatinine 0.40 L GFR Calculation 86 BUN/Creatinine Ratio 27.00 H Glucose 115 H Calculated Osmolality 272.8 L Calcium 7.6 L Magnesium 2.1 Total Bilirubin 1.00 AST 18 ALT 16 Alkaline Phosphatase 50 C-Reactive Protein Total Protein 4.3 L Albumin 2.3 L Globulin 2.0 L Albumin/Globulin Ratio 1.1 - EKG EKG results: interpreted by me (atrial pacing with underlying sinus rhythm) Quality Measures - VTE Contraindication to Pharmacological VTE Prophylaxis: High Risk of Bleeding <Nita Bedoya - Last Filed: 08/02/16 14:17> Cardiology - PN: Subj Interval history: I have personally interviewed and evaluated the patient, reviewed the chart and discussed medical decision-making with practitioner Nick. I have read this note and agree with her documentation here in. Exam (Progress Note) - Constitutional Vitals: Period Temp Pulse Resp BP Sys/Watt Pulse Ox Last 24 Hr 97 F-99.3 F 18-70 16-22 122-171/64-81 93-97 Result/EKG - Labs CBC & BMP: 08/02/16 05:54 08/02/16 05:54 Labs: Laboratory Results - last 24 hr 08/01/16 08/01/16 08/02/16 03:44 16:16 05:54 WBC 13.9 H RBC 3.81 Hgb 12.0 Hct 34.8 L MCV 91.3 MCH 32 MCHC 34.5 RDW 13.3 Plt Count 170 MPV 10.6 Neut % (Auto) 47.8 Lymph % (Auto) 42.0 [place] % (Auto) 5.5 Eos % (Auto) 2.0 Baso % (Auto) 1.0 H Neut # (Auto) 6.6 Lymph # (Auto) 5.8 H [place] # (Auto) 0.8 Eos # (Auto) 0.3 Baso # (Auto) 0.1 Immature Gran % 1.7 Nucleated RBC % 0.0 Immature Gran # 0.24 Nucleated RBCs # 0.00 ESR Westergren 23 Sodium Potassium Chloride Carbon Dioxide Anion Gap BUN Creatinine GFR Calculation BUN/Creatinine Ratio Glucose Calculated Osmolality Calcium Magnesium Total Bilirubin AST ALT Alkaline Phosphatase C-Reactive Protein 2.60 H Total Protein Albumin Globulin Albumin/Globulin Ratio 08/02/16 05:54 WBC RBC Hgb Hct MCV MCH MCHC RDW Plt Count MPV Neut % (Auto) Lymph % (Auto) [place] % (Auto) Eos % (Auto) Baso % (Auto) Neut # (Auto) Lymph # (Auto) [place] # (Auto) Eos # (Auto) Baso # (Auto) Immature Gran % Nucleated RBC % Immature Gran # Nucleated RBCs # ESR Westergren Sodium 137 Potassium 3.7 Chloride 99 Carbon Dioxide 29 Anion Gap 12.7 BUN 11 Creatinine 0.40 L GFR Calculation 86 BUN/Creatinine Ratio 27.00 H Glucose 115 H Calculated Osmolality 272.8 L Calcium 7.6 L Magnesium 2.1 Total Bilirubin 1.00 AST 18 ALT 16 Alkaline Phosphatase 50 C-Reactive Protein Total Protein 4.3 L Albumin 2.3 L Globulin 2.0 L Albumin/Globulin Ratio 1.1
[2016-08-02] MEDS: AMINO ACIDS/DEXT/LYTES 4.25-5% 2,000 ML IV SCH (17:13)
[2016-08-02] MEDS: CARVEDILOL 25 MG TABLET PO SCH (21:59)
[2016-08-02] MEDS: BUTALBITAL/ACETAMIN/CAFFEINE 50-325-40 MG TABLET PO PRN (22:13)
[2016-08-03] MEDS: AZTREONAM 1,000 MG in SODIUM CHLORIDE 0.9% 100 ML IV SCH ×3 (01:46→17:07)
[2016-08-03] MEDS: SODIUM CHLORIDE 0.9% 1,000 ML IV SCH (06:36)
--- NOTE | 2016-08-03 08:06 | Hospitalist Progress Note ---
Assessment and Plan (1) Small bowel obstruction Status: Acute Assessment and plan: The patient appears to be showing some bowel action. She has tolerated the removal of the NG tube without nausea or vomiting. Current Visit: Yes (2) Sick sinus syndrome due to SA node dysfunction Status: Acute Assessment and plan: Discovered on this admission to have recurrent paroxysmal atrial fibrillation with excessive SA pako suppression consistent with sick sinus syndrome. Dual- chamber pacemaker implantation completed 28 July with predominant atrial pacing with intact AV conduction. Current Visit: Yes Hospitalist: Subjective Interval history: 81-year-old female presented with small bowel obstruction/ileus with prolonged NG suction terminated yesterday. The patient had previously failed discontinuance of the NG tube which seems to be doing well at this time tolerating liquids she is having flatus but no formed bowel movement. Her vital signs are stable and she is afebrile. The patient had a previous history of paroxysmal atrial fibrillation and was found on this occasion to have excessive S-A node suppression following tachycardias. A dual-chamber pacing device was placed on 28 July and his function predominantly is in atrial pacing unit with intact AV conduction. Exam - Constitutional Vitals: Period Temp Pulse Resp BP Sys/Watt Pulse Ox Last 24 Hr 97 F-98.1 F 60-65 16-20 113-158/59-82 95-99 General appearance: under weight - Respiratory Respiratory exam: Present: clear to auscultation bilaterally. Absent: rales, rhonchi, wheezes - Cardiovascular Cardiovascular exam: Present: regular rate and rhythm - GI/Abdominal GI/Abdominal exam: Absent: distended, tenderness - Extremities Exam Extremities exam: Absent: edema - Neurological Exam Neurological exam: Present: alert, oriented X3 Results - Labs CBC & BMP: 08/02/16 05:54 08/02/16 05:54 Quality Measures - VTE Contraindication to Pharmacological VTE Prophylaxis: High Risk of Bleeding
[2016-08-03] MEDS: LEVALBUTEROL 1.25 MG/3 ML NEB RESP TX SCH ×3 (09:16→23:15)
[2016-08-03] MEDS: AMIODARONE 200 MG TABLET PO SCH (09:29)
[2016-08-03] MEDS: PANTOPRAZOLE 40 MG TABLET PO SCH (09:30)
[2016-08-03] MEDS: metroNIDAZOLE INJ 500 MG in PREMIX 1 EACH IV SCH ×2 (09:30→21:47)
[2016-08-03] MEDS: LOSARTAN 25 MG TABLET PO SCH (09:30)
[2016-08-03] MEDS: POTASSIUM CHLORIDE 20 MEQ PACK PO SCH ×2 (09:30→21:47)
[2016-08-03] MEDS: BUTALBITAL/ACETAMIN/CAFFEINE 50-325-40 MG TABLET PO PRN ×2 (09:30→21:47)
[2016-08-03] MEDS: CARVEDILOL 25 MG TABLET PO SCH ×2 (09:30→21:48)
[2016-08-03] MEDS: BUDESONIDE/FORMOTEROL 80-4.5 INHALER 6.9 GM INH SCH ×2 (09:30→21:48)
--- NOTE | 2016-08-03 09:55 | Gastrointestinal Progress Note ---
Assessment and Plan (1) Abdominal pain Status: Acute Assessment and plan: 08/03-No abd pain at present time. Passing increased flatus, no bowel movement at present. Tolerating full liquids. Plan and addendum to follow by Dr Quiroga. 08/02-Abd pain improved. Passing flatus, hypoactive bowel sounds. To have NG removed today and start clear liquid diet. Plan and addendum to follow by DR Quiroga. 08/01-Two week history of abdominal pain with nausea and vomiting initially resolved during hospital course after findings of small bowel obstruction, now reoccurrence two nights ago following supper. Last endoscopy noted. CT results noted shows improved small bowel obstruction. Plan and addendum to follow by Dr Landry. Current Visit: Yes Gastroenterology - PN: Subj Interval history: CC: Small bowel obstruction Pt is seen, awake and alert sitting up in bed. She had her NG tube removed and is tolerating this well. She is having increased flatus and is tolerating a liquid diet, which is to be advanced to soft diet today by hospitalist. She denies any abdominal pain, nausea or vomiting. Abdomen is soft, nontender. She is getting out of bed in the chair and therapy is working with her as well. ROS: Denies SOB or chest pain Exam (Progress Note) - Constitutional Vitals: Period Temp Pulse Resp BP Sys/Watt Pulse Ox Last 24 Hr 97 F-98.1 F 60-65 16-20 113-158/59-82 95-99 General appearance: normal weight, no acute distress - Head Head exam: Present: normal inspection, normocephalic - Eye Eye exam: Present: other (lids and conjunctiva unremarkable). Absent: scleral icterus - ENT ENT exam: Present: normal exam, normal oropharynx - Neck Neck exam: Present: normal inspection - Respiratory Respiratory exam: Present: clear to auscultation bilaterally. Absent: rales, rhonchi, wheezes - Cardiovascular Cardiovascular exam: Present: regular rate and rhythm. Absent: diastolic murmur , JVD, systolic murmur - GI/Abdominal GI/Abdominal exam: Present: normal bowel sounds, soft. Absent: ascites, distended, mass, organomegaly, tenderness - Extremities Exam Extremities exam: Present: normal inspection, full ROM - Back Exam Back exam: Present: normal inspection - Neurological Exam Neurological exam: Present: alert, oriented X3 - Psychiatric Psychiatric exam: Present: normal affect, normal mood - Skin Skin exam: Present: normal color, warm, dry Results - Labs CBC & BMP: 08/02/16 05:54 08/02/16 05:54 Lab Results: I have reviewed the past 24 hour labs
[2016-08-03] MEDS: VANCOMYCIN INJ 750 MG in SODIUM CHLORIDE 0.9% 250 ML IV SCH ×2 (10:45→23:09)
--- NOTE | 2016-08-03 14:56 | Cardiology Progress Note ---
<Arleth Romero E - Last Filed: 08/03/16 14:41> Assessment and Plan - Time spent with patient Time spent with patient: Less than 30 minutes (1) Sick sinus syndrome due to SA node dysfunction Status: Acute Assessment and plan: She has had pauses and bradycardia arrhythmias. She has appropriate pacemaker function at this time. Current Visit: Yes (2) Bradycardia Status: Acute Assessment and plan: This is now managed with her pacemaker. Current Visit: Yes (3) Paroxysmal atrial fibrillation Status: Chronic Assessment and plan: She is atrial pacing for the majority of the time. She has had no breakthrough dysrhythmia in the last 24 hours. She is on Lovenox for DVT prophylaxis. We will need to monitor for any breakthrough atrial fibrillation. If she has future events, she may require chronic anticoagulation. Current Visit: Yes (4) Small bowel obstruction Status: Acute Assessment and plan: General surgery and gastroenterology are following. Her diet has been advanced and she is tolerating food without difficultly. She has had a bowel movement today. Current Visit: Yes (5) COPD (chronic obstructive pulmonary disease) Status: Chronic Assessment and plan: Breathing comfortably on O2 via NBP. Current Visit: Yes (6) Hypertension Status: Chronic Assessment and plan: Blood pressure has been up and down. We have adjusted her medications several times. Her coreg has been increased to 25mg PO BID. This seemed to help but she has had an elevated blood pressure reading at noon today. We'll monitor but may need to increase her Cozaar. Current Visit: Yes (7) Leukocytosis Status: Acute Assessment and plan: White count has decreased today. Current Visit: Yes (8) Former tobacco use Status: Chronic Assessment and plan: Quit in 2013. Current Visit: Yes Cardiology - PN: Subj Interval history: [employer]: NEW PT TO DR. BRAND (formerly a [place] pt) Ms. Ryan is looking well today. Her NG tube has been discontinued. She has been tolerating food without difficulty. She reports she has even had a bowel movement today. Her pacemaker site looks good, incision is well approximated without redness, edema, ecchymosis, or drainage. Arm immobilizer is in place and should remain in place until tomorrow. After tomorrow, she can just wear this at bedtime until she follows up with her coil winder repair. When she is discharged, she will need to follow-up with Dr. Brand within 3-4 weeks. Exam (Progress Note) - Constitutional Vitals: Period Temp Pulse Resp BP Sys/Watt Pulse Ox Last 24 Hr 97.3 F-98.1 F 60-69 16-20 113-151/59-82 95-100 Exam: General: Present: Appears Well, No Apparent Distress. Pleasant and cooperative. Appears comfortable. HEENT: Present: PERRL, Normocephaly, atraumatic. Mucus Membranes Moist. No jaundice noted. Conjunctiva moist and clear, sclerae anicteric. Neck: Present: Supple Neck, Midline Trachea, No Masses, No Bruit, No tenderness Cardiac: Present: Regular rate and Rhythm, No Murmur Lungs: Present: Clear to auscultation bilaterally, diminished breath sounds to bilateral bases. Neuro: Present: Awake, alert, and oriented x3. Moves all extremities well without hemiparesis or paralysis. Grossly Intact. Absent: Resting Tremor, Essential Tremor Abdomen: Present: Soft, Active Bowel Sounds, No Masses, Non-Tender, nondistended. No abdominal bruit or thrill noted. Skin: Present: Clear. Surgical incision to left upper chest wall open to air, incision well approximated s redness, edema, ecchymosis, or drainage. Absent: Rash, No skin breakdown. Back: Normal inspection, no vertebral tenderness. Musculoskeletal: Present: No Fluid Collection, No Pain, Normal Range of Motion, Left arm immobilizer in place Extremities: Present: Normal Gait, No Clubbing, No Cyanosis, Upper Extr. Pulses 2+, Lower Extr. Pulses diminished, No edema. Capillary refill less than 3 seconds. Result/EKG - Labs CBC & BMP: 08/02/16 05:54 08/02/16 05:54 Lab Results: I have reviewed the past 24 hour labs Labs: Laboratory Results - last 24 hr 08/02/16 21:27 Vancomycin Trough 7.2 L - EKG EKG results: interpreted by me (atrial pacing with underlying sinus rhythm) Quality Measures - VTE Contraindication to Pharmacological VTE Prophylaxis: High Risk of Bleeding <Nita Bedoya - Last Filed: 08/03/16 17:33> Cardiology - PN: Subj Interval history: I have personally interviewed and evaluated the patient, reviewed the chart and discussed medical decision-making with practitioner Romero. I have read this note and agree with her documentation here in. We are going to decrease her amiodarone to 1 pill daily. Exam (Progress Note) - Constitutional Vitals: Period Temp Pulse Resp BP Sys/Watt Pulse Ox Last 24 Hr 97.3 F-98.4 F 51-69 16-20 113-151/59-90 95-100 Result/EKG - Labs CBC & BMP: 08/02/16 05:54 08/02/16 05:54 Labs: Laboratory Results - last 24 hr 08/02/16 21:27 Vancomycin Trough 7.2 L
[2016-08-03] MEDS: ENOXAPARIN 40 MG/0.4 ML SYRINGE SUBCUT SCH (15:14)
[2016-08-03] MEDS: AMINO ACIDS/DEXT/LYTES 4.25-5% 2,000 ML IV SCH (18:08)
[2016-08-04] MEDS: SODIUM CHLORIDE 0.9% 1,000 ML IV SCH (01:46)
[2016-08-04] MEDS: AZTREONAM 1,000 MG in SODIUM CHLORIDE 0.9% 100 ML IV SCH (01:47)
[2016-08-04] MEDS: LEVALBUTEROL 1.25 MG/3 ML NEB RESP TX SCH ×2 (07:20→15:30)
[2016-08-04] MEDS: metroNIDAZOLE INJ 500 MG in PREMIX 1 EACH IV SCH (08:02)
--- NOTE | 2016-08-04 08:22 | General Surgery Progress Note ---
Assessment and Plan (1) Small bowel obstruction Status: Acute Assessment and plan: She has a small bowel obstruction likely secondary to intra-abdominal adhesions. I reviewed her CT scan and she has a patent superior mesenteric artery and I think it would be unlikely that she has ischemic bowel. She has nothing that shows acidosis or signs of ischemia on her lab work. Her white blood cell count is a little bit elevated. Patient states she recently has had a urinary tract infection recently had an upper respiratory infection. We will check follow-up lab work. I'm going to treat her with IV fluids and nasogastric suction for now. I explained to her that if her small bowel obstruction does not resolve with this conservative treatment and we may need to look at surgery. 07/24: She denies any abdominal pain this morning. Her abdomen seems less distended and is not tender at all. During the night she went into atrial fibrillation with a rapid ventricular response is a question whether or not there was a cardiac event. She is moved to the CCU in her right has been managed by Hospital medicine and cardiology has been consulted. There is also question of developing pneumonia in her right lower lobe. She is on IV antibiotics. His may be the source of her elevated white blood cell count. It appears that her small bowel obstruction is responding to conservative treatment. Certainly we would like to avoid surgery if possible in this patient with multiple other medical issues. 07/25: She feels better from an abdominal standpoint. She is not having chest pain or shortness of breath. She denies any abdominal pain and is had some flatus. She still has some nasogastric output. I will keep her nasogastric tube today. I am okay with her going to the floor if it is okay with cardiology. I will leave it up to them since she did have a cardioversion yesterday. Hopefully we can avoid surgical intervention on her abdomen appears to be improving. 07/26: She has no abdominal complaints this morning. It appears that her small bowel obstruction is resolved. We will discontinue her nasogastric tube. She apparently had another episode of rapid ventricular rate yesterday. I will leave it up to the medical service as to when she is ready to be moved out of the ICU. 07/27: She has no abdominal complaints this morning and feels like her abdomen is back to its baseline. She is had sips of liquids which gone okay and she is passing some flatus. Appears that her small bowel obstructions resolved. We' ll put her on a soft diet today. She understands that should if she shows further signs of bowel obstruction that she will probably need operative treatment but I think that her bowel obstruction has probably resolved with conservative treatment. 07/28: This note is a late entry. I actually saw the patient early this morning. Patient has had episodes of bradycardia and is planned for a pacemaker today. She had some nausea and vomiting yesterday. She is not having abdominal cramping or abdominal pain. We will check an abdominal x-ray. It is unclear if her small bowel obstruction is resolving. She is a very poor surgical candidate unfortunately. We may have no choice but to operate if this has not resolved. 07/29: Her abdomen looks and feels better to her. She had an enema yesterday and may have had an element of impaction which is been relieved. She is eating a diet this morning. She is tolerating this fine this morning. She did have some nausea yesterday. I feel like her initial small bowel obstruction problem resolved with conservative treatment would probably have some issues with ileus and constipation. She is eating better but if this does not improve she may need supplemental nutrition. 08/01: She feels better since the nasogastric tube was placed. Her abdomen is nontender and nondistended. Her x-ray is more suggestive of an ileus which would be not surprising considering her multiple other comorbidities. It is still unclear whether this is truly an ileus versus bowel obstruction. She is a very poor operative candidate. We will obtain a CT scan with contrast hopefully better delineate this. 08/02: She feels well and has no abdominal pain. It appears that she is having decreased nasogastric output. She is passing flatus and her abdomen appears benign. Her CT scan really did not show an obstructive picture. I think we can look at getting her nasogastric tube out and trying once again to slowly advance her diet. She is on supplemental nutrition 08/04: I saw pt yesterday but somehow my note didnt get entered. Advanced diet which is tolerated well. No pain. No nausea. I noticed pt is on antibiotics. I do not know why. I am not aware of any infection. Will stop antibiotics. DC TPN. Should be OK for swing bed. Will check labs. Current Visit: Yes (2) Leukocytosis Status: Acute Assessment and plan: It is unclear if this is related to her intra-abdominal process. I'm treating her with IV antibiotics and IV fluids. Current Visit: Yes Subjective Patient reports: Present: feels better, tolerating a regular diet, flatus, bowel movement. Absent: still having pain, nausea, vomiting, shortness of breath, fever Exam - Constitutional Vitals: Period Temp Pulse Resp BP Sys/Watt Pulse Ox Last 24 Hr 97.4 F-98.7 F 51-69 16-20 101-151/52-90 95-100 General appearance: no acute distress - Head Head exam: Present: normocephalic - Eye Eye exam: Absent: scleral icterus - ENT Mouth exam: Present: normal voice - Neck Neck exam: Present: trachea midline - Respiratory Respiratory exam: Absent: accessory muscle use - GI/Abdominal GI/Abdominal exam: Present: normal bowel sounds, soft. Absent: distended, tenderness, rebound - Neurological Exam Neurological exam: Present: alert, oriented X3 Results - Labs CBC & BMP: 08/02/16 05:54 08/02/16 05:54 Quality Measures - VTE Contraindication to Pharmacological VTE Prophylaxis: High Risk of Bleeding
--- NOTE | 2016-08-04 08:44 | Hospitalist Progress Note ---
Assessment and Plan (1) Small bowel obstruction Status: Acute Assessment and plan: She has tolerated the removal of the NG tube without nausea or vomiting. Current Visit: Yes (2) Sick sinus syndrome due to SA node dysfunction Status: Acute Assessment and plan: Discovered on this admission to have recurrent paroxysmal atrial fibrillation with excessive SA pako suppression consistent with sick sinus syndrome. Dual- chamber pacemaker implantation completed 28 July with predominant atrial pacing with intact AV conduction. Current Visit: Yes Hospitalist: Subjective Interval history: 81-year-old female presented with small bowel obstruction/ileus with prolonged NG suction which was terminated on the . She has now been advanced to solid food and is tolerating this. While hospitalized the patient was found to have sick sinus pattern with history of paroxysmal atrial fibrillation and prolonged SA pako suppression following tachycardias identified on this hospital stay. She underwent a dual-chamber pacemaker implantation and has been atrially paced with intact AV conduction subsequently. She is anticipated for rehab placement given her prolonged hospital stay and associated weakness. Exam - Constitutional Vitals: Period Temp Pulse Resp BP Sys/Watt Pulse Ox Last 24 Hr 97.4 F-98.7 F 51-69 16-20 101-151/52-90 95-100 General appearance: under weight - Respiratory Respiratory exam: Present: clear to auscultation bilaterally. Absent: rales, rhonchi, wheezes - Cardiovascular Cardiovascular exam: Present: regular rate and rhythm - GI/Abdominal GI/Abdominal exam: Present: normal bowel sounds. Absent: distended, tenderness - Extremities Exam Extremities exam: Absent: edema - Neurological Exam Neurological exam: Present: alert, oriented X3 Results - Labs CBC & BMP: 08/02/16 05:54 08/02/16 05:54 Quality Measures - VTE Contraindication to Pharmacological VTE Prophylaxis: High Risk of Bleeding
[2016-08-04] MEDS: LOSARTAN 25 MG TABLET PO SCH (09:12)
[2016-08-04] MEDS: PANTOPRAZOLE 40 MG TABLET PO SCH (09:12)
[2016-08-04] MEDS: AMIODARONE 200 MG TABLET PO SCH (09:12)
[2016-08-04] MEDS: POTASSIUM CHLORIDE 20 MEQ PACK PO SCH ×2 (09:12→20:48)
[2016-08-04] MEDS: CARVEDILOL 25 MG TABLET PO SCH ×2 (09:12→20:48)
[2016-08-04] MEDS: BUDESONIDE/FORMOTEROL 80-4.5 INHALER 6.9 GM INH SCH ×2 (09:15→20:49)
[2016-08-04 09:39] LABS: Basophils # 0.1 10*3/uL (0.0-0.2); Eosinophils # 0.2 10*3/uL (0.0-0.87); Eosinophils % 1.9 % (0.00-10.9); Hematocrit 35.4 VOL% (35.7-47.0); Hemoglobin 12.1 GM/DL (12.0-16.0); Immature Granulocytes % 1.1 %; Immature Granulocytes Absolute 0.13 #; Lymphocytes # 5.9 10*3/uL (1.4-4.0); Lymphocytes % 49.7 % (21.3-54.2); Mean Corpuscular HGB Conc 34.2 GM/DL (32-36); Mean Corpuscular Hemoglobin 32 PG (27-34); Mean Corpuscular Volume 93.7 FL (87-102); Mean Platelet Volume 11.3 FL (9.6-12.0); Monocytes # 0.6 10*3/uL (0.11-0.8); Monocytes % 5.3 % (1.7-12.7); Neutrophils # 4.8 10*3/uL (1.4-7.4); Platelet Count 196 T/CUMM (130-400); Red Blood Count 3.78 MC/CUMM (3.8-5.5); Red Cell Distribution Width 13.5 % (9.3-17.3); White Blood Count 11.8 T/CUMM (4-12)
[2016-08-04 10:12] LABS: Albumin 2.7 G/DL (3.4-5.0); Bilirubin,Total 0.5 MG/DL (0.2-1.0); Calcium 8.1 MG/DL (8.5-10.1); Total Protein 5.1 G/DL (6.4-8.3)
--- NOTE | 2016-08-04 10:12 | Gastrointestinal Progress Note ---
Assessment and Plan (1) Abdominal pain Status: Acute Assessment and plan: 08/04-Abd pain, N/V, resolved. Having good bowel movements. Tolerating soft diet. Plan and addendum to follow by Dr Quiroga. 08/03-No abd pain at present time. Passing increased flatus, no bowel movement at present. Tolerating full liquids. Plan and addendum to follow by Dr Quiroga. 08/02-Abd pain improved. Passing flatus, hypoactive bowel sounds. To have NG removed today and start clear liquid diet. Plan and addendum to follow by DR Quiroga. 08/01-Two week history of abdominal pain with nausea and vomiting initially resolved during hospital course after findings of small bowel obstruction, now reoccurrence two nights ago following supper. Last endoscopy noted. CT results noted shows improved small bowel obstruction. Plan and addendum to follow by Dr Landry. Current Visit: Yes Gastroenterology - PN: Subj Interval history: CC: Abd pain Pt is seen, sitting up in bed with family at side. States she is feeling better today. She is tolerating a regular diet at this time with increasing appetite. She states that she has had no nausea, vomiting. She is having good bowel movements with two on yesterday and one this morning. Abdomen is soft, nontender. Good bowel sounds noted. ROS: Denies SOB or chest pain Exam (Progress Note) - Constitutional Vitals: Period Temp Pulse Resp BP Sys/Watt Pulse Ox Last 24 Hr 97.4 F-98.7 F 51-63 16-18 101-151/52-90 95-100 General appearance: normal weight, no acute distress - Head Head exam: Present: normal inspection, normocephalic - Eye Eye exam: Present: other (lids and conjunctiva unremarakble). Absent: scleral icterus - ENT ENT exam: Present: normal exam, normal oropharynx - Neck Neck exam: Present: normal inspection - Respiratory Respiratory exam: Present: clear to auscultation bilaterally. Absent: rales, rhonchi, wheezes - Cardiovascular Cardiovascular exam: Present: regular rate and rhythm. Absent: diastolic murmur , JVD, systolic murmur - GI/Abdominal GI/Abdominal exam: Present: normal bowel sounds, soft. Absent: ascites, distended, mass, organomegaly, tenderness - Extremities Exam Extremities exam: Present: normal inspection, full ROM - Back Exam Back exam: Present: normal inspection - Neurological Exam Neurological exam: Present: alert, oriented X3 - Psychiatric Psychiatric exam: Present: normal affect, normal mood - Skin Skin exam: Present: normal color, warm, dry Results - Labs CBC & BMP: 08/04/16 09:08 08/02/16 05:54 Lab Results: I have reviewed the past 24 hour labs
[2016-08-04 10:21] LABS: Eosinophils 2 % (0-10); Hypochromasia 1+; Lymphocytes 56 % (20-55); Platelet Estimate Normal; Segmented Neutrophils 41 % (50-85); Total Cells Counted 100
--- NOTE | 2016-08-04 11:00 | Cardiology Progress Note ---
<Arleth Romero E - Last Filed: 08/04/16 11:36> Assessment and Plan - Time spent with patient Time spent with patient: Less than 30 minutes (1) Sick sinus syndrome due to SA node dysfunction Status: Acute Assessment and plan: She has had pauses and bradycardia arrhythmias. She has appropriate pacemaker function at this time. Current Visit: Yes (2) Bradycardia Status: Acute Assessment and plan: This is now managed with her pacemaker. Current Visit: Yes (3) Paroxysmal atrial fibrillation Status: Chronic Assessment and plan: She is atrial pacing for the majority of the time. She has had no breakthrough dysrhythmia. We would ideally like to place her on a daily aspirin, but she reports she is allergic and this causes her heart to race. At this time, we will avoid placing her on chronic anticoagulation and allow this to be addressed at her follow-up appointment with her crew caller. Current Visit: Yes (4) Small bowel obstruction Status: Acute Assessment and plan: General surgery and gastroenterology are following. Her diet has been advanced and she is tolerating food without difficultly. She is having regular bowel movements and her TPN has been discontinued. CM/SS is working on placement at [facility]. Current Visit: Yes (5) COPD (chronic obstructive pulmonary disease) Status: Chronic Current Visit: Yes (6) Hypertension Status: Chronic Assessment and plan: Blood pressure has been up and down. We have adjusted her medications several times. Her coreg has been increased to 25mg PO BID. Blood pressure is currently well controlled on the current therapy. Current Visit: Yes (7) Leukocytosis Status: Acute Assessment and plan: White count is normal today. Current Visit: Yes (8) Former tobacco use Status: Chronic Assessment and plan: Quit in 2013. Current Visit: Yes Cardiology - PN: Subj Interval history: PRACTICE PERFORMANCE MANAGER: NEW PT TO DR. BRAND (formerly a [place] pt) Ms. Ryan continues to improve. She is tolerating food without difficulty her bowels are moving regularly. Physical therapy has been working with her and her strength continues to improve. She does continue to have some weakness. guest services coordinator is attempting to place her in a swing bed unit for further rehabilitation since she lives alone. Left chest wall pacemaker site looks good, incision is well approximated without redness, edema, ecchymosis, or drainage. Arm immobilizer is in place. At discharge, she should follow-up with Dr. Brand within 3-4 weeks. She has been instructed to bring her pacemaker box with her to her follow-up visit. She has not been previously anticoagulated due to her atrial fibrillation. Prior to her hospitalization she had been maintained in normal sinus rhythm with Coreg. Since pacemaker placement, she has had no further episodes of atrial fibrillation and has been covered with Lovenox for DVT prophylaxis. We would ideally like to place her on a baby aspirin until her follow-up appointment with Dr. Brand when her pacemaker can be interrogated and identify any further breakthrough dysrhythmias , however she tells me she is allergic to aspirin and it causes her heart to race every time she takes it. We will allow chronic anticoagulation to be addressed at her follow-up appointment with her crew caller. At this time, she is stable from a cardiac standpoint and we will sign off. Please feel free to reconsult us if we can be of further assistance or if new issues arise. Exam (Progress Note) - Constitutional Vitals: Period Temp Pulse Resp BP Sys/Watt Pulse Ox Last 24 Hr 97.4 F-98.7 F 51-63 16-18 101-151/52-90 95-100 Exam: General: Present: Appears Well, No Apparent Distress. Pleasant and cooperative. Appears comfortable. HEENT: Present: PERRL, Normocephaly, atraumatic. Mucus Membranes Moist. No jaundice noted. Conjunctiva moist and clear, sclerae anicteric. Neck: Present: Supple Neck, Midline Trachea, No Masses, No Bruit, No tenderness Cardiac: Present: Regular rate and Rhythm, No Murmur Lungs: Present: Clear to auscultation bilaterally, diminished breath sounds to bilateral bases. Neuro: Present: Awake, alert, and oriented x3. Moves all extremities well without hemiparesis or paralysis. Grossly Intact. Absent: Resting Tremor, Essential Tremor Abdomen: Present: Soft, Active Bowel Sounds, No Masses, Non-Tender, nondistended. No abdominal bruit or thrill noted. Skin: Present: Clear. Surgical incision to left upper chest wall open to air, incision well approximated s redness, edema, ecchymosis, or drainage. Absent: Rash, No skin breakdown. Back: Normal inspection, no vertebral tenderness. Musculoskeletal: Present: No Fluid Collection, No Pain, Normal Range of Motion, Left arm immobilizer in place Extremities: Present: Normal Gait, No Clubbing, No Cyanosis, Upper Extr. Pulses 2+, Lower Extr. Pulses diminished, No edema. Capillary refill less than 3 seconds. Result/EKG - Labs CBC & BMP: 08/04/16 09:08 08/04/16 09:08 Lab Results: I have reviewed the past 24 hour labs Labs: Laboratory Results - last 24 hr 08/03/16 08/04/16 08/04/16 21:14 09:08 09:08 WBC 11.8 RBC 3.78 L Hgb 12.1 Hct 35.4 L MCV 93.7 MCH 32 MCHC 34.2 RDW 13.5 Plt Count 196 MPV 11.3 Neut % (Auto) 41.0 Lymph % (Auto) 49.7 [place] % (Auto) 5.3 Eos % (Auto) 1.9 Baso % (Auto) 1.0 H Neut # (Auto) 4.8 Lymph # (Auto) 5.9 H [place] # (Auto) 0.6 Eos # (Auto) 0.2 Baso # (Auto) 0.1 Total Counted 100 Immature Gran % 1.1 Nucleated RBC % 0.0 Immature Gran # 0.13 Segmented Neutrophils 41 L Lymphocytes 56 H Monocytes 1 L Eosinophils 2 Nucleated RBCs # 0.00 Platelet Estimate Normal Hypochromasia 1+ Morphology Comment Sodium 136 Potassium 4.0 Chloride 104 Carbon Dioxide 23 Anion Gap 13.0 BUN 12 Creatinine 0.50 L GFR Calculation 81 BUN/Creatinine Ratio 24.00 H Glucose 143 H Calculated Osmolality 273.0 Calcium 8.1 L Total Bilirubin 0.50 AST 26 ALT 22 Alkaline Phosphatase 60 Total Protein 5.1 L Albumin 2.7 L Globulin 2.4 Albumin/Globulin Ratio 1.1 Vancomycin Trough 12.2 - EKG EKG results: interpreted by me (atrial pacing) Quality Measures - VTE Contraindication to Pharmacological VTE Prophylaxis: High Risk of Bleeding Specialty Discharge - Follow Up or Referrals Follow up with: Omar Noland III., MD [Physician] - (as needed) Payam Brand MD [Physician] - (3-4 wks) <Nita Bedoya - Last Filed: 08/04/16 15:13> Cardiology - PN: Subj Interval history: I have personally interviewed and evaluated the patient, reviewed the chart and discussed medical decision-making with practitioner Nick. I have read this note and agree with her documentation here in. Exam (Progress Note) - Constitutional Vitals: Period Temp Pulse Resp BP Sys/Watt Pulse Ox Last 24 Hr 97.4 F-98.7 F 58-69 16-18 101-146/52-90 94-100 Result/EKG - Labs CBC & BMP: 08/04/16 09:08 08/04/16 09:08 Labs: Laboratory Results - last 24 hr 08/03/16 08/04/16 08/04/16 21:14 09:08 09:08 WBC 11.8 RBC 3.78 L Hgb 12.1 Hct 35.4 L MCV 93.7 MCH 32 MCHC 34.2 RDW 13.5 Plt Count 196 MPV 11.3 Neut % (Auto) 41.0 Lymph % (Auto) 49.7 [place] % (Auto) 5.3 Eos % (Auto) 1.9 Baso % (Auto) 1.0 H Neut # (Auto) 4.8 Lymph # (Auto) 5.9 H [place] # (Auto) 0.6 Eos # (Auto) 0.2 Baso # (Auto) 0.1 Total Counted 100 Immature Gran % 1.1 Nucleated RBC % 0.0 Immature Gran # 0.13 Segmented Neutrophils 41 L Lymphocytes 56 H Monocytes 1 L Eosinophils 2 Nucleated RBCs # 0.00 Platelet Estimate Normal Hypochromasia 1+ Morphology Comment Sodium 136 Potassium 4.0 Chloride 104 Carbon Dioxide 23 Anion Gap 13.0 BUN 12 Creatinine 0.50 L GFR Calculation 81 BUN/Creatinine Ratio 24.00 H Glucose 143 H Calculated Osmolality 273.0 Calcium 8.1 L Total Bilirubin 0.50 AST 26 ALT 22 Alkaline Phosphatase 60 Total Protein 5.1 L Albumin 2.7 L Globulin 2.4 Albumin/Globulin Ratio 1.1 Vancomycin Trough 12.2
--- NOTE | 2016-08-04 13:15 | Discharge Summary ---
Hospital Course - Hospital Course Hospital Course: Patient is an 81-year-old female who was admitted with small bowel obstruction. She developed medical complications as below and was poor surgical candidate so conservative mgmt was pursued. She initially responded well, but as we began to advance her diet, she regressed and required replacement of NGT. Repeat CT scan was not convincing for complete SBO. She required supplemental nutrition with regression, but she ultimately responded well to advancing her diet slowly, tolerating soft diet on day of discharge. Gastroenterology consultation: agreed with assessment. No additional interventions recommended. Cardiology consultation: The patient was initially in sinus rhythm but had a history of paroxysmal atrial fibrillation and went into atrial fibrillation shortly after admission. ECHO was performed. She initially converted back to sinus rhythm but I return to [facility] with RVR, and she underwent cardioversion which was unsuccessful. She was ultimately on IV amiodarone at metoprolol and converted back to sinus rhythm. Subsequently, she developed sick sinus syndrome with heart rate 70 to the 30s and symptomatic. A dual chamber pacemaker was placed. Recommendations were to withhold chronic anticoagulation at this time. Follow-up with Dr. orantes in 3-4 weeks. She is wearing her shoulder immobilizer at night until that appointment. Hospitalist consultation: Treated for PNA with leukocytosis with IV abx, and leukocytosis improved - resolved at discharge and antibiotics discontinued. Ultimately, serial CXR performed and ultimately revealed significant improvement with minimal residual atelectasis and effusion bilaterally. Ultimately, the patient was discharged to a swingbed facility in good condition. - Time spent with patient Time with patient DS: Greater than 30 minutes (Chart review. Pt education. Care/ transfer coordination. Medication reconciliation.) Diagnosis - Discharge Diagnosis (1) Leukocytosis Status: Acute (2) Sick sinus syndrome due to SA node dysfunction Status: Acute (3) Small bowel obstruction Status: Acute (4) Paroxysmal atrial fibrillation Status: Chronic (5) Atelectasis of both lungs Status: Acute (6) Hypomagnesemia Status: Resolved (7) Hypokalemia Status: Resolved (8) Hyponatremia Status: Resolved Specialty Discharge - Follow Up or Referrals Follow up with: Omar Noland III., MD [Physician] - (as needed) Payam Brand MD [Physician] - 08/30/16 1:10 pm (3-4 wks) Discharge Plan - Discharge Data Disposition: Disch/Xfer-Ip Rehab Fac Condition at Discharge: Stable Discharge Diet: other (Soft diet x 48 hrs then diet as tolerated. ) Hygiene: may shower - Discharge Medications New Butalbital/Acet/Caff 50-325-40 [Fioricet 50-325-40 mg Tablet] 1 tablet PO Q4H PRN #0 tablet PRN Reason: Headache Carvedilol [Coreg] 25 mg PO BID tablet Losartan [Cozaar] 25 mg PO DAILY tablet Amiodarone Tab [Cordarone Tab] 200 mg PO DAILY tablet Budesonide/Formoterol 80-4.5 [Symbicort 80-4.5] 2 puff INH BID inhaler Continue Losartan [Cozaar] 25 mg PO BEDTIME Discontinued HYDROcodone/ACETAMIN 7.5-325 [[place] 7.5-325] 1 tablet PO Q4H PRN #20 tablet PRN Reason: Pain Moderate (4-7) Carvedilol [Coreg] 12.5 mg PO BID - Follow Up or Referral Follow Up: Omar Noland III., MD [Physician] - (as needed) Payam Brand MD [Physician] - 08/30/16 1:10 pm (3-4 wks) - Forms/Instructions Instructions: Pacemaker (DC), Ileus (DC) Additional Discharge Instructions: Maintain shoulder immobilizer to LUE qhs until f/u with cardiology. Exam - Constitutional Vitals: Period Temp Pulse Resp BP Sys/Watt Pulse Ox Last 24 Hr 97.4 F-98.7 F 51-69 16-18 101-146/52-90 94-100 General appearance: no acute distress - Head Head exam: Present: normal inspection, normocephalic - Eye Eye exam: Absent: conjunctival injection, scleral icterus - Respiratory Respiratory exam: Present: clear to auscultation bilaterally - Cardiovascular Cardiovascular exam: Present: regular rate and rhythm - GI/Abdominal GI/Abdominal exam: Present: normal bowel sounds, soft. Absent: distended, tenderness - Extremities Exam Extremities exam: Present: normal capillary refill. Absent: calf tenderness, edema - Neurological Exam Neurological exam: Present: alert, oriented X3 - Psychiatric Psychiatric exam: Present: normal affect, normal mood - Skin Skin exam: Present: normal color, warm Discharge Results Procedures and tests throughout hospitalization: 1. Echocardiogram 2. Cardioversion 3. Dual chamber pacemaker placement 4. PICC line placement Labs on day of discharge: Labs from last 24 hours 08/04/16 08/04/16 08/03/16 09:08 09:08 21:14 WBC 11.8 RBC 3.78 L Hgb 12.1 Hct 35.4 L MCV 93.7 MCH 32 MCHC 34.2 RDW 13.5 Plt Count 196 MPV 11.3 Neut % (Auto) 41.0 Lymph % (Auto) 49.7 [place] % (Auto) 5.3 Eos % (Auto) 1.9 Baso % (Auto) 1.0 H Neut # (Auto) 4.8 Lymph # (Auto) 5.9 H [place] # (Auto) 0.6 Eos # (Auto) 0.2 Baso # (Auto) 0.1 Total Counted 100 Immature Gran % 1.1 Nucleated RBC % 0.0 Immature Gran # 0.13 Segmented Neutrophils 41 L Lymphocytes 56 H Monocytes 1 L Eosinophils 2 Nucleated RBCs # 0.00 Platelet Estimate Normal Hypochromasia 1+ Morphology Comment Sodium 136 Potassium 4.0 Chloride 104 Carbon Dioxide 23 Anion Gap 13.0 BUN 12 Creatinine 0.50 L GFR Calculation 81 BUN/Creatinine Ratio 24.00 H Glucose 143 H Calculated Osmolality 273.0 Calcium 8.1 L Total Bilirubin 0.50 AST 26 ALT 22 Alkaline Phosphatase 60 Total Protein 5.1 L Albumin 2.7 L Globulin 2.4 Albumin/Globulin Ratio 1.1 Vancomycin Trough 12.2 - Imaging and Cardiology Procedure: Abdominal x-ray: image reviewed by me, report reviewed by me, Chest x -ray: image reviewed by me, report reviewed by me, CT Abdomen and Pelvis: image reviewed by me, report reviewed by me DS: Provider Date of admission: 07/22/16 22:54 Primary care physician: . No PCP Attending physician on admission: Omar Noland III., Consults: 07/23/16 21:24 Consult to Physician [CONS] Routine Comment: afib with rvr, chest pain Consulting Provider: When should Consulting Provider be notified: In am Consult to Specialist Group: Cardiology When should Consulting Provider be notified: In am 07/27/16 12:44 Consult to Physician [CONS] Routine Comment: migraine headache Consulting Provider: Samuel Voss Consult to Specialist Group: Neurology Person Notified: INDY Date Notified: 07/28/16 Time Notified: 08:35 07/28/16 09:24 Consult to Pharmacy [CONS] Routine Reason for Pharmacy Consult: Adjust Meds Renal Funct 07/30/16 09:54 Consult to Physical Therapy [CONS] Routine Reason for Physical Therapy: Evaluate and Treat 08/01/16 08:05 Consult to Pharmacy [CONS] Routine Reason for Pharmacy Consult: Dose/Manage Vancomycin 08/01/16 13:11 Consult to Physician [CONS] Routine Comment: Persistent N/V; no obstruction per Nuzhat Consulting Provider: Trever Quiroga Consult to Specialist Group: Gastroenterology Person Notified: ANDRES Date Notified: 08/01/16 Time Notified: 14:00 Consult Notification Comment: LEFT MESSAGE AT 1400 OF CONSULT Discharging clinician: Jacey Yee PA-C
[2016-08-04] MEDS: ENOXAPARIN 40 MG/0.4 ML SYRINGE SUBCUT SCH (14:20)
[2016-08-04] MEDS: BUTALBITAL/ACETAMIN/CAFFEINE 50-325-40 MG TABLET PO PRN ×2 (14:20→20:53)
--- NOTE | 2016-08-04 17:50 | XRay Report ---
History: Atelectasis. Pleural effusion Date: 08/04/2016 Study: Chest x-ray PA and lateral Comparison exam: Chest x-ray July 31, 2016 The cardiac silhouette is not enlarged. The mediastinal contours are stable. The pulmonary vasculature is not engorged. A left subclavian dual lead transvenous pacemaker is stable in appearance. The right PICC line is unchanged. There is considerably improved aeration in the lung bases. There is only minimal residual subsegmental atelectasis in the right lower lobe. There is mild bilateral pleural effusion which has improved. Scattered emphysematous changes are noted in the lungs. There is no new or worsening process. Osteopenia. Surgical clips overlie the EG junction and right upper abdomen regions. Impression: Considerably improved aeration in the lung bases compared to the previous study. There is some mild residual right basilar atelectasis, considerably improved. There is mild bilateral pleural effusion, considerably improved. Interval nasogastric tube removal. Interval PICC line placement. Pacemaker as before PROCEDURE INTERPRETED AT [facility] DEPARTMENT OF RADIOLOGY Final Report Signed by: Dr. Rabia Quiroga
[2016-08-05] MEDS: LEVALBUTEROL 1.25 MG/3 ML NEB RESP TX SCH ×2 (01:55→07:16)
--- NOTE | 2016-08-05 08:33 | General Surgery Progress Note ---
Assessment and Plan (1) Small bowel obstruction Status: Acute Assessment and plan: She has a small bowel obstruction likely secondary to intra-abdominal adhesions. I reviewed her CT scan and she has a patent superior mesenteric artery and I think it would be unlikely that she has ischemic bowel. She has nothing that shows acidosis or signs of ischemia on her lab work. Her white blood cell count is a little bit elevated. Patient states she recently has had a urinary tract infection recently had an upper respiratory infection. We will check follow-up lab work. I'm going to treat her with IV fluids and nasogastric suction for now. I explained to her that if her small bowel obstruction does not resolve with this conservative treatment and we may need to look at surgery. 07/24: She denies any abdominal pain this morning. Her abdomen seems less distended and is not tender at all. During the night she went into atrial fibrillation with a rapid ventricular response is a question whether or not there was a cardiac event. She is moved to the CCU in her right has been managed by Hospital medicine and cardiology has been consulted. There is also question of developing pneumonia in her right lower lobe. She is on IV antibiotics. His may be the source of her elevated white blood cell count. It appears that her small bowel obstruction is responding to conservative treatment. Certainly we would like to avoid surgery if possible in this patient with multiple other medical issues. 07/25: She feels better from an abdominal standpoint. She is not having chest pain or shortness of breath. She denies any abdominal pain and is had some flatus. She still has some nasogastric output. I will keep her nasogastric tube today. I am okay with her going to the floor if it is okay with cardiology. I will leave it up to them since she did have a cardioversion yesterday. Hopefully we can avoid surgical intervention on her abdomen appears to be improving. 07/26: She has no abdominal complaints this morning. It appears that her small bowel obstruction is resolved. We will discontinue her nasogastric tube. She apparently had another episode of rapid ventricular rate yesterday. I will leave it up to the medical service as to when she is ready to be moved out of the ICU. 07/27: She has no abdominal complaints this morning and feels like her abdomen is back to its baseline. She is had sips of liquids which gone okay and she is passing some flatus. Appears that her small bowel obstructions resolved. We' ll put her on a soft diet today. She understands that should if she shows further signs of bowel obstruction that she will probably need operative treatment but I think that her bowel obstruction has probably resolved with conservative treatment. 07/28: This note is a late entry. I actually saw the patient early this morning. Patient has had episodes of bradycardia and is planned for a pacemaker today. She had some nausea and vomiting yesterday. She is not having abdominal cramping or abdominal pain. We will check an abdominal x-ray. It is unclear if her small bowel obstruction is resolving. She is a very poor surgical candidate unfortunately. We may have no choice but to operate if this has not resolved. 07/29: Her abdomen looks and feels better to her. She had an enema yesterday and may have had an element of impaction which is been relieved. She is eating a diet this morning. She is tolerating this fine this morning. She did have some nausea yesterday. I feel like her initial small bowel obstruction problem resolved with conservative treatment would probably have some issues with ileus and constipation. She is eating better but if this does not improve she may need supplemental nutrition. 08/01: She feels better since the nasogastric tube was placed. Her abdomen is nontender and nondistended. Her x-ray is more suggestive of an ileus which would be not surprising considering her multiple other comorbidities. It is still unclear whether this is truly an ileus versus bowel obstruction. She is a very poor operative candidate. We will obtain a CT scan with contrast hopefully better delineate this. 08/02: She feels well and has no abdominal pain. It appears that she is having decreased nasogastric output. She is passing flatus and her abdomen appears benign. Her CT scan really did not show an obstructive picture. I think we can look at getting her nasogastric tube out and trying once again to slowly advance her diet. She is on supplemental nutrition 08/04: I saw pt yesterday but somehow my note didnt get entered. Advanced diet which is tolerated well. No pain. No nausea. I noticed pt is on antibiotics. I do not know why. I am not aware of any infection. Will stop antibiotics. DC TPN. Should be OK for swing bed. Will check labs. 08/05: She feels much better. Her small bowel obstruction symptoms have all resolved and she is eating normally and having good bowel function. We are looking at placement in a swing bed. Current Visit: Yes (2) Leukocytosis Status: Acute Assessment and plan: It is unclear if this is related to her intra-abdominal process. I'm treating her with IV antibiotics and IV fluids. Current Visit: Yes Subjective Patient reports: Present: feels better, tolerating a regular diet, flatus, bowel movement. Absent: still having pain, nausea, vomiting Exam - Constitutional Vitals: Period Temp Pulse Resp BP Sys/Watt Pulse Ox Last 24 Hr 97.9 F-99 F 60-69 16-61 116-137/59-70 92-100 General appearance: no acute distress - Eye Eye exam: Absent: scleral icterus - ENT Mouth exam: Present: normal voice - Respiratory Respiratory exam: Absent: accessory muscle use - GI/Abdominal GI/Abdominal exam: Present: soft. Absent: distended, guarding, tenderness, rebound Results - Labs CBC & BMP: 08/04/16 09:08 08/04/16 09:08 Lab Results: I have reviewed the past 24 hour labs Quality Measures - VTE Contraindication to Pharmacological VTE Prophylaxis: High Risk of Bleeding Specialty Discharge - Follow Up or Referrals Follow up with: Omar Noland III., MD [Physician] - (as needed) Payam Brand MD [Physician] - (3-4 wks)
[2016-08-05] MEDS: AMIODARONE 200 MG TABLET PO SCH (09:50)
[2016-08-05] MEDS: LOSARTAN 25 MG TABLET PO SCH (09:50)
[2016-08-05] MEDS: BUDESONIDE/FORMOTEROL 80-4.5 INHALER 6.9 GM INH SCH (09:51)
[2016-08-05] MEDS: POTASSIUM CHLORIDE 20 MEQ PACK PO SCH (09:51)
[2016-08-05] MEDS: CARVEDILOL 25 MG TABLET PO SCH (09:51)
[2016-08-05] MEDS: PANTOPRAZOLE 40 MG TABLET PO SCH (09:51)
[2016-08-05] MEDS: BUTALBITAL/ACETAMIN/CAFFEINE 50-325-40 MG TABLET PO PRN (09:57)
--- NOTE | 2016-08-05 10:02 | Hospitalist Progress Note ---
Assessment and Plan (1) Ileus Status: Acute Assessment and plan: Recovered and tolerating p.o. diet Current Visit: Yes (2) Sick sinus syndrome due to SA node dysfunction Status: Acute Assessment and plan: Status post pacemaker placement followed by the cardiology Current Visit: Yes (3) Paroxysmal atrial fibrillation Status: Chronic Assessment and plan: History of Marlyn kothari on amiodarone. She is not on any anticoagulation will defer to cardiology. Noted card plan to follow-up in clinic to address that Current Visit: Yes (4) Leukocytosis Status: Acute Assessment and plan: Improving WBC count per lab yesterday there is no CBC today. Patient is afebrile Current Visit: Yes Hospitalist: Subjective Interval history: Mr. Ryan is 81-year-old female presented with small bowel obstruction/ileus required prolonged NG suction which was terminated on the . She has now been advanced to solid food and is tolerating this. While hospitalized the patient was found to have sick sinus pattern with history of paroxysmal atrial fibrillation and prolonged SA pako suppression following tachycardias identified on this hospital stay. She underwent a dual-chamber pacemaker implantation and has been atrially paced with intact AV conduction subsequently. She is followed by the cardiology . Patient has no acute complaint today she is able to tolerate food no abdominal pain. Had bowel movement yesterday. She is being discharged today. She was not at the rehab facility but possibly going to swing bed today Exam - Constitutional Vitals: Period Temp Pulse Resp BP Sys/Watt Pulse Ox Last 24 Hr 97.9 F-99 F 60-69 16-61 116-137/59-70 92-100 General appearance: no acute distress - Respiratory Respiratory exam: Present: decreased breath sounds. Absent: rales, rhonchi ( Bilateral equal air entry with decrease sound at the bases) - GI/Abdominal GI/Abdominal exam: Present: normal bowel sounds, soft. Absent: distended, tenderness - Extremities Exam Extremities exam: Absent: edema - Neurological Exam Neurological exam: Present: alert, oriented X3 Results - Labs CBC & BMP: 08/04/16 09:08 08/04/16 09:08 Lab Results: I have reviewed the past 24 hour labs Quality Measures - VTE Contraindication to Pharmacological VTE Prophylaxis: High Risk of Bleeding Specialty Discharge - Follow Up or Referrals Follow up with: Omar Noland III., MD [Physician] - (as needed) Payam Brand MD [Physician] - (3-4 wks)
[2016-08-05 12:20] VITALS: BP 128/56
[2016-08-05] MEDS: ENOXAPARIN 40 MG/0.4 ML SYRINGE SUBCUT SCH (13:56)
== END 2016-08-05 14:00 | disposition swing bed (61) | DRG 389 ==
LOC: EDUNIT# → EDSEX → EDBD → N.ED 18:20 → N.EDINP 22:54 → N.3E 07-23 00:19 → N.CC 07-23 20:39 → N.TELES 07-26 19:14
PROVIDERS: ADMIT Surgery; ATTEND Surgery

== ENCOUNTER 2016-08-21 01:57 | Inpatient (IN) ==
[2016-08-21] MEDS ORDERED: ONDANSETRON 4 MG/2 ML VIAL IV STA (02:50)
[2016-08-21] MEDS ORDERED: SODIUM CHLORIDE 0.9% 1,000 ML IV STA (02:50)
[2016-08-21] MEDS ORDERED: HYDROmorphone 2 MG/1 ML VIAL IV STA (02:50)
[2016-08-21 03:02] LABS: Basophils # 0.1 10*3/uL (0.0-0.2); Basophils % 0.7 % (0.0-0.8); Eosinophils % 0.2 % (0.00-10.9); Hematocrit 44.1 VOL% (35.7-47.0); Hemoglobin 14.7 GM/DL (12.0-16.0); Immature Granulocytes % 0.3 %; Immature Granulocytes Absolute 0.03 #; Lymphocytes # 3.6 10*3/uL (1.4-4.0); Lymphocytes % 35.1 % (21.3-54.2); Mean Corpuscular HGB Conc 33.3 GM/DL (32-36); Mean Corpuscular Hemoglobin 33 PG (27-34); Mean Corpuscular Volume 98.4 FL (87-102); Mean Platelet Volume 10.7 FL (9.6-12.0); Monocytes # 0.3 10*3/uL (0.11-0.8); Monocytes % 2.6 % (1.7-12.7); Neutrophils # 6.3 10*3/uL (1.4-7.4); Neutrophils % 61.1 % (38.7-73.9); Platelet Count 167 T/CUMM (130-400); Red Blood Count 4.48 MC/CUMM (3.8-5.5); Red Cell Distribution Width 14.1 % (9.3-17.3); White Blood Count 10.3 T/CUMM (4-12)
[2016-08-21] MEDS ORDERED: ONDANSETRON 4 MG/2 ML VIAL ONE (03:11)
[2016-08-21] MEDS ORDERED: HYDROmorphone 2 MG/1 ML VIAL ONE (03:11)
[2016-08-21 03:14] LABS: Albumin 3.7 G/DL (3.4-5.0); Bilirubin,Total 0.5 MG/DL (0.2-1.0); Calcium 9.2 MG/DL (8.5-10.1); Potassium 3.9 MMOL/L (3.5-5.1); Total Protein 6.3 G/DL (6.4-8.3)
--- NOTE | 2016-08-21 03:18 | Emergency Department Note ---
IMackenzie Kasabria, am scribing for, and in the presence of, Hoda Gomez DO 02 :52. IJason Debra, DO, personally performed the services described in this documentation, ascribed by Jens Mann in my presence, and it is both accurate and complete 317 . Arrival - Arrival Chief Complaint: Nausea/Vomiting/Diarrhea ED Nursing Triage Note: Patient states that she tried to eat lunch yesterday and began vomiting and has not been able to eat anything since then. Patient has a history of diverticulitis. States that she recently had a pacemaker placed on 07/25/16. Patient received 2.5mg of compazine per EMS. Mode of Arrival: Stretcher Limitations: No Limitations Source: Patient Time Seen by Provider: 08/21/16 02:10 - History of Present Illness HPI Narrative: This is a 81 y/o white female presenting to the ED with c/o nausea, vomiting, and abdominal cramping that onset today after lunch. Pt states she woke up this morning and had her usual breakfast of sausage and biscuit, for lunch she had soup and grilled cheese and this is when the abdominal cramping and vomiting onset. Pt was dx with diverticulitis. She had a pacemaker placed on 07/25/16. She denies fever, chills, diarrhea, back pain, vision change, JC, and dysuria. Her PMHx is consistent with HTN, [place], pacemaker, cerebrovascular accident, and bronchitis. Consistency: constant Severity: moderate Date of Last Menstrual Period: hysterectomy Allergies/Adverse Reactions: Allergies Allergy/AdvReac Type Severity Reaction Status Date / Time aspirin Allergy Palpitation Verified 07/22/16 18:29 s levofloxacin [From Levaquin] Allergy HIVES Verified 07/22/16 19:56 Penicillins Allergy UNCONSCIOUS Verified 07/22/16 18:29 Sulfa (Sulfonamide Allergy HIVES Verified 07/22/16 18:29 Antibiotics) acetaminophen [From Tylenol] AdvReac Intermediate Nausea Verified 08/08/16 10:29 Home Medications: Home Medications Medication Instructions Recorded Confirmed Type Losartan [Cozaar] 25 mg PO BEDTIME 07/22/16 08/05/16 History Amiodarone Tab [Cordarone Tab] 200 mg PO DAILY tablet 08/05/16 08/05/16 Rx Budesonide/Formoterol 80-4.5 2 puff INH BID inhaler 08/05/16 08/05/16 Rx [Symbicort 80-4.5] Butalbital/Acet/Caff 50-325-40 1 tablet PO Q4H PRN #0 tablet 08/05/16 08/05/16 Rx [Fioricet 50-325-40 mg Tablet] Carvedilol [Coreg] 25 mg PO BID tablet 08/05/16 08/05/16 Rx Losartan [Cozaar] 25 mg PO DAILY tablet 08/05/16 08/05/16 Rx Review of System - Review of System 12 point system: reviewed and no additional remarkable complaints except as stated - Review of System Constitutional: Absent: chills, fever, weakness Eyes: Absent: vision change Head/Ears/Nose/Throat: Absent: nasal drainage Respiratory: Absent: cough, wheezing Cardiovascular: Absent: chest pain, dyspnea on exertion Gastrointestinal: Present: abdominal pain, nausea, vomiting. Absent: diarrhea Genitourinary female: Absent: dysuria Musculoskeletal: Absent: arm pain, back pain, leg pain, neck pain Skin: Absent: rash Neurological: Absent: headache, weakness, confusion, vertigo Psychiatric: Absent: anxiety Endocrine: Absent: fatigue Hematological/Lymphatic: Absent: easy bleeding Allergic/Immunologic: Absent: facial swelling Medical,Surgical,& Family Hx - Medical History Cardio: History of: Cardiac Dysrhythmia (history of SVT ), Hypertension, [place], Pacemaker (Dual-chamber) Neurology: History of: Cerebrovascular Accident (1994), Migraine No history of: Seizures HEENT: History of: Eye Problem Respiratory: History of: Bronchitis Gastrointestinal: History of: Diverticulitis/ Diverticulosis, GI Problems ( constipation) Musculoskeletal: History of: Back/Neck Problems (back surgery and neck surgery) , Musculoskeletal Problems (arthritis) Other: No history of: Cancer - Surgical History Cardiac Surgeries: Sugical HX of: Cardiac Catheterization Thoracic Surgeries: Patient denies;: Organ Transplant HEENT Surgeries: Surgical HX of: Eye Surgery (cataracts) Abdominal Surgeries: Surgical HX of: Abdominal Surgery (tumor in right abdomen) , Appendectomy, Cholecystectomy, Colonoscopy, Hernia Repair Reproductive Surgeries: Surgical HX of;: Breast Surgery (tumor removed from left breast), Section (x2), Hysterectomy Orthopedic Surgeries: Surgical HX of;: Orthopedic Surgery (left shoulder, right foot), Total Knee Replacement (left knee) - Family History Family History: Reports;: Family Cancer (two sisters (breast cancer)), Family Heart Disease (mother and father), Family Hypertension (mother and father), Family Stroke (mother and father) - Social History Smoking Status: Former smoker Frequency of Alcohol Use: None Type of Drug Use: None Exam Vital Signs: Vital Signs Temperature 96.8 F L 08/21/16 02:05 Pulse Rate 74 08/21/16 03:19 Respiratory Rate 20 08/21/16 03:19 Blood Pressure 134/74 08/21/16 03:19 O2 Sat by Pulse Oximetry 97 08/21/16 03:19 - General General appearance: alert, in no apparent distress - Head Head exam: Present: atraumatic, normocephalic, normal inspection - Eye Eye exam: Present: normal appearance, PERRL, EOMI - ENT ENT exam: Present: normal exam, normal oropharynx, mucous membranes moist, TM's normal bilaterally, normal external ear exam - Neck Neck exam: Present: normal inspection, full ROM, trachea midline. Absent: tenderness - Chest Chest inspection: Present: normal inspection, symmetric chest wall rise. Absent : tenderness - Respiratory Respiratory exam: Present: normal lung sounds bilaterally - Cardiovascular Cardiovascular exam: Present: regular rate, normal rhythm, normal heart sounds - Abdominal Exam Abdominal exam: Present: soft, tenderness (diffuse ), normal bowel sounds, other (scars consistent with prior surgery ). Absent: distention, guarding - Extremities Exam Extremities exam: Present: normal inspection, full ROM, normal capillary refill. Absent: tenderness, pedal edema, calf tenderness - Back Exam Back exam: Present: normal inspection, full ROM. Absent: tenderness - Neurological Exam Neurological exam: Present: alert, oriented X3, CN II-XII intact, reflexes normal. Absent: normal gait - Psychiatric Psychiatric exam: Present: normal affect, normal mood - Skin Skin exam: Present: warm, dry, intact, normal color. Absent: rash, diaphoresis Course Course Narrative: spoke with Dr Rand who will admit pt. Results - Labs CBC & BMP: 08/21/16 02:46 08/21/16 02:46 Lab Results: I have reviewed the patients labs - Diagnostic Findings Procedure: CT Abdomen and Pelvis: report reviewed by me (high grade small bowel obstruction) Disposition Clinical Impression: Small bowel obstruction Case discussed with: patient, patient's family Disposition: Still a Patient Condition: Stable Time of Disposition: 04:56
[2016-08-21] MEDS ORDERED: diphenhydrAMINE 50 MG/1 ML VIAL ONE (04:26)
[2016-08-21 06:55] LABS: Apearance,Urine Clear (Clear); Bilirubin,Urine Negative (Negative); Glucose,Urine (UA) Negative (Negative); Ketones,Urine Negative (Negative); Nitrite,Urine Negative (Negative); Protein,Urine Negative; Urine Color Yellow (Yellow); Urine Specific Gravity 1.005 (1.001-1.035)
[2016-08-21 06:56] LABS: Urine Urobilinogen 0.2 EU/DL (0.2-1.0)
[2016-08-21] MEDS: DEXTROSE 5% NACL 0.45% 1,000 ML IV SCH ×3 (06:58→22:24)
--- NOTE | 2016-08-21 08:48 | CT Report ---
CT abdomen pelvis Indication: Abdominal pain Comparison: 01 August 2016 Technique: Axial CT imaging of the abdomen and pelvis is performed with intravenous and oral contrast. Contrast dose is 100 cc of Omnipaque 350. No oral contrast was used. Findings: Pleural effusions have improved and nearly completely resolved. Small loculations remain present on the right CT abdomen: The liver spleen pancreas and adrenal glands are normal in size and enhancement. No evidence of focal lesion is demonstrated in these solid organs. Gallbladder is been removed. Kidneys are normal in size and enhancement. No evidence of hydronephrosis or nephrolithiasis is seen. Multiple clips are present from previous surgeries. Gastric ring is present similar to previous exam. Small bowel is distended to a point in the left mid abdomen with focal change in caliber. No wall thickening or adjacent inflammatory change is seen. No evidence of free fluid or free air is present. CT pelvis: Large amount of stool is present in the distal colon. Remaining pelvic bowel appears within normal limits. Bladder shows no evidence of abnormality. The uterus and ovaries are not identified Impression: Distended loops of small bowel with focal change in caliber in the left mid abdomen, likely high-grade obstruction secondary to adhesions. This CT exam was performed using one or more the following dose reduction techniques: Automated exposure control, adjustment of the MA and/or KV according to patient size, or use of iterative reconstruction technique. PROCEDURE INTERPRETED AT [facility] DEPARTMENT OF RADIOLOGY Final Report Signed by: Dr. Kong Marina
[2016-08-21] MEDS: PANTOPRAZOLE 40 MG TABLET PO SCH (08:49)
[2016-08-21] MEDS: HYDROmorphone 2 MG/1 ML VIAL IV PRN ×2 (09:36→19:53)
--- NOTE | 2016-08-21 12:02 | General Surg History&Physical ---
Assessment and Plan (1) Small bowel obstruction Status: Acute Assessment and plan: Impression: Recurrence of small bowel obstruction Plan: CT scan shows high-grade obstruction. There is no evidence of bowel compromise. White blood cell count is normal. She does not have peritoneal signs or an acute abdomen. We will plan to place an NG tube. Dr. Noland will be back tomorrow to resume care. Conservative treatment for now but she may need laparotomy. Current Visit: Yes History of Present Illness Chief complaint: Abdominal pain History of present illness: Ms. Ryan is a 81 year old female who was admitted to me with a diagnosis of small bowel obstruction. I was not informed that this patient recently was hospitalized for the same problem by Dr. Noland. During that hospitalization she required cardiac pacemaker implantation. She responded to conservative treatment and was doing well up until yesterday. She says after she ate a grilled cheese sandwich she began to have pain and distention similar to her previous episode. She had nausea and vomiting yesterday. She has not had any vomiting today but is very nauseous. Her last bowel movement was 2 days ago and she states it was very hard. She has not passed any flatus today. She says her abdomen feels better and is less distended than it was yesterday. Home Medications Medication Instructions Recorded Confirmed Type Amiodarone Tab [Cordarone Tab] 200 mg PO DAILY tablet 08/05/16 08/21/16 Rx Budesonide/Formoterol 80-4.5 2 puff INH BID inhaler 08/05/16 08/21/16 Rx [Symbicort 80-4.5] Butalbital/Acet/Caff 50-325-40 1 tablet PO Q4H PRN #0 tablet 08/05/16 08/21/16 Rx [Fioricet 50-325-40 mg Tablet] Carvedilol [Coreg] 25 mg PO BID tablet 08/05/16 08/21/16 Rx Losartan [Cozaar] 25 mg PO BID 08/21/16 08/21/16 History Allergies Allergy/AdvReac Type Severity Reaction Status Date / Time aspirin Allergy Palpitation Verified 07/22/16 18:29 s levofloxacin [From Levaquin] Allergy HIVES Verified 07/22/16 19:56 Penicillins Allergy UNCONSCIOUS Verified 07/22/16 18:29 Sulfa (Sulfonamide Allergy HIVES Verified 07/22/16 18:29 Antibiotics) acetaminophen [From Tylenol] AdvReac Intermediate Nausea Verified 08/08/16 10:29 Medical,Surgical,& Family Hx - Medical History Cardio: History of: Cardiac Dysrhythmia (history of SVT, A.FIB), Hypertension, [place], Pacemaker (Dual-chamber) Neurology: History of: Cerebrovascular Accident (1994), Migraine No history of: Seizures HEENT: History of: Eye Problem Respiratory: History of: Bronchitis Gastrointestinal: History of: Diverticulitis/ Diverticulosis, GI Problems ( constipation) Musculoskeletal: History of: Back/Neck Problems (back surgery and neck surgery) , Musculoskeletal Problems (arthritis) Other: No history of: Cancer - Surgical History Cardiac Surgeries: Sugical HX of: Cardiac Catheterization Thoracic Surgeries: Patient denies;: Organ Transplant HEENT Surgeries: Surgical HX of: Eye Surgery (cataracts) Abdominal Surgeries: Surgical HX of: Abdominal Surgery (tumor in right abdomen) , Appendectomy, Cholecystectomy, Colonoscopy, Hernia Repair Reproductive Surgeries: Surgical HX of;: Breast Surgery (tumor removed from left breast), Section (x2), Hysterectomy Orthopedic Surgeries: Surgical HX of;: Orthopedic Surgery (left shoulder, right foot), Total Knee Replacement (left knee) - Family History Family History: Reports;: Family Cancer (two sisters (breast cancer)), Family Heart Disease (mother and father), Family Hypertension (mother and father), Family Stroke (mother and father) - Social History Smoking Status: Former smoker Frequency of Alcohol Use: None Type of Drug Use: None Exam - Constitutional Vitals: Period Temp Pulse Resp BP Sys/Watt Pulse Ox Last 24 Hr 97.5 F 61 20 123/66 97 General appearance: no acute distress - Head Head exam: Present: normocephalic - ENT Mouth exam: Present: normal external inspection - Neck Neck exam: Present: normal inspection - Respiratory Respiratory exam: Present: clear to auscultation bilaterally - Cardiovascular Cardiovascular exam: Present: RRR - GI/Abdominal GI/Abdominal exam: Present: soft (Mildly tender throughout with no peritoneal signs. Moderately distended. Soft.) - Back Exam Back exam: Present: normal inspection - Neurological Exam Neurological exam: Present: alert, oriented X3 Speech: Present: normal - Skin Skin exam: Present: normal color 12 point system: reviewed and no additional remarkable complaints except as stated Results - Labs CBC & BMP: 08/21/16 02:46 08/21/16 02:46 Lab Results: I have reviewed the past 24 hour labs
--- NOTE | 2016-08-21 15:43 | Cardiology Consult Note ---
Assessment and Plan (1) Cardiac pacemaker in situ Status: Chronic Assessment and plan: Stable with assessment appears to be functioning properly. We will have interrogated tomorrow. Current Visit: No (2) Sick sinus syndrome due to SA node dysfunction Status: Chronic Assessment and plan: This been a recent problem recurrent atrial fibrillation as well as bradycardia arrhythmias and pauses. This led to requirement of pacemaker. Current Visit: No (3) Hypertension Status: Chronic Assessment and plan: This is fairly stable need to continue to monitor this. Current Visit: No (4) Paroxysmal atrial fibrillation Status: Chronic Assessment and plan: She is doing well with her amiodarone and her pacemaker. Current Visit: No History of Present Illness - Data of Consult Patient: known to practice within the last 3 years Consult date: 08/21/16 Requesting Physician: Sen Hernandez - Consult Narrative Reason for consult: Patient with history of atrial fibrillation and pacemaker History of present illness: Ms. Ryan is a 81 year old female who has been admitted with recurrent bowel obstruction. She is being evaluated the possibility of surgical intervention. She was recently in the hospital about a month ago with this and improved. She went to swing bed and now returns because of bowel obstruction. From cardiac standpoint she has previously been followed by Dr. Scott. She was in the hospital March 2016 With chest pain and atrial fibrillation. She converted to sinus rhythm. Her cardiac enzymes ECGs were otherwise unremarkable. She was again admitted on July 23, 2016 with bowel obstruction and leukocytosis. Her echocardiogram revealed ejection fraction 60% with mild right atrial and moderate left atrial dilation. No significant normality's. She was noted during that hospitalization to be in paroxysmal atrial fibrillation time and was 6 second pauses. She required treatment with amiodarone and because of continued bradycardia and pauses she underwent dual- chamber pacemaker implantation with a Medtronic advisory pacemaker system which is MRI compatible. She is now 3-4 weeks post procedure and is been in the swing bed. She has had no problems with her pacemaker site. Patient is now readmitted with bowel obstruction again. There is question whether surgery be done. We are now asked to see the patient because of her history of atrial fibrillation and pacemaker implantation. She does remain on amiodarone as well as carvedilol and losartan. CC: Sen Hernandez MD - Home Medications and Allergies Home Medications: Home Medications Medication Instructions Recorded Confirmed Type Amiodarone Tab [Cordarone Tab] 200 mg PO DAILY tablet 08/05/16 08/21/16 Rx Budesonide/Formoterol 80-4.5 2 puff INH BID inhaler 08/05/16 08/21/16 Rx [Symbicort 80-4.5] Butalbital/Acet/Caff 50-325-40 1 tablet PO Q4H PRN #0 tablet 08/05/16 08/21/16 Rx [Fioricet 50-325-40 mg Tablet] Carvedilol [Coreg] 25 mg PO BID tablet 08/05/16 08/21/16 Rx Losartan [Cozaar] 25 mg PO BID 08/21/16 08/21/16 History Allergies/Adverse Reactions: Allergies Allergy/AdvReac Type Severity Reaction Status Date / Time aspirin Allergy Palpitation Verified 07/22/16 18:29 s levofloxacin [From Levaquin] Allergy HIVES Verified 07/22/16 19:56 Penicillins Allergy UNCONSCIOUS Verified 07/22/16 18:29 Sulfa (Sulfonamide Allergy HIVES Verified 07/22/16 18:29 Antibiotics) acetaminophen [From Tylenol] AdvReac Intermediate Nausea Verified 08/08/16 10:29 Review of systems: ROS Gen.: No fever or chills. No complaints. HEENT: No headache.No acute visual or auditory changes Lungs: No shortness of breath, wheezing, coughing, hemoptysis. Cardiac: No palpitations, chest pains, dyspnea. GI: Patient now bowel obstructions and symptoms thereof. : No dysuria. Neurologic: No dizziness syncope or near syncope. Skin: No recent rashes. Medical,Surgical,& Family Hx - Medical History Cardio: History of: Cardiac Dysrhythmia (history of SVT, A.FIB), Hypertension, [place], Pacemaker (Dual-chamber) Neurology: History of: Cerebrovascular Accident (1994), Migraine No history of: Seizures HEENT: History of: Eye Problem Respiratory: History of: Bronchitis Gastrointestinal: History of: Diverticulitis/ Diverticulosis, GI Problems ( constipation) Musculoskeletal: History of: Back/Neck Problems (back surgery and neck surgery) , Musculoskeletal Problems (arthritis) Other: No history of: Cancer - Surgical History Cardiac Surgeries: Sugical HX of: Cardiac Catheterization Thoracic Surgeries: Patient denies;: Organ Transplant HEENT Surgeries: Surgical HX of: Eye Surgery (cataracts) Abdominal Surgeries: Surgical HX of: Abdominal Surgery (tumor in right abdomen) , Appendectomy, Cholecystectomy, Colonoscopy, Hernia Repair Reproductive Surgeries: Surgical HX of;: Breast Surgery (tumor removed from left breast), Section (x2), Hysterectomy Orthopedic Surgeries: Surgical HX of;: Orthopedic Surgery (left shoulder, right foot), Total Knee Replacement (left knee) - Family History Family History: Reports;: Family Cancer (two sisters (breast cancer)), Family Heart Disease (mother and father), Family Hypertension (mother and father), Family Stroke (mother and father) - Social History Smoking Status: Former smoker Frequency of Alcohol Use: None Type of Drug Use: None Physical Examination Vital Signs Temp Pulse Resp BP Pulse Ox 96.8 F L 65 17 156/69 98 08/21/16 02:00 08/21/16 02:00 08/21/16 02:00 08/21/16 02:00 08/21/16 02:00 Other: General appearance: Thin almost underweight female, no acute distress HEENT exam: normal inspection, atraumatic Neck exam: normal inspection no JVD. No carotid bruit. Trachea is in midline Respiratory/lungs exam: clear to auscultation bilaterally good air movement. Cardiovascular exam: regular rate and rhythm, no murmur or gallop or rub. No precordial lift. Chest wall exam: nontender, pacemaker site left chest is healed well without any abnormalities. GI/Abdominal exam: normal bowel sounds, soft, nontender, no abdominal bruits or pulsatile masses. Extremeties/musculoskeletal: normal inspection without edema or cyanosis. Neurological exam: alert, oriented X3, no focal deficits Psychiatric exam: normal affect, normal mood. Cognitive function is grossly normal. Skin exam: normal color, warm Result/EKG - Labs CBC & BMP: 08/21/16 02:46 08/21/16 02:46 Lab Results: I have reviewed the past 24 hour labs
--- NOTE | 2016-08-21 16:09 | EKG Report ---
Stationary ECG Study [facility] Test Date: 08/21/2016 4:09:05 PM Pat Name: SHANEL SHORT Department: Room: 338 Gender: F Supplier Relationship Director: LAURA : 1935 Requested by: Ruben Reagan Order Number: [id number] Reading MD: JONH BARRAZA Intervals [place] Rate: 63 P: 237 MO: 231 QRS: -22 QRSD: 93 T: 62 QT: 414 QTc: 422 Interpretive Statements ELECTRONIC ATRIAL PACEMAKER LEFT AXIS DEVIATION Electronically Signed On 08-22-16 16:51:11 CDT by JONH BARRAZA [email or web address]
[2016-08-21] MEDS: ONDANSETRON 4 MG/2 ML VIAL IV PRN (19:53)
[2016-08-22] MEDS: DEXTROSE 5% NACL 0.45% 1,000 ML IV SCH ×3 (06:25→22:45)
--- NOTE | 2016-08-22 07:38 | Cardiology Progress Note ---
Cardiology - PN: Subj Interval history: Cardiology note 81-year-old woman admitted with recurrent small bowel obstruction. Was just here July 2016 with small bowel obstruction. Also had sick sinus syndrome and recurrent paroxysmal atrial fibrillation with long pauses. She required a Medtronic dual-chamber pacemaker and amiodarone No temperature. Abdomen tender No leg edema Regular rhythm no murmur Impression Recurrent small bowel obstruction Status post Medtronic dual-chamber pacemaker for sick sinus syndrome with paroxysmal atrial fibrillation 1 month ago. Now in sinus rhythm on amiodarone Recent echo showed ejection fraction of 60% with moderate dilated left atrium Plan NG suction, IV antibiotics and fluids. Follow abdominal exam closely Exam (Progress Note) - Constitutional Vitals: Period Temp Pulse Resp BP Sys/Watt Pulse Ox Last 24 Hr 97.5 F-99.5 F 61-80 18-20 103-156/52-105 96-100 Result/EKG - Labs CBC & BMP: 08/21/16 02:46 08/21/16 02:46
[2016-08-22 09:27] LABS: Basophils # 0.1 10*3/uL (0.0-0.2); Basophils % 0.8 % (0.0-0.8); Eosinophils # 0.1 10*3/uL (0.0-0.87); Eosinophils % 1.1 % (0.00-10.9); Hematocrit 36.9 VOL% (35.7-47.0); Immature Granulocytes % 0.2 %; Immature Granulocytes Absolute 0.02 #; Lymphocytes # 4.6 10*3/uL (1.4-4.0); Lymphocytes % 47.9 % (21.3-54.2); Mean Corpuscular HGB Conc 33.6 GM/DL (32-36); Mean Corpuscular Hemoglobin 33 PG (27-34); Mean Corpuscular Volume 97.6 FL (87-102); Mean Platelet Volume 11.3 FL (9.6-12.0); Monocytes # 0.5 10*3/uL (0.11-0.8); Monocytes % 5.5 % (1.7-12.7); Neutrophils # 4.2 10*3/uL (1.4-7.4); Neutrophils % 44.5 % (38.7-73.9); Red Blood Count 3.78 MC/CUMM (3.8-5.5); Red Cell Distribution Width 13.9 % (9.3-17.3); White Blood Count 9.5 T/CUMM (4-12)
[2016-08-22 09:29] LABS: Hemoglobin 12.4 GM/DL (12.0-16.0); Platelet Count 126 T/CUMM (130-400)
[2016-08-22] MEDS: HYDROmorphone 2 MG/1 ML VIAL IV PRN ×2 (10:31→18:23)
[2016-08-22] MEDS: PANTOPRAZOLE 40 MG TABLET PO SCH (10:41)
[2016-08-23] MEDS: HYDROmorphone 2 MG/1 ML VIAL IV PRN ×3 (04:24→22:04)
[2016-08-23] MEDS: DEXTROSE 5% NACL 0.45% 1,000 ML IV SCH ×3 (06:22→22:16)
--- NOTE | 2016-08-23 09:09 | Cardiology Progress Note ---
ITr April, RN, am scribing for, and in the presence of, Payam Brand MD 09:09. Assessment and Plan (1) Small bowel obstruction Status: Acute Current Visit: Yes (2) Cardiac pacemaker in situ Status: Chronic Current Visit: Yes Cardiology - PN: Subj Interval history: Cardiology note Testicles an 81-year-old male admitted with small bowel obstruction. She has a history of sick sinus syndrome and recurrent paroxysmal atrial fibrillation with long pauses. She denies chest pain, shortness of breath, palpitations, or dizziness. She has an NG tube and reports to still have abdominal tenderness, mostly on the right side. O2 sat 98% Blood pressure 160/86 Lab data: White count 9.5 hemoglobin 12.4 hematocrit 36.9 Platelet count 126 Impression: Recurrent bowel obstruction Status post Medtronic dual-chamber pacemaker for sick sinus syndrome with paroxysmal atrial fibrillation 1 month ago Now in sinus rhythm Recent echo showed ejection fraction of 60% with moderate dilated left atrium cardiology addendum Patient examined chart reviewed and discussed with nurse Natasha Armando RN. No temperature. Abdomen a little softer today but no flatus Blood pressure 146/80 O2 sat 98% on 2 L Pulse 70 and regular Regular rhythm no gallop Clear lungs Mildly tender abdomen No leg edema Plan Continue IV antibiotics, fluids and NG suction Exam (Progress Note) - Constitutional Vitals: Period Temp Pulse Resp BP Sys/Watt Pulse Ox Last 24 Hr 97.5 F-98.5 F 60-73 18-18 138-160/65-86 95-100 General appearance: no acute distress, under weight - Head Head exam: Absent: abrasion, hematoma - Eye Eye exam: Absent: periorbital swelling, laceration to eyelids - ENT ENT exam: Present: other (NG tube) - Respiratory Respiratory exam: Present: clear to auscultation bilaterally. Absent: accessory muscle use, chest wall tenderness - GI/Abdominal GI/Abdominal exam: Present: normal bowel sounds, firm, tenderness - Extremities Exam Extremities exam: Absent: edema - Neurological Exam Neurological exam: Present: alert, oriented X3 - Psychiatric Psychiatric exam: Present: normal affect, normal mood - Skin Skin exam: Present: warm, dry Result/EKG - Labs CBC & BMP: 08/22/16 08:41 08/21/16 02:46 Lab Results: I have reviewed the past 24 hour labs Labs: Laboratory Results - last 24 hr 08/22/16 08:41 WBC 9.5 RBC 3.78 L Hgb 12.4 D Hct 36.9 MCV 97.6 MCH 33 MCHC 33.6 RDW 13.9 Plt Count 126 L D MPV 11.3 Neut % (Auto) 44.5 Lymph % (Auto) 47.9 [place] % (Auto) 5.5 Eos % (Auto) 1.1 Baso % (Auto) 0.8 Neut # (Auto) 4.2 Lymph # (Auto) 4.6 H [place] # (Auto) 0.5 Eos # (Auto) 0.1 Baso # (Auto) 0.1 Immature Gran % 0.2 Nucleated RBC % 0.0 Immature Gran # 0.02 Nucleated RBCs # 0.00 - EKG EKG results: interpreted by me EKG shows: sinus rhythm (Pacing) Cathie Richardson Thomas, MD, personally performed the services described in this documentation, ascribed by Natasha Armando RN in my presence, and it is both accurate and complete 909 .
[2016-08-23] MEDS: PANTOPRAZOLE 40 MG TABLET PO SCH (10:30)
[2016-08-23] MEDS ORDERED: LOSARTAN 25 MG TABLET PO SCH (12:00)
[2016-08-23] MEDS ORDERED: CARVEDILOL 25 MG TABLET PO SCH (12:00)
--- NOTE | 2016-08-23 12:07 | General Surgery Progress Note ---
Assessment and Plan (1) Small bowel obstruction Status: Acute Assessment and plan: Pt stable. We will continue with current NGT mgmt and monitor output; IVF and pain mgmt. Consider TPN if unable to resume diet in near future. Encouraged mobility and sitting up in chair. Current Visit: Yes (2) COPD (chronic obstructive pulmonary disease) Status: Chronic Assessment and plan: Resume home inhaler. Current Visit: No (3) Paroxysmal atrial fibrillation Status: Chronic Assessment and plan: Cardiology consultation appreciated. Afib s/p PPM placement. Pt has not restarted home meds. I don't think she can tolerate per NGT at this time - will d/w cardiology if need to change home meds to IV or monitor. Current Visit: No (4) Prophylactic measure Status: Acute Assessment and plan: DVT ppx: Mechanical orders placed. Start lovenox. Encourage mobilization. GI ppx: change protonix to IV Current Visit: Yes Subjective Patient reports: Present: still having pain, voiding w/o difficulty, no flatus, no bowel movement, nausea, afebrile. Absent: vomiting, shortness of breath Exam - Constitutional Vitals: Period Temp Pulse Resp BP Sys/Watt Pulse Ox Last 24 Hr 97.5 F-98.7 F 60-75 16-18 138-160/65-86 95-100 General appearance: no acute distress - Head Head exam: Present: normal inspection, normocephalic - Eye Eye exam: Absent: conjunctival injection, scleral icterus - Respiratory Respiratory exam: Present: clear to auscultation bilaterally - Cardiovascular Cardiovascular exam: Present: RRR - GI/Abdominal GI/Abdominal exam: Present: other (Abdomen diffusely tender over lower abdomen without guarding or rigidity; abdomen is soft and nondistended. NGT with bilious output 1250 overnight) - Extremities Exam Extremities exam: Absent: calf tenderness, edema - Neurological Exam Neurological exam: Present: alert, oriented X3 - Skin Skin exam: Present: normal color, warm Results - Labs CBC & BMP: 08/22/16 08:41 08/21/16 02:46
[2016-08-23] MEDS: PANTOPRAZOLE 40 MG VIAL IV SCH (12:10)
[2016-08-23] MEDS: AMIODARONE 200 MG TABLET PO SCH (12:32)
[2016-08-23] MEDS: ENOXAPARIN 40 MG/0.4 ML SYRINGE SUBCUT SCH (12:33)
--- NOTE | 2016-08-23 12:47 | General Surgery Progress Note ---
Assessment and Plan - Time spent with patient Time spent with patient: Less than 30 minutes (1) Small bowel obstruction Status: Acute Assessment and plan: She has small bowel obstruction. I saw the patient yesterday and we elected to proceed on with nonoperative treatment with nasogastric suction again. I discussed the fact that since this is recurrent that she will probably need surgery. Today she still has no bowel movement or flatus but is not having pain. She has decreased NG tube output. I think that she is still obstructed. I have told the patient that I would recommend surgical intervention but she does not want to do this today. She wants to try another day of nonoperative treatment. She understands that I am not optimistic about this resolving without surgery. Current Visit: Yes Subjective Patient reports: Present: feels better, pain is less, no flatus, no bowel movement. Absent: nausea, vomiting, fever Exam - Constitutional Vitals: Period Temp Pulse Resp BP Sys/Watt Pulse Ox Last 24 Hr 97.5 F-98.7 F 60-75 16-18 138-160/65-86 95-100 General appearance: no acute distress - Head Head exam: Present: normocephalic - Eye Eye exam: Absent: scleral icterus - Respiratory Respiratory exam: Absent: accessory muscle use - GI/Abdominal GI/Abdominal exam: Present: hyperactive bowel sounds, soft. Absent: distended, tenderness, rebound Results - Labs CBC & BMP: 08/22/16 08:41 08/21/16 02:46
--- NOTE | 2016-08-23 14:20 | Physician Query Form ---
CLICK EDIT DOCUMENT TO SELECT QUERY ANSWER --> OK --> SIGN Kia Olivares RN Clinical Used Car Manager W) [phone] (f) [phone] [email or web address] PROVIDERS: Make your selection(s) from the choices in EACH section by typing an "x" and enter comments in the comment section. Please use your independent medical judgment in providing your response. This request does not imply that any particular answer is desired or expected. 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 ( ) Malnutrition ( x) mild ( ) moderate ( ) severe ( ) Protein calorie malnutrition ( ) mild ( ) moderate ( ) severe ( ) Emaciation due to malnutrition ( ) Nutritional marasmus ( ) Cachexia ( ) Underweight ( ) No nutritional deficiency ( ) Other, please specify: ( ) Clinically unable to determine Mild Malnutrition (BMI < 18.5, % Normal Body Weight 85-95%) Moderate Malnutrition (BMI < 17, % Normal Body Weight 75-85%) Severe Malnutrition (BMI < 16, % Normal Body Weight < 75%) Source: Kimmy COMMENTS: PLEASE ALSO DOCUMENT RESPONSE IN PROGRESS NOTES AND/OR DISCHARGE SUMMARY Use of terms such as suspected, likely, or probable (associated with a specific diagnosis that is being evaluated, monitored, or treated as if it exists) are acceptable and can be restated in the discharge summary if not ruled out. MTDD
[2016-08-23] MEDS: BUDESONIDE/FORMOTEROL 80-4.5 INHALER 6.9 GM INH SCH ×2 (15:02→20:55)
--- NOTE | 2016-08-23 16:57 | Event Note ---
Patient's has SBO and unable to take medications per NG Tube as she is having high output from NG Tube. She is not receiving Amiodorone or Coreg at this time. Heart rate is controlled. At this time, because she remains in NSR, I will not initiate IV Amiodorone and hopefully SBO will resolve soon. If she returns to atrial fib with uncontrolled, or high rates, will have to restart IV Amiodorone. BP elevated. I will start Lopressor 5mg IV Q 6 hours.
[2016-08-23] MEDS: METOPROLOL TARTRATE 5 MG/5 ML VIAL IV SCH (18:15)
[2016-08-23] MEDS: ONDANSETRON 4 MG/2 ML VIAL IV PRN (22:12)
[2016-08-24] MEDS: METOPROLOL TARTRATE 5 MG/5 ML VIAL IV SCH ×4 (00:16→18:16)
[2016-08-24] MEDS: DEXTROSE 5% NACL 0.45% 1,000 ML IV SCH ×3 (00:19→17:37)
[2016-08-24 07:11] LABS: Basophils # 0.1 10*3/uL (0.0-0.2); Basophils % 0.8 % (0.0-0.8); Eosinophils # 0.1 10*3/uL (0.0-0.87); Eosinophils % 2.3 % (0.00-10.9); Hematocrit 31.3 VOL% (35.7-47.0); Immature Granulocytes % 0.2 %; Immature Granulocytes Absolute 0.01 #; Lymphocytes # 3.3 10*3/uL (1.4-4.0); Lymphocytes % 54.8 % (21.3-54.2); Mean Corpuscular HGB Conc 33.2 GM/DL (32-36); Mean Corpuscular Hemoglobin 32 PG (27-34); Mean Corpuscular Volume 96.9 FL (87-102); Mean Platelet Volume 10.2 FL (9.6-12.0); Monocytes # 0.3 10*3/uL (0.11-0.8); Monocytes % 5.5 % (1.7-12.7); Neutrophils # 2.2 10*3/uL (1.4-7.4); Neutrophils % 36.4 % (38.7-73.9); Platelet Count 111 T/CUMM (130-400); Red Blood Count 3.23 MC/CUMM (3.8-5.5); Red Cell Distribution Width 13.4 % (9.3-17.3)
[2016-08-24 07:19] LABS: Hemoglobin 10.4 GM/DL (12.0-16.0)
--- NOTE | 2016-08-24 07:30 | General Surgery Progress Note ---
Assessment and Plan (1) Small bowel obstruction Status: Acute Assessment and plan: She has small bowel obstruction. I saw the patient yesterday and we elected to proceed on with nonoperative treatment with nasogastric suction again. I discussed the fact that since this is recurrent that she will probably need surgery. Today she still has no bowel movement or flatus but is not having pain. She has decreased NG tube output. I think that she is still obstructed. I have told the patient that I would recommend surgical intervention but she does not want to do this today. She wants to try another day of nonoperative treatment. She understands that I am not optimistic about this resolving without surgery. 08/24/16: She continues to have abdominal pain but states that maybe it feels a little bit better. She is not really distended but has had nasogastric suction for several days. She had one episode of passing flatus a small amount she says but nothing significant. I feel that she is still obstructed which is what I told her yesterday as well. I have discussed laparotomy and lysis of adhesions along with a risk. She understands that her perioperative risk is significant however I do not think that she is going to get better without surgery. The procedure and risks were outlined in detail and she wishes to proceed. We will probably need to monitor her postoperatively in ICU. Current Visit: Yes Subjective Patient reports: Present: feels better, still having pain, no flatus, no bowel movement. Absent: nausea, vomiting Exam - Constitutional Vitals: Period Temp Pulse Resp BP Sys/Watt Pulse Ox Last 24 Hr 97.0 F-98.7 F 60-90 16-20 134-158/65-84 94-99 General appearance: no acute distress - Head Head exam: Present: normocephalic - Eye Eye exam: Absent: scleral icterus - Respiratory Respiratory exam: Absent: accessory muscle use - GI/Abdominal GI/Abdominal exam: Present: tenderness, soft. Absent: distended, rebound - Neurological Exam Neurological exam: Present: alert, oriented X3 Results - Labs CBC & BMP: 08/24/16 07:03 08/21/16 02:46 Lab Results: I have reviewed the past 24 hour labs
[2016-08-24 07:38] LABS: Eosinophils 1 % (0-10); Hypochromasia 1+; Lymphocytes 47 % (20-55); Platelet Estimate Decreased; Segmented Neutrophils 48 % (50-85); Total Cells Counted 100
[2016-08-24 07:47] LABS: Calcium 7.7 MG/DL (8.5-10.1); Potassium 3.1 MMOL/L (3.5-5.1)
[2016-08-24 07:58] LABS: Osmolality,Calculated 277.4 MOS/KG (273-304)
[2016-08-24] MEDS: AMIODARONE 200 MG TABLET PO SCH (08:45)
[2016-08-24] MEDS: BUDESONIDE/FORMOTEROL 80-4.5 INHALER 6.9 GM INH SCH ×2 (08:46→21:44)
[2016-08-24] MEDS: PANTOPRAZOLE 40 MG VIAL IV SCH (08:46)
[2016-08-24] MEDS ORDERED: SODIUM CHLOR 0.9% KCL 40 MEQ 40 MEQ/1,000 ML BAG IV SCH (11:30)
[2016-08-24] MEDS: POTASSIUM CHLORIDE RIDER 10 MEQ in PREMIX 1 EACH IV PRN (12:18)
[2016-08-24] MEDS: ENOXAPARIN 40 MG/0.4 ML SYRINGE SUBCUT SCH (14:30)
--- NOTE | 2016-08-24 15:49 | Operative Note ---
Date of procedure: 08/24/16 Pre-op diagnosis: Small bowel obstruction Post-op diagnosis: same Procedure: Laparotomy with small bowel enteroclysis Findings and technique: After informed consent was obtained the patient was brought to the operating room and placed in supine position. After successful induction of general anesthesia the patient's abdomen was prepped and draped in usual sterile fashion. A midline incision was made through her old scar which was actually situated to the right of the midline. Sharp dissection was carried down into the peritoneal cavity where there were extensive adhesions anteriorly between the bowel and the anterior abdominal wall. These adhesions had to be tediously taken down from the anterior abdominal wall and no enterotomies occurred. A few thin areas in the small bowel were suture repaired with 3-0 silk Lembert sutures. This bowel was freed up from the anterior abdominal wall and none of these ports were the obstructing point. In the mid jejunum there was an adhesive band causing a twisting and partial obstruction of the small bowel. This band was released releasing the obstruction. The bowel downstream from this was all decompressed. She had extensive adhesions throughout her abdomen and I did not lyse everyone of the adhesions but had the majority of her bowel freed up and it was apparent that there was no further obstruction. The bowel was returned to its normal position and the abdomen irrigated and no bleeding noted. Minimal blood loss occurred. The midline fascia was closed with running #1 PDS suture and the skin closed with skin clips. Anesthesia: GETA Surgeon / Physician: Omar Noland III. Estimated blood loss: minimal Specimens: none sent Condition: stable Disposition: PACU Results - Labs CBC & BMP: 08/24/16 07:03 08/24/16 05:04 Discharge Plan - Discharge Medications No Action Butalbital/Acet/Caff 50-325-40 [Fioricet 50-325-40 mg Tablet] 1 tablet PO Q4H PRN #0 tablet PRN Reason: Headache Carvedilol [Coreg] 25 mg PO BID tablet Losartan [Cozaar] 25 mg PO BID Amiodarone Tab [Cordarone Tab] 200 mg PO DAILY tablet Budesonide/Formoterol 80-4.5 [Symbicort 80-4.5] 2 puff INH BID inhaler - Follow Up or Referral - Forms/Instructions
[2016-08-24] MEDS ORDERED: ONDANSETRON 4 MG/2 ML VIAL ONE ×2 (16:04→16:18)
--- NOTE | 2016-08-24 16:06 | Cardiology Progress Note ---
Assessment and Plan (1) Small bowel obstruction Status: Acute Current Visit: Yes (2) Cardiac pacemaker in situ Status: Chronic Current Visit: Yes Cardiology - PN: Subj Interval history: Cardiology note 81-year-old woman with recurrent small bowel obstruction. Underwent laparotomy today with small bowel enteroclysis Blood pressure 126/80 Rhythm is regular and steady O2 sat 97% Impression Status post laparotomy with small bowel enteroclysis today for recurrent small bowel obstruction Status post Medtronic dual-chamber pacemaker for sick sinus syndrome and paroxysmal atrial fibrillation 1 month ago Recent echo showed ejection fraction of 60% with moderate dilated left atrium Plan Wean vent as tolerated Monitor rhythm IV antibiotics Exam (Progress Note) - Constitutional Vitals: Period Temp Pulse Resp BP Sys/Watt Pulse Ox Last 24 Hr 97.0 F-98.6 F 60-90 16-20 134-164/65-84 94-99 Result/EKG - Labs CBC & BMP: 08/24/16 07:03 08/24/16 05:04 Labs: Laboratory Results - last 24 hr 08/24/16 08/24/16 05:04 07:03 WBC 6.0 D RBC 3.23 L Hgb 10.4 L D Hct 31.3 L MCV 96.9 MCH 32 MCHC 33.2 RDW 13.4 Plt Count 111 L MPV 10.2 Neut % (Auto) 36.4 L Lymph % (Auto) 54.8 H [place] % (Auto) 5.5 Eos % (Auto) 2.3 Baso % (Auto) 0.8 Neut # (Auto) 2.2 Lymph # (Auto) 3.3 [place] # (Auto) 0.3 Eos # (Auto) 0.1 Baso # (Auto) 0.1 Total Counted 100 Immature Gran % 0.2 Nucleated RBC % 0.0 Immature Gran # 0.01 Segmented Neutrophils 48 L Lymphocytes 47 Monocytes 4 Eosinophils 1 Nucleated RBCs # 0.00 Platelet Estimate Decreased Hypochromasia 1+ Morphology Comment Sodium 140 Potassium 3.1 L Chloride 103 Carbon Dioxide 28 Anion Gap 12.1 BUN 1 L Creatinine 0.50 L GFR Calculation 78 BUN/Creatinine Ratio 2.00 L Glucose 155 H Calculated Osmolality 277.4 Calcium 7.7 L
[2016-08-24 16:11] LABS: Apearance,Urine CLEAR (Clear); Bilirubin,Urine Negative (Negative); Blood, Urine Moderate mg/dL (Negative); Glucose,Urine (UA) Negative (Negative); Ketones,Urine Negative (Negative); Nitrite,Urine Negative (Negative); Protein,Urine Negative; RBC,Urine 2 /HPF (0-4); Squamous Epithelial Cell,Urine Occasional /HPF (0-10); Urine Color Straw (Yellow); Urine Specific Gravity 1.002 (1.001-1.035); Urine Urobilinogen < 2.0 EU/DL (0.2-1.0); WBC,Urine <1 /HPF (0-6)
[2016-08-24] MEDS ORDERED: fentaNYL 100 MCG/2 ML VIAL ONE (16:16)
[2016-08-24] MEDS ORDERED: SEVOFLURANE 1 UNIT/15 MINUTE INH ONE (16:18)
[2016-08-24] MEDS ORDERED: ETOMIDATE 20 MG/10 ML VIAL IV ONE (16:18)
[2016-08-24] MEDS ORDERED: GLYCOPYRROLATE 0.4 MG/2 ML VIAL ONE (16:19)
[2016-08-24] MEDS ORDERED: SUCCINYLCHOLINE 200 MG/10 ML VIAL ONE (16:19)
[2016-08-24] MEDS ORDERED: ROCURONIUM 100 MG/10 ML VIAL IV ONE (16:19)
[2016-08-24] MEDS ORDERED: LACTATED RINGERS 1,000 ML IV ONE (16:19)
[2016-08-24] MEDS ORDERED: NEOSTIGMINE 10 MG/10 ML VIAL ONE (16:20)
--- NOTE | 2016-08-24 16:27 | XRay Report ---
XR chest 1V portable Indication: Respiratory postoperative evaluation Comparison: 04 August 2016 Findings: The heart and mediastinum are normal in size and configuration. Internal jugular catheters and NG tube in place, appear within normal limits. In Pacemaker device is unchanged in position. The pulmonary vascularity is slightly increased. Lung volumes are increased with prominent bronchial markings. No lung infiltrates, effusions, pneumothorax or other abnormality is demonstrated. Impression: Lines and tubes appear within normal limits. Increased pulmonary vascularity may indicate cardiac decompensation. PROCEDURE INTERPRETED AT [facility] DEPARTMENT OF RADIOLOGY Final Report Signed by: Dr. Kong Marina
[2016-08-24] MEDS ORDERED: ONDANSETRON 4 MG/2 ML VIAL IV ONE (16:30)
[2016-08-24] MEDS ORDERED: METOCLOPRAMIDE 10 MG/2 ML VIAL ONE (16:32)
[2016-08-24] MEDS ORDERED: METOCLOPRAMIDE 10 MG/2 ML VIAL IV ONE (16:34)
[2016-08-24] MEDS ORDERED: HYDROmorphone 2 MG/1 ML VIAL ONE (16:50)
[2016-08-24] MEDS ORDERED: HYDROmorphone 2 MG/1 ML VIAL IV PRN ×2 (16:53→21:29)
[2016-08-24] MEDS: ONDANSETRON 4 MG/2 ML VIAL IV PRN (21:09)
[2016-08-24] MEDS: HYDROmorphone 2 MG/1 ML VIAL IV PRN (21:09)
[2016-08-24] MEDS ORDERED: hydrALAZINE 20 MG/1 ML VIAL IV PRN (21:27)
[2016-08-24] MEDS ORDERED: ALBUMIN 5% 12.5 GM in PREMIX 1 EACH IV ONE (21:27)
[2016-08-25] MEDS: METOPROLOL TARTRATE 5 MG/5 ML VIAL IV SCH ×3 (00:18→21:50)
[2016-08-25] MEDS: ONDANSETRON 4 MG/2 ML VIAL IV PRN (02:09)
[2016-08-25] MEDS: DEXTROSE 5% NACL 0.45% 1,000 ML IV SCH ×2 (03:40→11:11)
--- NOTE | 2016-08-25 07:32 | Cardiology Progress Note ---
Assessment and Plan (1) Small bowel obstruction Status: Acute Current Visit: Yes (2) Cardiac pacemaker in situ Status: Chronic Current Visit: Yes Cardiology - PN: Subj Interval history: Cardiology note Postop day #1 laparotomy with small bowel enteroclysis Awake alert and responsive Has some headache but overall doing quite well Telemetry shows atrial pacing O2 sat 96% on 2 L Blood pressure 112/60 Regular rhythm no murmur or gallop Clear chest Abdomen soft No leg edema Impression Postop day #1 laparotomy with small bowel enterolysis for recurrent small bowel obstruction Status post Medtronic dual-chamber pacemaker for sick sinus syndrome and paroxysmal atrial fibrillation 1 month ago Ejection fraction 60% and moderate left atrium by recent echo Plan Monitor IV antibiotics NG Exam (Progress Note) - Constitutional Vitals: Period Temp Pulse Resp BP Sys/Watt Pulse Ox Last 24 Hr 97.0 F-98.4 F 60-81 10-21 101-201/50-108 92-100 Result/EKG - Labs CBC & BMP: 08/24/16 07:03 08/24/16 05:04 Labs: Laboratory Results - last 24 hr 08/24/16 08/24/16 08/24/16 05:04 07:03 14:30 WBC 6.0 D RBC 3.23 L Hgb 10.4 L D Hct 31.3 L MCV 96.9 MCH 32 MCHC 33.2 RDW 13.4 Plt Count 111 L MPV 10.2 Neut % (Auto) 36.4 L Lymph % (Auto) 54.8 H [place] % (Auto) 5.5 Eos % (Auto) 2.3 Baso % (Auto) 0.8 Neut # (Auto) 2.2 Lymph # (Auto) 3.3 [place] # (Auto) 0.3 Eos # (Auto) 0.1 Baso # (Auto) 0.1 Total Counted 100 Immature Gran % 0.2 Nucleated RBC % 0.0 Immature Gran # 0.01 Segmented Neutrophils 48 L Lymphocytes 47 Monocytes 4 Eosinophils 1 Nucleated RBCs # 0.00 Platelet Estimate Decreased Hypochromasia 1+ Morphology Comment Sodium 140 Potassium 3.1 L Chloride 103 Carbon Dioxide 28 Anion Gap 12.1 BUN 1 L Creatinine 0.50 L GFR Calculation 78 BUN/Creatinine Ratio 2.00 L Glucose 155 H Calculated Osmolality 277.4 Calcium 7.7 L Urine Color Straw Urine Appearance Clear Urine pH 8.0 Ur Specific [place] 1.002 Urine Protein Negative Urine Glucose (UA) Negative Urine Ketones Negative Urine Blood Moderate Urine Nitrate Negative Urine Bilirubin Negative Urine Urobilinogen < 2.0 H Urine Leukocytes Negative Urine RBC 2 Urine WBC <1 Ur Squamous Epith Cells Occasional Ur Culture Indicated? Not indicated
--- NOTE | 2016-08-25 08:03 | Event Note ---
She looks and feels well this morning. Is awake alert and has stable vital signs. She has adequate urine output and less nasogastric drainage. If it is okay with cardiology I think it is fine for her to go to the floor. If she continues to have low nasogastric output may be later today or in the morning her nasogastric tube can be discontinued.
[2016-08-25] MEDS: IBUPROFEN 400 MG TABLET PER TUBE PRN ×2 (08:17→19:43)
[2016-08-25] MEDS: AMIODARONE 200 MG TABLET PO SCH (08:17)
[2016-08-25 08:20] LABS: Basophils # 0.1 10*3/uL (0.0-0.2); Basophils % 0.7 % (0.0-0.8); Eosinophils # 0.1 10*3/uL (0.0-0.87); Eosinophils % 1.3 % (0.00-10.9); Hematocrit 33.6 VOL% (35.7-47.0); Hemoglobin 11.6 GM/DL (12.0-16.0); Immature Granulocytes % 0.3 %; Immature Granulocytes Absolute 0.03 #; Lymphocytes # 3.5 10*3/uL (1.4-4.0); Lymphocytes % 35.8 % (21.3-54.2); Mean Corpuscular HGB Conc 34.5 GM/DL (32-36); Mean Corpuscular Hemoglobin 33 PG (27-34); Mean Corpuscular Volume 95.2 FL (87-102); Mean Platelet Volume 10.1 FL (9.6-12.0); Monocytes # 0.6 10*3/uL (0.11-0.8); Monocytes % 5.6 % (1.7-12.7); Neutrophils # 5.6 10*3/uL (1.4-7.4); Neutrophils % 56.3 % (38.7-73.9); Platelet Count 118 T/CUMM (130-400); Red Blood Count 3.53 MC/CUMM (3.8-5.5); Red Cell Distribution Width 13.4 % (9.3-17.3); White Blood Count 9.9 T/CUMM (4-12)
[2016-08-25 08:55] LABS: Calcium 7.6 MG/DL (8.5-10.1); Magnesium 1.4 MG/DL (1.8-2.4); Osmolality,Calculated 274.5 MOS/KG (273-304); Potassium 2.9 MMOL/L (3.5-5.1)
[2016-08-25] MEDS: PANTOPRAZOLE 40 MG VIAL IV SCH (09:21)
[2016-08-25] MEDS: BUDESONIDE/FORMOTEROL 80-4.5 INHALER 6.9 GM INH SCH ×2 (09:22→21:50)
[2016-08-25] MEDS: POTASSIUM CHLORIDE RIDER 10 MEQ in PREMIX 1 EACH IV PRN ×5 (09:34→20:10)
[2016-08-25] MEDS ORDERED: MAGNESIUM SULF RIDER 4 GM in PREMIX 1 EACH IV PRN (09:59)
[2016-08-25] MEDS ORDERED: MAGNESIUM SULF RIDER 2 GM in PREMIX 1 EACH IV PRN (09:59)
[2016-08-25] MEDS ORDERED: BUTALBITAL/ACETAMIN/CAFFEINE 50-325-40 MG TABLET PO PRN (10:03)
--- NOTE | 2016-08-25 10:15 | Anesthesia Post-Op ---
Anesthesia Post OP - Post Ansesthetic Evaluation Patient seen in post op: Yes Resp: within normal limits CV: within normal limits Mental: within normal limits Temp: within normal limits [id number]: within normal limits Nausea and Vomiting: within normal limits Pain: within normal limits
[2016-08-25] MEDS ORDERED: POTASSIUM CHLORIDE RIDER 20 MEQ in PREMIX 1 EACH IV SCH (11:00)
[2016-08-25] MEDS: ENOXAPARIN 40 MG/0.4 ML SYRINGE SUBCUT SCH (13:04)
[2016-08-25] MEDS: DEXT 5% NACL 0.45% KCL 20 MEQ 20 MEQ/1,000 ML BAG IV SCH ×2 (14:08→21:38)
[2016-08-26] MEDS: ONDANSETRON 4 MG/2 ML VIAL IV PRN ×3 (02:01→20:46)
[2016-08-26] MEDS: MORPHINE 2 MG/1 ML SYRINGE IV PRN ×3 (02:01→20:48)
[2016-08-26] MEDS: DEXT 5% NACL 0.45% KCL 20 MEQ 20 MEQ/1,000 ML BAG IV SCH (05:32)
[2016-08-26 07:38] LABS: Basophils # 0.1 10*3/uL (0.0-0.2); Basophils % 1.1 % (0.0-0.8); Eosinophils # 0.3 10*3/uL (0.0-0.87); Eosinophils % 3.9 % (0.00-10.9); Hematocrit 32.5 VOL% (35.7-47.0); Hemoglobin 10.9 GM/DL (12.0-16.0); Immature Granulocytes % 0.3 %; Immature Granulocytes Absolute 0.02 #; Mean Corpuscular HGB Conc 33.5 GM/DL (32-36); Mean Corpuscular Hemoglobin 32 PG (27-34); Mean Corpuscular Volume 95.6 FL (87-102); Mean Platelet Volume 11.3 FL (9.6-12.0); Monocytes # 0.4 10*3/uL (0.11-0.8); Monocytes % 4.8 % (1.7-12.7); Neutrophils # 3.1 10*3/uL (1.4-7.4); Neutrophils % 38.9 % (38.7-73.9); Platelet Count 108 T/CUMM (130-400); Red Cell Distribution Width 13.5 % (9.3-17.3); White Blood Count 7.9 T/CUMM (4-12)
[2016-08-26 08:03] LABS: Calcium 7.7 MG/DL (8.5-10.1); Osmolality,Calculated 275.4 MOS/KG (273-304); Potassium 3.7 MMOL/L (3.5-5.1)
--- NOTE | 2016-08-26 08:26 | Cardiology Progress Note ---
Assessment and Plan (1) Small bowel obstruction Status: Acute Current Visit: Yes (2) Cardiac pacemaker in situ Status: Chronic Current Visit: Yes Cardiology - PN: Subj Interval history: Cardiology note Postop day #2 laparotomy with small bowel interval lysis No temperature Passing flatus Telemetry shows atrial pacing Blood pressure 140/70 O2 sat 98% Regular rhythm soft systolic murmur as before Decreased breath sounds but clear Abdomen softer Lab data today White count 7.9 hemoglobin 10.9 hematocrit 32.5 Sodium 140 potassium 3.7 chloride 105 CO2 28 BUN 4 creatinine 0.40 glucose 101 Impression Postop day #2 laparotomy with small bowel enteroclysis for recurrent small bowel obstruction Status post Medtronic dual-chamber pacemaker for sick sinus syndrome and paroxysmal atrial fibrillation 1 month ago Ejection fraction 60% with moderately dilated left atrium by recent echo Plan Pull NG tube today Begin clear liquids advance as tolerated Monitor Exam (Progress Note) - Constitutional Vitals: Period Temp Pulse Resp BP Sys/Watt Pulse Ox Last 24 Hr 97.3 F-99.9 F 60-84 16-20 116-156/49-70 96-100 Result/EKG - Labs CBC & BMP: 08/26/16 05:19 08/26/16 05:19 Labs: Laboratory Results - last 24 hr 08/25/16 08/25/16 08/25/16 08:16 08:16 23:10 WBC 9.9 D RBC 3.53 L Hgb 11.6 L Hct 33.6 L MCV 95.2 MCH 33 MCHC 34.5 RDW 13.4 Plt Count 118 L MPV 10.1 Neut % (Auto) 56.3 Lymph % (Auto) 35.8 [place] % (Auto) 5.6 Eos % (Auto) 1.3 Baso % (Auto) 0.7 Neut # (Auto) 5.6 Lymph # (Auto) 3.5 [place] # (Auto) 0.6 Eos # (Auto) 0.1 Baso # (Auto) 0.1 Immature Gran % 0.3 Nucleated RBC % 0.0 Immature Gran # 0.03 Nucleated RBCs # 0.00 Sodium 139 Potassium 2.9 L 3.8 Chloride 102 Carbon Dioxide 29 Anion Gap 10.9 BUN 3 L Creatinine 0.50 L GFR Calculation 78 BUN/Creatinine Ratio 6.00 Glucose 123 H Calculated Osmolality 274.5 Calcium 7.6 L Magnesium 1.4 L 08/26/16 08/26/16 05:19 05:19 WBC 7.9 RBC 3.40 L Hgb 10.9 L Hct 32.5 L MCV 95.6 MCH 32 MCHC 33.5 RDW 13.5 Plt Count 108 L MPV 11.3 Neut % (Auto) 38.9 Lymph % (Auto) 51.0 [place] % (Auto) 4.8 Eos % (Auto) 3.9 Baso % (Auto) 1.1 H Neut # (Auto) 3.1 Lymph # (Auto) 4.0 [place] # (Auto) 0.4 Eos # (Auto) 0.3 Baso # (Auto) 0.1 Immature Gran % 0.3 Nucleated RBC % 0.0 Immature Gran # 0.02 Nucleated RBCs # 0.00 Sodium 140 Potassium 3.7 Chloride 105 Carbon Dioxide 28 Anion Gap 10.7 BUN 4 L Creatinine 0.40 L GFR Calculation 84 BUN/Creatinine Ratio 10.00 Glucose 101 Calculated Osmolality 275.4 Calcium 7.7 L Magnesium
[2016-08-26] MEDS: PANTOPRAZOLE 40 MG VIAL IV SCH (09:24)
[2016-08-26] MEDS: AMIODARONE 200 MG TABLET PO SCH (09:27)
[2016-08-26] MEDS: METOPROLOL TARTRATE 5 MG/5 ML VIAL IV SCH ×2 (09:31→20:52)
[2016-08-26] MEDS: BUDESONIDE/FORMOTEROL 80-4.5 INHALER 6.9 GM INH SCH ×2 (09:34→20:45)
--- NOTE | 2016-08-26 10:21 | Event Note ---
General Surgery Progress Note Chief complaint This patient is an 81-year-old woman admitted with small bowel obstruction treated with laparotomy and lysis of adhesions by Dr. Noland on 08/23/2016 Interval history The patient is passing gas. Her NG tube has no output overnight. Her Lopez catheter was removed today. She is walking around in her room but has not walked in the hallway yet. She has good strength. She feels hungry. Physical exam Afebrile with normal vital signs Abdominal exam is benign. Incision is clean. The abdomen is nondistended. Labs Reviewed, within normal limits Imaging None new Assessment and plan We will remove the patient's NG tube and Lopez today Begin ambulating in the hallway and working with physical therapy more Continue Lovenox Low fiber diet Discharge planning
[2016-08-26] MEDS: ENOXAPARIN 40 MG/0.4 ML SYRINGE SUBCUT SCH (13:01)
[2016-08-27 04:54] LABS: Calcium 8.1 MG/DL (8.5-10.1); Magnesium 1.6 MG/DL (1.8-2.4); Osmolality,Calculated 276.3 MOS/KG (273-304); Potassium 3.5 MMOL/L (3.5-5.1)
[2016-08-27] MEDS: AMIODARONE 200 MG TABLET PO SCH (09:54)
[2016-08-27] MEDS: METOPROLOL TARTRATE 5 MG/5 ML VIAL IV SCH (09:55)
[2016-08-27] MEDS: PANTOPRAZOLE 40 MG VIAL IV SCH (10:02)
[2016-08-27] MEDS: BUDESONIDE/FORMOTEROL 80-4.5 INHALER 6.9 GM INH SCH ×2 (10:07→20:39)
--- NOTE | 2016-08-27 10:28 | Cardiology Progress Note ---
Assessment and Plan (1) Small bowel obstruction Status: Acute Current Visit: Yes (2) Cardiac pacemaker in situ Status: Chronic Current Visit: Yes Cardiology - PN: Subj Interval history: Cardiology note Postop day #3 laparotomy with small bowel enteroclysis for recurrent small bowel obstruction Patient doing very well. Tolerating regular food. No temperature. O2 sat 96% room air. Blood pressure 150/80 Regular rhythm no gallop Decreased breath sounds but clear Abdomen a little distended but nontender No leg edema Lab data today Sodium 141 potassium 3.5 chloride 102 CO2 30 BUN 3 creatinine 0.5 Glucose 87 magnesium 1.6 Impression Postop day #3 laparotomy with small bowel enteroclysis for recurrent small bowel obstruction Status post Medtronic dual-chamber pacemaker for sick sinus syndrome and paroxysmal atrial fibrillation 1 month ago EF 60% with dilated left atrium by recent echo Plan DC IV Lopressor Restart carvedilol 25 mg twice daily Restart losartan 25 daily Follow abdominal exam 40 mEq KCl Exam (Progress Note) - Constitutional Vitals: Period Temp Pulse Resp BP Sys/Watt Pulse Ox Last 24 Hr 97.1 F-98.3 F 61-84 15-20 139-157/63-79 96-100 Result/EKG - Labs CBC & BMP: 08/26/16 05:19 08/27/16 04:00 Labs: Laboratory Results - last 24 hr 08/27/16 04:00 Sodium 141 Potassium 3.5 Chloride 102 Carbon Dioxide 30 Anion Gap 12.5 BUN 3 L Creatinine 0.50 L GFR Calculation 78 BUN/Creatinine Ratio 6.00 Glucose 87 Calculated Osmolality 276.3 Calcium 8.1 L Magnesium 1.6 L
[2016-08-27] MEDS ORDERED: POTASSIUM CHLORIDE 20 MEQ TABLET PO ONE (10:29)
--- NOTE | 2016-08-27 11:20 | Event Note ---
General Surgery Progress Note Chief complaint This patient is an 81-year-old woman admitted with small bowel obstruction treated with laparotomy and lysis of adhesions by Dr. Noland on 08/23/2016 Interval history The patient continues to pass gas. No bowel movements yet. Tolerated her diet but got full little bit early. No nausea or vomiting. Pain is well controlled. Physical exam Afebrile with normal vital signs Abdominal exam is benign. Incision is clean. The abdomen is nondistended. There are normal bowel sounds Labs Reviewed, within normal limits Imaging None new Assessment and plan Continue diet as tolerated Continue walking in the hallway Transition to all p.o. medications Plan for discharge home tomorrow Remove central line today
[2016-08-27] MEDS: LOSARTAN 25 MG TABLET PO SCH (13:35)
[2016-08-27] MEDS: CARVEDILOL 25 MG TABLET PO SCH ×2 (13:36→20:40)
[2016-08-27] MEDS: ENOXAPARIN 40 MG/0.4 ML SYRINGE SUBCUT SCH (13:38)
[2016-08-28] MEDS: IBUPROFEN 400 MG TABLET PER TUBE PRN (02:07)
--- NOTE | 2016-08-28 09:11 | Discharge Summary ---
Hospital Course - Hospital Course Hospital Course: This patient was admitted with a small bowel obstruction treated by Dr. Noland with laparotomy and lysis of adhesions. Her bowel function returned and she was tolerating her diet and passing gas regularly with good bowel sounds. She was discharged home lifting restrictions and follow-up in clinic with Dr. Noland for clip removal in about 1 week Specialty Discharge - Follow Up or Referrals Discharge Plan - Discharge Data Disposition: Disch To Home/Self Care Condition at Discharge: Stable Discharge Diet: advance to your usual diet Activity: no lifting Hygiene: may shower Weight Bearing at Discharge: full weight bearing Driving: not until seen by doctor Contact your physician if you experience:: fever over 101, Difficulty voiding, Redness or swelling, Nausea/Vomiting, Shortness of breath, Bleeding, pain uncontrolled by pain medications Wound / Dressing Care Instructions: It is okay to clean the dressing daily in the shower. Do not submerge underwater - Discharge Medications New HYDROcodone/ACETAMIN 5-325 [[place] 5-325] 1 tablet PO Q4H PRN #20 tablet PRN Reason: Pain Moderate (4-7) Continue Butalbital/Acet/Caff 50-325-40 [Fioricet 50-325-40 mg Tablet] 1 tablet PO Q4H PRN #0 tablet PRN Reason: Headache Carvedilol [Coreg] 25 mg PO BID tablet Losartan [Cozaar] 25 mg PO BID Amiodarone Tab [Cordarone Tab] 200 mg PO DAILY tablet Budesonide/Formoterol 80-4.5 [Symbicort 80-4.5] 2 puff INH BID inhaler - Follow Up or Referral Follow Up: Omar Noland III., MD [Physician] - 1 Week - Forms/Instructions Instructions: Bowel Obstruction (DC) Exam - Constitutional Vitals: Period Temp Pulse Resp BP Sys/Watt Pulse Ox Last 24 Hr 97.2 F-98.5 F 62-71 16-19 124-157/60-85 96-97 General appearance: normal weight, no acute distress - Head Head exam: Present: normal inspection, normocephalic - Eye Eye exam: Present: EOMI Pupils: Present: LOVELY - ENT ENT exam: Present: normal exam - Neck Neck exam: Present: normal inspection - Respiratory Respiratory exam: Present: clear to auscultation bilaterally. Absent: accessory muscle use, chest wall tenderness - Cardiovascular Cardiovascular exam: Present: regular rate and rhythm. Absent: systolic murmur , tachycardia - GI/Abdominal GI/Abdominal exam: Present: normal bowel sounds, tenderness (Minimal expected postoperative tenderness), soft, other (The incision is clean, dry, and intact) . Absent: rebound - Extremities Exam Extremities exam: Present: normal inspection, normal capillary refill - Back Exam Back exam: Present: normal inspection - Neurological Exam Neurological exam: Present: alert, oriented X3 - Psychiatric Psychiatric exam: Present: normal affect, normal mood - Skin Skin exam: Present: normal color, warm DS: Provider Date of admission: 08/21/16 04:57 Primary care physician: . No PCP Attending physician on admission: Sen Hernandez MD Consults: 08/21/16 11:44 Consult to Physician [CONS] Routine Comment: Consulting Provider: Ruben Serrano Consult to Specialist Group: Cardiology When should Consulting Provider be notified: Now Person Notified: Lili Date Notified: 08/21/16 Time Notified: 11:51 08/25/16 10:00 Consult to Occupational Therapy [CONS] Routine Reason for Occupational Therapy: Evaluate and Treat Consult to Physical Therapy [CONS] Routine Reason for Physical Therapy: Evaluate and Treat 08/25/16 10:01 Consult to Case Mgmt/Social Srvs [CONS] Routine Reason for Case Mgmt/Social Srvs: Discharge Planning Discharging clinician: Lc Pavon MD Expected date of discharge: 08/28/16
[2016-08-28] MEDS: CARVEDILOL 25 MG TABLET PO SCH (10:32)
[2016-08-28] MEDS: BUDESONIDE/FORMOTEROL 80-4.5 INHALER 6.9 GM INH SCH (10:32)
[2016-08-28] MEDS: LOSARTAN 25 MG TABLET PO SCH (10:33)
[2016-08-28] MEDS: AMIODARONE 200 MG TABLET PO SCH (10:33)
[2016-08-28 11:20] VITALS: BP 163/70
--- NOTE | 2016-08-28 11:46 | Cardiology Progress Note ---
Assessment and Plan (1) Small bowel obstruction Status: Acute Current Visit: Yes (2) Cardiac pacemaker in situ Status: Chronic Current Visit: Yes Cardiology - PN: Subj Interval history: Cardiology note Postop day #4 laparotomy with small bowel enteroclysis for recurrent small bowel obstruction Eating without difficulty and walking. No temperature. Telemetry shows atrial pacing Regular rhythm no gallop Decreased breath sounds but clear Abdomen nontender Sodium 141 potassium 3.5 chloride 102 CO2 30 BUN 3 creatinine 0.50 Impression Postop day #3 laparotomy with small bowel enteroclysis for recurrent small bowel obstruction Status post Medtronic dual-chamber pacemaker for sick sinus syndrome and paroxysmal atrial fibrillation 1 month ago EF 60% with moderate that left atrium by recent echo Plan Agree with discharge Carvedilol 25 mg twice daily Losartan has been increased to 25 mg twice daily Amiodarone 200 mg daily Office follow-up as scheduled Exam (Progress Note) - Constitutional Vitals: Period Temp Pulse Resp BP Sys/Watt Pulse Ox Last 24 Hr 97.2 F-98.8 F 62-71 16-19 124-163/60-85 93-97 Result/EKG - Labs CBC & BMP: 08/26/16 05:19 08/27/16 04:00 Specialty Discharge - Follow Up or Referrals Follow up with: Omar Noland III., MD [Physician] - 1 Week (CALL OFFICE ON MONDAY TO SCHEDULE APPOINTMENT) Payam Brand MD [Physician] - (CALL OFFICE TO SCHEDULE AN APPOINTMENT)
[2016-08-28] MEDS ORDERED: LOSARTAN 25 MG TABLET PO SCH (21:00)
== END 2016-08-28 11:50 | disposition home health service (06) | DRG 336 ==
LOC: EDUNIT# → EDBD → N.ED 01:57 → N.EDINP 04:57 → N.3E 06:03 → N.ICU 08-24 17:22 → N.3E 08-25 12:09 → N.ICU 08-25 12:11 → N.3E 08-25 13:47
PROVIDERS: ADMIT Surgery; ATTEND Surgery

== ENCOUNTER 2020-11-15 20:08 | Inpatient (IN) ==
[2020-11-15 20:36] LABS: Basophils # 0.1 10*3/uL (0.0-0.2); Basophils % 0.4 % (0.0-0.8); Eosinophils # 0.1 10*3/uL (0.0-0.87); Eosinophils % 0.4 % (0.00-10.9); Hematocrit 39.4 VOL% (35.7-47.0); Hemoglobin 12.7 GM/DL (12.0-16.0); Immature Granulocytes % 0.4 %; Immature Granulocytes Absolute 0.06 #; Lymphocytes # 6.9 10*3/uL (1.4-4.0); Lymphocytes % 50.4 % (21.3-54.2); Mean Corpuscular HGB Conc 32.2 GM/DL (32-36); Mean Corpuscular Volume 94.3 FL (87-102); Monocytes % 5.4 % (1.7-12.7); Platelet Count 218 T/CUMM (130-400); Red Blood Count 4.18 MC/CUMM (3.8-5.5); Red Cell Distribution Width 14.9 % (9.3-17.3); White Blood Count 13.8 T/CUMM (4-12)
[2020-11-15 20:55] LABS: Eosinophils 2 % (0-10); Hypochromasia Slight; Lymphocytes 51 % (20-55); Segmented Neutrophils 40 % (50-85); Total Cells Counted 100
[2020-11-15 20:56] LABS: Platelet Estimate Adequate; Target Cells Few
[2020-11-15 21:11] LABS: Albumin 2.7 G/DL (3.4-5.0); Bilirubin,Total 0.6 MG/DL (0.20-1.00); Calcium 8.2 MG/DL (8.5-10.1); Osmolality,Calculated 270.1 MOS/KG (273-304); Potassium 3.7 MMOL/L (3.5-5.1); Total Protein 6.1 G/DL (6.4-8.2)
[2020-11-15 21:27] LABS: Bacteria,Urine Moderate /HPF (Few); Bilirubin,Urine Negative (Negative); Blood, Urine Negative (Negative); Glucose,Urine (UA) Negative (Negative); Ketones,Urine Negative (Negative); Mucus,Urine Occasional /LPF (Occasional); Nitrite,Urine Negative (Negative); Protein,Urine Negative; RBC,Urine 7 /HPF (0-4); Squamous Epithelial Cell,Urine Occasional /HPF (0-10); Urine Appearance CLEAR (Clear); Urine Color Yellow (Yellow); Urine Specific Gravity 1.008 (1.001-1.035)
[2020-11-15] MEDS ORDERED: ALBUTEROL/IPRATROPIUM 3 ML NEB RESP TX STA (22:10)
[2020-11-15] MEDS ORDERED: AZITHROMYCIN INJ 500 MG in SODIUM CHLORIDE 0.9% 250 ML IV STA (23:13)
[2020-11-16] MEDS ORDERED: GLUCAGON 1 MG VIAL IM PRN (01:32)
[2020-11-16] MEDS ORDERED: DEXTROSE 50% 25 GM/50 ML VIAL IV PRN (01:32)
[2020-11-16] MEDS ORDERED: LACTULOSE 20 GM/30 ML UDCUP PO PRN (01:41)
[2020-11-16] MEDS: ACETAMINOPHEN/CODEINE 300-30 MG TABLET PO PRN ×3 (02:51→21:31)
[2020-11-16] MEDS ORDERED: MAGNESIUM SULF RIDER 1 GM/100 ML PREMIX IV ONE (03:00)
[2020-11-16] MEDS: LEVALBUTEROL 1.25 MG/3 ML NEB RESP TX SCH ×3 (07:23→19:30)
[2020-11-16 07:29] LABS: Basophils # 0.1 10*3/uL (0.0-0.2); Basophils % 0.7 % (0.0-0.8); Eosinophils % 0.3 % (0.00-10.9); Hematocrit 36.5 VOL% (35.7-47.0); Hemoglobin 11.9 GM/DL (12.0-16.0); Immature Granulocytes % 0.3 %; Immature Granulocytes Absolute 0.05 #; Lymphocytes # 8.6 10*3/uL (1.4-4.0); Lymphocytes % 54.9 % (21.3-54.2); Mean Corpuscular HGB Conc 32.6 GM/DL (32-36); Mean Corpuscular Volume 94.3 FL (87-102); Mean Platelet Volume 10.1 FL (9.6-12.0); Neutrophils % 35.8 % (38.7-73.9); Platelet Count 212 T/CUMM (130-400); Red Blood Count 3.87 MC/CUMM (3.8-5.5); Red Cell Distribution Width 15.1 % (9.3-17.3); White Blood Count 15.7 T/CUMM (4-12)
[2020-11-16 07:52] LABS: Albumin 2.6 G/DL (3.4-5.0); Calcium 8.1 MG/DL (8.5-10.1); Osmolality,Calculated 265.2 MOS/KG (273-304); Potassium 3.4 MMOL/L (3.5-5.1); Total Protein 5.4 G/DL (6.4-8.2)
[2020-11-16 07:53] LABS: Atypical Lymphocytes Few; Lymphocytes 53 % (20-55); Platelet Estimate Adequate; Segmented Neutrophils 43 % (50-85); Total Cells Counted 100
[2020-11-16 07:54] LABS: Hypochromasia Slight; Microcytosis Slight; Smudge Cells Few
[2020-11-16] MEDS ORDERED: POTASSIUM CHLORIDE 20 MEQ TABLET PO ONE (08:01)
[2020-11-16] MEDS ORDERED: hydrALAZINE 20 MG/1 ML VIAL IV PRN (08:02)
[2020-11-16 08:37] LABS: Thyroid Stimulating Hormone 6.49 uIU/ml (0.358-3.74)
[2020-11-16] MEDS ORDERED: AMIODARONE 200 MG TABLET PO SCH (09:00)
[2020-11-16] MEDS ORDERED: ROSUVASTATIN 10 MG TABLET PO SCH (09:00)
[2020-11-16] MEDS: PANTOPRAZOLE 40 MG TABLET PO SCH (09:44)
[2020-11-16] MEDS: carvediloL 25 MG TABLET PO SCH ×2 (09:44→20:17)
[2020-11-16] MEDS: ONDANSETRON 4 MG/2 ML VIAL IV PRN (09:45)
[2020-11-16] MEDS: POLYETHYLENE GLYCOL POWDER 17 GM PACK PO SCH ×2 (09:45→20:17)
[2020-11-16] MEDS: LOSARTAN 25 MG TABLET PO SCH ×2 (09:45→20:17)
[2020-11-16] MEDS: ENOXAPARIN 40 MG/0.4 ML SYRINGE SUBCUT SCH (09:46)
[2020-11-16 10:15] LABS: Free T4 (Free Thyroxine) 1.66 NG/DL (0.76-1.46)
[2020-11-17] MEDS: LEVALBUTEROL 1.25 MG/3 ML NEB RESP TX SCH ×2 (00:48→07:10)
[2020-11-17 05:43] LABS: Basophils # 0.1 10*3/uL (0.0-0.2); Basophils % 0.7 % (0.0-0.8); Eosinophils # 0.1 10*3/uL (0.0-0.87); Eosinophils % 0.5 % (0.00-10.9); Hematocrit 33.3 VOL% (35.7-47.0); Hemoglobin 10.7 GM/DL (12.0-16.0); Immature Granulocytes % 0.3 %; Immature Granulocytes Absolute 0.03 #; Lymphocytes % 53.4 % (21.3-54.2); Mean Corpuscular HGB Conc 32.1 GM/DL (32-36); Mean Corpuscular Volume 94.3 FL (87-102); Monocytes % 12.2 % (1.7-12.7); Neutrophils % 32.9 % (38.7-73.9); Platelet Count 188 T/CUMM (130-400); Red Blood Count 3.53 MC/CUMM (3.8-5.5); Red Cell Distribution Width 15.1 % (9.3-17.3); White Blood Count 11.2 T/CUMM (4-12)
[2020-11-17 06:05] LABS: Albumin 2.4 G/DL (3.4-5.0); Bilirubin,Total 0.7 MG/DL (0.20-1.00); Calcium 7.9 MG/DL (8.5-10.1); Potassium 4.4 MMOL/L (3.5-5.1); Total Protein 5.1 G/DL (6.4-8.2)
[2020-11-17 06:08] LABS: Hypochromasia Slight; Lymphocytes 48 % (20-55); Platelet Estimate Normal; Segmented Neutrophils 45 % (50-85); Total Cells Counted 100
[2020-11-17 06:23] LABS: Osmolality,Calculated 262.5 MOS/KG (273-304)
[2020-11-17] MEDS: POLYETHYLENE GLYCOL POWDER 17 GM PACK PO SCH ×2 (09:30→20:16)
[2020-11-17] MEDS: carvediloL 25 MG TABLET PO SCH ×2 (09:30→20:15)
[2020-11-17] MEDS: ACETAMINOPHEN/CODEINE 300-30 MG TABLET PO PRN ×3 (09:30→20:16)
[2020-11-17] MEDS: LOSARTAN 25 MG TABLET PO SCH ×2 (09:30→20:15)
[2020-11-17] MEDS: PANTOPRAZOLE 40 MG TABLET PO SCH (09:30)
[2020-11-17] MEDS: ENOXAPARIN 40 MG/0.4 ML SYRINGE SUBCUT SCH (09:31)
[2020-11-17] MEDS: SODIUM CHLORIDE 0.9% 1,000 ML IV SCH (09:37)
[2020-11-17] MEDS: LEVOTHYROXINE 50 MCG TABLET PO SCH (11:01)
[2020-11-17] MEDS ORDERED: LEVALBUTEROL 1.25 MG/3 ML NEB RESP TX PRN (12:40)
[2020-11-18] MEDS: ACETAMINOPHEN/CODEINE 300-30 MG TABLET PO PRN ×4 (00:18→20:45)
[2020-11-18] MEDS: SODIUM CHLORIDE 0.9% 1,000 ML IV SCH (00:18)
[2020-11-18] MEDS: LEVOTHYROXINE 50 MCG TABLET PO SCH (05:48)
[2020-11-18] MEDS ORDERED: LEVOTHYROXINE 50 MCG TABLET PO SCH (06:30)
[2020-11-18 07:09] LABS: Basophils # 0.1 10*3/uL (0.0-0.2); Basophils % 0.5 % (0.0-0.8); Eosinophils # 0.1 10*3/uL (0.0-0.87); Eosinophils % 0.7 % (0.00-10.9); Hematocrit 33.1 VOL% (35.7-47.0); Hemoglobin 10.5 GM/DL (12.0-16.0); Immature Granulocytes % 0.2 %; Immature Granulocytes Absolute 0.02 #; Lymphocytes # 5.5 10*3/uL (1.4-4.0); Lymphocytes % 59.7 % (21.3-54.2); Mean Corpuscular HGB Conc 31.7 GM/DL (32-36); Mean Corpuscular Volume 96.8 FL (87-102); Mean Platelet Volume 10.5 FL (9.6-12.0); Monocytes % 6.8 % (1.7-12.7); Neutrophils % 32.1 % (38.7-73.9); Platelet Count 178 T/CUMM (130-400); Red Blood Count 3.42 MC/CUMM (3.8-5.5); Red Cell Distribution Width 15.3 % (9.3-17.3); White Blood Count 9.2 T/CUMM (4-12)
[2020-11-18 07:32] LABS: Atypical Lymphocytes Few; Hypochromasia Slight; Lymphocytes 56 % (20-55); Microcytosis Slight; Platelet Estimate Adequate; Segmented Neutrophils 42 % (50-85); Total Cells Counted 100
[2020-11-18 07:47] LABS: Albumin 2.3 G/DL (3.4-5.0); Bilirubin,Total 0.7 MG/DL (0.20-1.00); Osmolality,Calculated 270.8 MOS/KG (273-304); Potassium 4.5 MMOL/L (3.5-5.1); Total Protein 5.1 G/DL (6.4-8.2)
[2020-11-18] MEDS: POLYETHYLENE GLYCOL POWDER 17 GM PACK PO SCH ×2 (08:25→20:46)
[2020-11-18] MEDS: ENOXAPARIN 40 MG/0.4 ML SYRINGE SUBCUT SCH (08:26)
[2020-11-18] MEDS: MEGESTROL 40 MG TABLET PO SCH (08:27)
[2020-11-18] MEDS: PANTOPRAZOLE 40 MG TABLET PO SCH (08:28)
[2020-11-18] MEDS: LOSARTAN 25 MG TABLET PO SCH ×2 (08:28→20:45)
[2020-11-18] MEDS: carvediloL 25 MG TABLET PO SCH ×2 (08:28→20:45)
[2020-11-18 11:21] LABS: 25-Hydroxy D Total 17 ng/mL; 25-Hydroxy D2 < 4.0 ng/mL; 25-Hydroxy D3 17 ng/mL
[2020-11-19] MEDS: ACETAMINOPHEN/CODEINE 300-30 MG TABLET PO PRN ×4 (03:00→20:50)
[2020-11-19 04:43] LABS: Basophils % 0.4 % (0.0-0.8); Eosinophils # 0.1 10*3/uL (0.0-0.87); Eosinophils % 0.6 % (0.00-10.9); Hematocrit 36.8 VOL% (35.7-47.0); Hemoglobin 11.4 GM/DL (12.0-16.0); Immature Granulocytes % 0.3 %; Immature Granulocytes Absolute 0.03 #; Lymphocytes # 4.8 10*3/uL (1.4-4.0); Lymphocytes % 54.3 % (21.3-54.2); Mean Corpuscular Volume 98.7 FL (87-102); Mean Platelet Volume 11.5 FL (9.6-12.0); Monocytes % 11.7 % (1.7-12.7); Neutrophils % 32.7 % (38.7-73.9); Platelet Count 136 T/CUMM (130-400); Red Blood Count 3.73 MC/CUMM (3.8-5.5); Red Cell Distribution Width 15.4 % (9.3-17.3); White Blood Count 8.9 T/CUMM (4-12)
[2020-11-19 05:10] LABS: Lymphocytes 58 % (20-55); Segmented Neutrophils 39 % (50-85); Total Cells Counted 100
[2020-11-19 05:11] LABS: Atypical Lymphocytes Few; Platelet Estimate Normal
[2020-11-19 05:19] LABS: Albumin 2.1 G/DL (3.4-5.0); Bilirubin,Total 0.7 MG/DL (0.20-1.00); Calcium 8.1 MG/DL (8.5-10.1); Osmolality,Calculated 265.2 MOS/KG (273-304); Potassium 4.3 MMOL/L (3.5-5.1); Total Protein 5.5 G/DL (6.4-8.2)
[2020-11-19] MEDS: LEVOTHYROXINE 50 MCG TABLET PO SCH (06:07)
[2020-11-19] MEDS ORDERED: BISACODYL 10 MG SUPP RECTAL ONE (08:03)
[2020-11-19] MEDS: ENOXAPARIN 40 MG/0.4 ML SYRINGE SUBCUT SCH (08:51)
[2020-11-19] MEDS: MEGESTROL 40 MG TABLET PO SCH (08:52)
[2020-11-19] MEDS: PANTOPRAZOLE 40 MG TABLET PO SCH (08:52)
[2020-11-19] MEDS: POLYETHYLENE GLYCOL POWDER 17 GM PACK PO SCH ×2 (08:52→20:51)
[2020-11-19] MEDS: carvediloL 25 MG TABLET PO SCH ×2 (08:52→20:51)
[2020-11-19] MEDS: CHOLECALCIFEROL 1,000 UNIT TABLET PO SCH (08:52)
[2020-11-19] MEDS: LOSARTAN 25 MG TABLET PO SCH ×2 (08:52→20:51)
[2020-11-19] MEDS: SODIUM CHLORIDE 0.9% 1,000 ML IV SCH ×3 (09:51→23:55)
[2020-11-19 11:29] LABS: Hepatitis B Core IgM Quant 0.08 Index; Hepatitis B Surface Ag Quant < 0.10 Index; Hepatitis B Surface Ag Result Non-Reactive (NonReactive); Hepatitis C Virus Ab Quant 0.04 Index; Hepatitis C Virus Ab Result Non-Reactive (NonReactive)
[2020-11-19] MEDS: ONDANSETRON 4 MG/2 ML VIAL IV PRN (15:27)
[2020-11-19] MEDS: DOCUSATE SODIUM 100 MG CAPSULE PO SCH (20:49)
[2020-11-20] MEDS: ACETAMINOPHEN/CODEINE 300-30 MG TABLET PO PRN ×2 (01:10→08:59)
[2020-11-20 04:45] LABS: Basophils # 0.1 10*3/uL (0.0-0.2); Basophils % 0.7 % (0.0-0.8); Eosinophils # 0.1 10*3/uL (0.0-0.87); Eosinophils % 0.5 % (0.00-10.9); Hematocrit 32.4 VOL% (35.7-47.0); Hemoglobin 9.9 GM/DL (12.0-16.0); Immature Granulocytes % 0.2 %; Immature Granulocytes Absolute 0.02 #; Lymphocytes # 5.4 10*3/uL (1.4-4.0); Lymphocytes % 59.5 % (21.3-54.2); Mean Corpuscular HGB Conc 30.6 GM/DL (32-36); Mean Corpuscular Volume 99.4 FL (87-102); Mean Platelet Volume 10.4 FL (9.6-12.0); Monocytes % 5.9 % (1.7-12.7); Neutrophils % 33.2 % (38.7-73.9); Platelet Count 177 T/CUMM (130-400); Red Blood Count 3.26 MC/CUMM (3.8-5.5); Red Cell Distribution Width 15.5 % (9.3-17.3); White Blood Count 9.1 T/CUMM (4-12)
[2020-11-20 05:17] LABS: Albumin 2.1 G/DL (3.4-5.0); Bilirubin,Total 1.3 MG/DL (0.20-1.00); Calcium 7.8 MG/DL (8.5-10.1); Osmolality,Calculated 276.4 MOS/KG (273-304); Potassium 3.9 MMOL/L (3.5-5.1); Total Protein 4.6 G/DL (6.4-8.2)
[2020-11-20 05:24] LABS: Eosinophils 1 % (0-10); Lymphocytes 47 % (20-55); Platelet Estimate Adequate; Segmented Neutrophils 45 % (50-85); Total Cells Counted 100
[2020-11-20 05:25] LABS: Atypical Lymphocytes Few; Hypochromasia 1+; Microcytosis 1+
[2020-11-20] MEDS: SODIUM CHLORIDE 0.9% 1,000 ML IV SCH (06:21)
[2020-11-20] MEDS: LEVOTHYROXINE 50 MCG TABLET PO SCH (06:21)
[2020-11-20] MEDS: DOCUSATE SODIUM 100 MG CAPSULE PO SCH (09:01)
[2020-11-20] MEDS: PANTOPRAZOLE 40 MG TABLET PO SCH (09:01)
[2020-11-20] MEDS: CHOLECALCIFEROL 1,000 UNIT TABLET PO SCH (09:01)
[2020-11-20] MEDS: MEGESTROL 40 MG TABLET PO SCH (09:01)
[2020-11-20] MEDS: LOSARTAN 25 MG TABLET PO SCH (09:02)
[2020-11-20] MEDS: carvediloL 25 MG TABLET PO SCH (09:02)
[2020-11-20] MEDS: POLYETHYLENE GLYCOL POWDER 17 GM PACK PO SCH (09:04)
[2020-11-20] MEDS: ENOXAPARIN 40 MG/0.4 ML SYRINGE SUBCUT SCH (09:04)
[2020-11-20 12:09] VITALS: BP 121/59
== END 2020-11-20 13:40 | disposition home health service (06) | DRG 841 ==
LOC: EDBD → EDUNIT# → N.EDINP 20:08 → N.ED 20:08 → N.4E 11-16 00:33 → N.TELES 11-17 16:03
PROVIDERS: ADMIT Internal Medicine; ATTEND Internal Medicine

== ENCOUNTER 2021-10-08 10:48 | Observation (INO) ==
[2021-10-08] MEDS ORDERED: DILTIAZEM 25 MG/5 ML VIAL IV ONE (11:20)
[2021-10-08] MEDS ORDERED: DILTIAZEM 25 MG/5 ML VIAL IV STA (11:25)
[2021-10-08] MEDS ORDERED: DILTIAZEM 100 MG VIAL.ADD IV ONE (11:25)
[2021-10-08] MEDS ORDERED: DILTIAZEM INJ 100 MG in SODIUM CHLORIDE 0.9% 100 ML IV SCH (11:30)
[2021-10-08 11:39] LABS: Basophils % 0.2 % (0.0-0.8); Hematocrit 38.6 VOL% (35.7-47.0); Hemoglobin 12.4 GM/DL (12.0-16.0); Immature Granulocytes % 0.3 %; Immature Granulocytes Absolute 0.05 #; Lymphocytes # 8.5 10*3/uL (1.4-4.0); Lymphocytes % 58.3 % (21.3-54.2); Mean Corpuscular HGB Conc 32.1 GM/DL (32-36); Mean Platelet Volume 11.6 FL (9.6-12.0); Monocytes # 0.3 10*3/uL (0.11-0.8); Monocytes % 2.1 % (1.7-12.7); Neutrophils % 39.1 % (38.7-73.9); Platelet Count 153 T/CUMM (130-400); Red Blood Count 3.98 MC/CUMM (3.8-5.5); Red Cell Distribution Width 14.1 % (9.3-17.3); White Blood Count 14.5 T/CUMM (4-12)
[2021-10-08 11:44] LABS: INR 1.2
[2021-10-08 11:51] LABS: Albumin 3.6 G/DL (3.4-5.0); Bilirubin,Total 0.6 MG/DL (0.20-1.00); Osmolality,Calculated 285.4 MOS/KG (273-304); Potassium 3.5 MMOL/L (3.5-5.1); Thyroid Stimulating Hormone 0.519 uIU/ml (0.358-3.74); Total Protein 6.3 G/DL (6.4-8.2)
[2021-10-08 12:34] LABS: Lymphocytes 61 % (20-55); Total Cells Counted 100
[2021-10-08 12:35] LABS: Platelet Estimate Adequate
[2021-10-08] MEDS ORDERED: ONDANSETRON 4 MG/2 ML VIAL IV PRN (14:27)
[2021-10-08] MEDS ORDERED: DEXTROSE 10% 250 ML BAG IV PRN (14:27)
[2021-10-08] MEDS ORDERED: GLUCAGON 1 MG VIAL IM PRN (14:27)
[2021-10-08] MEDS ORDERED: ENOXAPARIN 40 MG/0.4 ML SYRINGE SUBCUT SCH (14:30)
[2021-10-08] MEDS ORDERED: amLODIPine 5 MG TABLET PO ONE (14:48)
[2021-10-08] MEDS ORDERED: hydrALAZINE 20 MG/1 ML VIAL IV PRN (14:51)
[2021-10-08] MEDS: DOCUSATE SODIUM 100 MG CAPSULE PO SCH (20:18)
[2021-10-08] MEDS: ASCORBIC ACID 500 MG TABLET PO SCH (20:18)
[2021-10-08] MEDS: BUTALBITAL/ACETAMIN/CAFFEINE 50-325-40 MG TABLET PO PRN (20:19)
[2021-10-08] MEDS: carvediloL 25 MG TABLET PO SCH (20:19)
[2021-10-08] MEDS ORDERED: LOSARTAN 25 MG TABLET PO SCH (21:00)
[2021-10-08] MEDS ORDERED: ROSUVASTATIN 10 MG TABLET PO SCH (21:00)
[2021-10-09] MEDS: BUTALBITAL/ACETAMIN/CAFFEINE 50-325-40 MG TABLET PO PRN (02:01)
[2021-10-09 04:06] LABS: Basophils % 0.2 % (0.0-0.8); Hematocrit 33.5 VOL% (35.7-47.0); Hemoglobin 10.9 GM/DL (12.0-16.0); Immature Granulocytes % 0.3 %; Immature Granulocytes Absolute 0.04 #; Lymphocytes # 7.8 10*3/uL (1.4-4.0); Lymphocytes % 60.2 % (21.3-54.2); Mean Corpuscular HGB Conc 32.5 GM/DL (32-36); Mean Corpuscular Volume 95.7 FL (87-102); Mean Platelet Volume 11.4 FL (9.6-12.0); Monocytes # 0.5 10*3/uL (0.11-0.8); Monocytes % 3.5 % (1.7-12.7); Neutrophils % 35.8 % (38.7-73.9); Platelet Count 124 T/CUMM (130-400); Red Cell Distribution Width 14.2 % (9.3-17.3); White Blood Count 12.9 T/CUMM (4-12)
[2021-10-09 04:21] LABS: Calcium 8.7 MG/DL (8.5-10.1); Osmolality,Calculated 285.3 MOS/KG (273-304); Potassium 3.6 MMOL/L (3.5-5.1)
[2021-10-09 04:50] LABS: Lymphocytes 60 % (20-55); Platelet Estimate Normal; Total Cells Counted 100
[2021-10-09 05:35] LABS: Smudge Cells Few
[2021-10-09] MEDS ORDERED: LEVOTHYROXINE 50 MCG TABLET PO SCH (06:30)
[2021-10-09] MEDS: ASCORBIC ACID 500 MG TABLET PO SCH (08:55)
[2021-10-09] MEDS: DOCUSATE SODIUM 100 MG CAPSULE PO SCH (08:56)
[2021-10-09] MEDS: carvediloL 25 MG TABLET PO SCH (08:56)
[2021-10-09] MEDS ORDERED: POLYETHYLENE GLYCOL POWDER 17 GM PACK PO SCH (09:00)
[2021-10-09] MEDS ORDERED: DILTIAZEM CD 120 MG CAPSULE PO SCH (09:00)
[2021-10-09] MEDS ORDERED: PANTOPRAZOLE 40 MG TABLET PO SCH (09:00)
[2021-10-09] MEDS ORDERED: DILTIAZEM 30 MG TABLET PO SCH (09:00)
[2021-10-09] MEDS ORDERED: CHOLECALCIFEROL 1,000 UNIT TABLET PO SCH (09:00)
[2021-10-09] MEDS ORDERED: LOSARTAN 50 MG TABLET PO SCH (09:00)
[2021-10-09 12:29] VITALS: BP 171/67
[2021-10-10] MEDS ORDERED: LOSARTAN 50 MG TABLET PO SCH (09:00)
== END 2021-10-09 14:13 | disposition home or self-care (01) ==
LOC: N.ED 10:48 → N.EDINP 10:48 → SUATTDRO 14:18 → N.TELEN 16:18
PROVIDERS: ADMIT Internal Medicine; ATTEND Internal Medicine